=== PATIENT | female | born 1945 | race Caucasian/White ===

== ENCOUNTER 2019-03-27 11:46 | Emergency (ER) | payer MEDICARE, OTHER, SELFPAY ==
--- NOTE | ~2019-03-27 | XR_ITS ---
EXAMINATION: XR chest 2V EXAM DATE: 03/27/2019 12:43 INDICATION: Upper chest pain, jaw pain. TECHNIQUE: Frontal and lateral projections of the chest obtained and reviewed. Comparison is made to prior examination from 07/11/2018. FINDINGS: The lungs are clear. There are no pleural effusions. Mild cardiomegaly. There is no pneu mothorax suspected. The bones and soft tissues are unremarkable. There is no significant interval change. IMPRESSION: Mild cardiomegaly Reviewed, dictated and finalized at location B. PING AND RECEIVING WEIGHER IMPRESSION: Mild cardiomegaly
[2019-03-27 11:45] VITALS: BP 161/79; PULSE 86; RESP 18; TEMP 36.3; O2SAT 96
[2019-03-27 11:49] VITALS: PULSE 82
--- NOTE | 2019-03-27 11:59 | ECG_ITS ---
Measurements Intervals [place] Rate: 81 P: 60 PA: 200 QRS: -44 QRSD: 157 T: 75 QT: 417 QTc: 486 Interpretive Statements SINUS RHYTHM LEFT AXIS DEVIATION BORDERLINE AV CONDUCTION DELAY LEFT BUNDLE BRANCH BLOCK INFERIOR INFARCT OR DUE TO LBBB ABNORMAL ECG Electronically Signed On 03-27-2019 16:14:23 CONTROLLED AREA CHECKER by Tom Hernandez D.O.
--- NOTE | 2019-03-27 12:09 | ED.CHESTPAIN ---
HPI - Chest Pain General Chief Complaint: Chest Pain Stated Complaint: chest pain Time Seen by Provider: 03/27/19 12:06 Source: patient Mode of arrival: EMS Limitations: no limitations History of Present Illness HPI narrative: The pt is a 74 y/o female who presents to the ED, via EMS, c/o midsternal CP onset [id number] today. Pt describes the pain as a pressure that radiates to the jaw. Pt states that the pain was a 10/10, and lasted for 30 minutes. She states when she called EMS, her pain was still presently slightly, but was fully resolved with Aspirin x4 and nitroglycerin. Pt notes that nothing exacerbated her pain. Pt denies SOB, N/V, and diaphoresis. She states that she has a PMHx of HTN and DM, and notes that she had a stress test six months ago at this hospital that was unremarkable. complaint: chest pain Onset (ago): hour(s) (1.25-1.5) Timing of current episode: now resolved Pain location: other (Midsternal) Pain radiation: jaw/teeth Pain scale (0-10): 10 Quality: other (Pressure) Relieving factors: nitroglycerin and other (Aspirin) Exacerbating factors: nothing Associated symptoms: other (None) Treatment prior to arrival: aspirin and nitroglycerin Related Data Home Medications Medication Instructions Recorded Confirmed ketotifen fumarate 0.025 % (0.035 2 drop EACH EYE BID ml 02/06/ %) eye drops cholecalciferol (vitamin D3) 03/27/19 Allergies Allergy/AdvReac Type Severity Reaction Status Date / Time No Known Allergies Allergy Verified 03/27/19 11:58 Review of Systems Review of Systems: Narrative: Review of Systems Constitutional: Negative for diaphoresis. Respiratory: Negative for shortness of breath. Cardiovascular: Positive for resolved midsternal chest pain described as a pressure radiating to the jaw. Gastrointestinal: Negative for nausea and vomiting. All systems reviewed & are unremarkable except as noted in HPI and below PMFSH Past Medical History Medical History (Updated 03/27/19 @ 16:11 by Odalis Jin MD) Anxiety Bilateral hip pain Carpal tunnel syndrome Dyslipidemia Gastroesophageal reflux disease Gout Hammer toe Hepatic steatosis HLD (hyperlipidemia) HTN (hypertension) IFG (impaired fasting glucose) Intraductal papillary mucinous neoplasia Left bundle branch block Metabolic syndrome Pancreatic cyst Primary osteoarthritis of left knee Primary osteoarthritis of right knee Right clavicle fracture RLS (restless legs syndrome) Sleep apnea Uses CPAP Type 2 diabetes mellitus with diabetic neuropathy, without long-term current use of insulin Vitamin D deficiency, unspecified Surgical History Surgical History (Updated 03/27/19 @ 12:20 by Harpal Hurt) H/O: hysterectomy History of orthopedic surgery Right toe surgery Hx of tonsillectomy Presence of right artificial knee joint Family History Family History (Updated 10/22/13 @ 07:13 by DOCTOR UNKNOWN) Mother Cerebrovascular accident Father Family history of coronary artery disease Other Family history of arthritis Hypertension Social History Social History Smoking status: Never smoker Alcohol intake: never Comments PCP: Dr. Mack Exam Narrative: Exam Narrative: Constitutional: Appears well-developed. No distress. HENT: Head: Normocephalic. Nose: Nose normal. Mouth/Throat: Oropharynx is clear and moist. Eyes: Conjunctiva are normal. Neck: Normal range of motion. Neck supple. Cardiovascular: Normal rate and regular rhythm. Pulmonary/Chest: Effort normal and breath sounds normal. Abdominal: Soft. There is no tenderness. Musculoskeletal: Normal range of motion. No edema. Neurological: Alert and oriented to person, place, and time. Skin: Skin is warm. No pallor. Psychiatric: Normal mood and affect. Course Vital Signs Vital signs: Vital Signs Temperature 36.3 C L 03/27/19 11:45 Pulse Rate 86 03/27/19 11:45 Respiratory Rate 18 03/27/19 11:45 Blood Pres
[2019-03-27 12:16] VITALS: BP 128/69; PULSE 88; RESP 18; O2SAT 92
[2019-03-27 12:20] LABS: Basophils Absolute Auto 0.1 K/mm3 (0.0-0.1); Basophils Percent Auto 0.8 % (0.2-1.2); Eosinophils Absolute Auto 0.2 K/mm3 (0-0.3); Hemoglobin 12.5 g/dL (12.0-15.0); Immature Granulocyte Absolute 0.02 K/mm3 (0.00-0.031); Immature Granulocyte Percent A 0.3 % (0-0.5); Lymphocytes Absolute Auto 2.39 K/mm3 (0.9-3.2); Lymphocytes Percent Auto 32.9 % (18.3-44.2); Mean Corpuscular HGB Conc 32.1 g/dl (32-36); Mean Corpuscular Hemoglobin 26.4 pg (26-34); Mean Corpuscular Volume 82.5 fl (80-100); Mean Platelet Volume 10.4 fl (7.4-10.4); Monocytes Absolute Auto 0.6 K/mm3 (0.1-0.6); Platelet Count Result 254 k/mm3 (150-375); Red Blood Count 4.73 M/mm3 (4.2-5.4); Red Cell Distribution Width 14.2 % (11.5-14.5); White Blood Count 7.3 K/mm3 (4.5-10.0)
[2019-03-27 12:31] LABS: Blood Urea Nitrogen 14 mg/dL (7-17); Calcium 9.2 mg/dL (8.4-10.2); Carbon Dioxide 26 mmol/L (22-30); Chloride 96 mmol/L (98-107); Estimated CRCL calculation 68 ml/min; Estimated Glomerular Filt Rate > 60; Glucose 119 mg/dL (65-105); Potassium 3.8 mmol/L (3.4-5.0); Sodium 136 mmol/L (137-145)
[2019-03-27 12:35] LABS: Prothrombin Time 12.5 Seconds (11.1-14.7)
[2019-03-27 12:36] LABS: Partial Thromboplastin Time 28.6 SECONDS (22.3-36.8)
[2019-03-27 12:43] LABS: Troponin I < 0.012 ng/mL (0.000-0.034)
[2019-03-27 13:02] VITALS: BP 118/60; PULSE 71; RESP 18; O2SAT 94
[2019-03-27 15:04] VITALS: BP 124/69; PULSE 68; RESP 18; O2SAT 95
[2019-03-27 15:31] LABS: Troponin I < 0.012 ng/mL (0.000-0.034)
[2019-03-27 16:23] VITALS: BP 130/65; PULSE 65; RESP 15; O2SAT 94
== END 2019-03-27 16:27 | disposition home or self-care (01) ==
PROVIDERS: General Practice; Emergency Provider Emergency Medicine; PCP Family Medicine
DX: R07.2 Precordial pain (principal); I10 Essential (primary) hypertension; E78.5 Hyperlipidemia, unspecified; K21.9 Gastro-esophageal reflux disease without esophagitis; M17.0 Bilateral primary osteoarthritis of knee; G25.81 Restless legs syndrome; E11.40 Type 2 diabetes mellitus with diabetic neuropathy, unspecified; E55.9 Vitamin D deficiency, unspecified; Z96.651 Presence of right artificial knee joint; I44.7 Left bundle-branch block, unspecified; R94.31 Abnormal electrocardiogram [ECG] [EKG]
CPT/HCPCS: 36415; 71046; 80048; 84484; 85025; 85610; 85730; 93005; 99284

== ENCOUNTER 2019-04-09 11:38 | Outpatient (CLI) | payer MEDICARE, OTHER, SELFPAY ==
--- NOTE | ~2019-04-09 | MMUS_ITS ---
EXAMINATION: MM diagnostic mammo unilat LT, US breast LT limited HISTORY: Focal asymmetry in upper left breast on screening MLO view of 03/17/2019 TECHNIQUE: Additional 3-D tomosynthesis images of the left breast were performed and synthetic 2-D im ages were generated. CAD analysis was submitted and interpreted. High resolution upper inner and uppe r outer quadrant left breast ultrasound examination was performed. COMPARISON: 03/17/2019 bilateral digital screening mammogram MAMMOGRAM FINDINGS: No reproducible mass is evident on orthogonal views. There is likely mild asymmet nidhi fibroglandular stroma posteriorly in the upper left breast. Ultrasound correlation was obtained. LEFT BREAST ULTRASOUND FINDINGS:No suspicious mass or shadowing is evident. IMPRESSION: 1. Probable benign mild fibroglandular asymmetry 2. 6 month diagnostic left mammogram follow-up is recommended. BI-RADS category 3, probably benign findings. Reviewed, dictated and finalized at location A. URY PURIFIER IMPRESSION: 1. Probable benign mild fibroglandular asymmetry 2. 6 month diagnostic left mammogram follow-up is recommended. BI-RADS category 3, probably benign findings.
== END 2019-04-09 11:39 | disposition home or self-care (01) ==
LOC: ANHIMG 11:39
PROVIDERS: PCP Family Medicine; Visit Provider Family Medicine
DX: R92.8 Other abnormal and inconclusive findings on diagnostic imaging of breast (principal)
CPT/HCPCS: 76642; 77065

== ENCOUNTER 2019-04-27 15:02 | Outpatient (CLI) | payer MEDICARE, OTHER, SELFPAY ==
--- NOTE | ~2019-04-27 | XR_ITS ---
XR hip RT 2V w AP pelvis 04/27/2019 15:27 Indication: Right hip pain Procedure: AP pelvis and 2 views right hip Comparison: No prior studies for comparison. Findings: There is mild osteoarthritis of the hips. Pelvic rings are intact. Sacral foramen are symme tric. No fracture or traumatic malalignment. Impression: 1: Mild osteoarthritis of the hips. Reviewed, dictated and finalized at location B. NERY OPERATOR [employer]OVERY Impression: 1: Mild osteoarthritis of the hips.
== END 2019-04-27 15:03 | disposition home or self-care (01) ==
PROVIDERS: PCP Family Medicine; Visit Provider Physician Assistant
DX: M25.551 Pain in right hip (principal); M16.0 Bilateral primary osteoarthritis of hip
CPT/HCPCS: 73502; 73521

== ENCOUNTER 2019-04-29 13:37 | Outpatient (CLI) | payer MEDICARE, OTHER, SELFPAY ==
--- NOTE | ~2019-04-29 | US_ITS ---
US soft tissue groin RT 04/29/2019 14:20 Indication: Right hip pain Procedure: High-resolution ultrasound of the right groin Comparison: No prior studies for comparison. Findings: Normal heterogeneous soft tissues without evidence for hernia. There is a 2.3 cm lymph node with normal fatty hilum. Impression: 1: Normal limited ultrasound of the right groin without evidence for hernia. Reviewed, dictated and finalized at location B. ETOLOGY TEACHER Impression: 1: Normal limited ultrasound of the right groin without evidence for hernia.
== END 2019-04-29 13:38 | disposition home or self-care (01) ==
PROVIDERS: PCP Family Medicine; Visit Provider Physician Assistant
DX: M25.551 Pain in right hip (principal)
CPT/HCPCS: 76882

== ENCOUNTER 2019-12-08 12:01 | Outpatient (CLI) | payer MEDICARE, OTHER, SELFPAY ==
--- NOTE | ~2019-12-08 | MMUS_ITS ---
EXAMINATION: MM diagnostic [place] LT w camille, US breast LT limited HISTORY: Follow-up left breast asymmetry TECHNIQUE: Additional 3-D tomosynthesis images of the left breast were performed and synthetic 2-D im ages were generated. CAD analysis was submitted and interpreted. High resolution Limited left breast ultrasound was performed. COMPARISON: 03/17/2019 BREAST PARENCHYMAL COMPOSITION: Breast composed of scattered areas of fibroglandular density. FINDINGS: MAMMOGRAPHIC FINDINGS: There is persistent focal asymmetry central aspect of the left breast posteriorly on MLO view only. N o discrete mass or suspicious calcifications are identified. ULTRASOUND: Limited left breast ultrasound: Normal heterogeneous echotexture without focal solid or cystic mass. IMPRESSION: 1. Stable left breast asymmetry without sonographic correlate, likely benign. 2. Recommend 6 month follow-up bilateral mammogram BI-RADS category 3, probably benign findings. Reviewed, dictated and finalized at location A. IMPRESSION: 1. Stable left breast asymmetry without sonographic correlate, likely benign. 2. Recommend 6 month follow-up bilateral mammogram BI-RADS category 3, probably benign findings.
== END 2019-12-08 12:02 | disposition home or self-care (01) ==
PROVIDERS: PCP Family Medicine; Visit Provider Family Medicine
DX: R92.8 Other abnormal and inconclusive findings on diagnostic imaging of breast (principal)
CPT/HCPCS: 76642; 77061; 77065; G0279

== ENCOUNTER 2020-06-13 14:30 | Outpatient (CLI) | payer MEDICARE, OTHER, SELFPAY ==
--- NOTE | ~2020-06-13 | XR_ITS ---
XR chest 2V DATE: 06/13/2020 14:48 INDICATION: Cough TECHNIQUE: PA and lateral views COMPARISON: 2 view chest FINDINGS: There is mild cardiomegaly. No hilar or mediastinal enlargement. Mild bilateral apical capp ing. There is old pulmonary granulomatous disease. No pulmonary infiltrate or consolidation, pleural effusion or pulmonary vascular congestion or pneumothorax is evident. Diffuse osteopenia. IMPRESSION: Mild cardiomegaly No active pulmonary disease Reviewed, dictated and finalized at location A.
== END 2020-06-13 14:31 | disposition home or self-care (01) ==
PROVIDERS: PCP Family Medicine; Visit Provider Family Medicine
DX: R05 Cough (principal); I51.7 Cardiomegaly
CPT/HCPCS: 71046

== ENCOUNTER 2020-09-06 13:09 | Outpatient (CLI) | payer MEDICARE, OTHER, SELFPAY ==
--- NOTE | ~2020-09-06 | MM_ITS ---
EXAMINATION: MM diagnostic [place] BI w camille HISTORY: Six-month follow-up for probably benign asymmetry of the left breast. TECHNIQUE: Craniocaudal, mediolateral, and mediolateral oblique 3-D tomosynthesis images of the breas ts were performed and synthetic 2-D images were generated. CAD analysis was submitted and interpreted . COMPARISON: Prior mammograms dating back to 12/19/2015 BREAST PARENCHYMAL COMPOSITION: There are scattered areas of fibroglandular density. FINDINGS: There is no evidence of suspicious mass, calcification, or architectural distortion in eit her breast to suggest malignancy. There has been no suspicious interval change. The left breast asym metry has a similar appearance on multiple prior mammograms dating back to 2015. IMPRESSION: 1. No mammographic evidence of malignancy. 2. Recommend routine screening mammography in one year. BI-RADS Category 2: Benign finding(s). Reviewed, dictated and finalized at location A.
== END 2020-09-06 13:10 | disposition home or self-care (01) ==
PROVIDERS: PCP Family Medicine; Visit Provider Family Medicine
DX: R92.8 Other abnormal and inconclusive findings on diagnostic imaging of breast (principal)
CPT/HCPCS: 77062; 77066; G0279

== ENCOUNTER 2020-09-14 11:27 | Emergency (ER) | payer MEDICARE, OTHER, SELFPAY ==
[2020-09-14] VITALS (9 sets, daily range): BP systolic 132–143; BP diastolic 59–80; PULSE 74–82; RESP 13–22; TEMP 36.2; O2SAT 97–98
--- NOTE | ~2020-09-14 | US_ITS ---
US venous doppler [facility] DATE: 09/14/2020 15:32 INDICATION: Pain and swelling of right lower extremity. Abnormal d-dimer. TECHNIQUE: Real-time and color flow imaging and Doppler analysis COMPARISON: None FINDINGS: The greater saphenous veins are patent patent. There is spontaneous and phasic flow and nor mal augmentation and color flow signal and normal compression of the deep veins of the right and left lower extremities IMPRESSION: No evidence of deep venous thrombosis of the lower extremities Reviewed, dictated and finalized at Location A. Reviewed, dictated and finalized at location A.
[2020-09-14 12:51] LABS: Basophils Absolute Auto 0.1 K/mm3 (0.0-0.1); Eosinophils Absolute Auto 0.2 K/mm3 (0-0.3); Eosinophils Percent Auto 3.8 % (0-4.4); Hematocrit 37.3 % (37.0-47.0); Hemoglobin 11.8 g/dL (12.0-15.0); Immature Granulocyte Absolute 0.01 K/mm3 (0.00-0.031); Immature Granulocyte Percent A 0.2 % (0-0.5); Lymphocytes Absolute Auto 2.61 K/mm3 (0.9-3.2); Lymphocytes Percent Auto 41.6 % (18.3-44.2); Mean Corpuscular HGB Conc 31.6 g/dl (32-36); Mean Corpuscular Hemoglobin 26.6 pg (26-34); Mean Corpuscular Volume 84.2 fl (80-100); Mean Platelet Volume 10.7 fl (7.4-10.4); Monocytes Absolute Auto 0.6 K/mm3 (0.1-0.6); Monocytes Percent Auto 10.2 % (2.6-8.5); Neutrophils Absolute Auto 2.7 K/mm3 (1.3-6.7); Neutrophils Percent Auto 43.2 % (45.5-73.1); Platelet Count Result 240 k/mm3 (150-375); Red Blood Count 4.43 M/mm3 (4.2-5.4); Red Cell Distribution Width 14.6 % (11.5-14.5); White Blood Count 6.3 K/mm3 (4.5-10.0)
[2020-09-14 13:01] LABS: Alanine Aminotransferase 38 U/L (4-35); Albumin Level 4.2 g/dL (3.5-5.1); Alkaline Phosphatase 86 U/L (38-126); Anion Gap 10 mmol/L (8-16); Aspartate Amino Transferase 50 U/L (14-36); Bilirubin,Total 0.5 mg/dL (0.2-1.3); Blood Urea Nitrogen 18 mg/dL (7-17); Calcium 9.1 mg/dL (8.4-10.2); Carbon Dioxide 27 mmol/L (22-30); Chloride 101 mmol/L (98-107); Estimated CRCL calculation 82 ml/min; Estimated Glomerular Filt Rate > 60; Glucose 97 mg/dL (65-110); Potassium 3.6 mmol/L (3.4-5.0); Sodium 138 mmol/L (137-145)
[2020-09-14 13:07] LABS: Add Urine Microscopic? YES; Appearance Urine Clear (Clear); Bacteria Urine Trace /hpf; Bilirubin Urine Negative (Negative); Blood Urine Negative (Negative); Color Urine Yellow (Yellow); Glucose Urine UA Negative (Negative); Ketones Urine Negative (Negative); Leukocyte Esterase Ur Negative LEU/UL (Negative); Mucus Urine Rare /lpf; Nitrate Urine Negative (Negative); Protein Urine Negative (Negative); RBC Urine 0-2 /hpf (0-2); Specific Grav Ur 1.016 (1.001-1.035); Squamous Epithelial Cell Urine Occasional /hpf (Few); Urobilinogen Urine Negative mg/dL (<2.0); WBC Urine 0-3 /hpf
[2020-09-14 13:09] LABS: NT Pro B Type Natriuretic Pept 235 pg/mL (5-100)
--- NOTE | 2020-09-14 13:14 | PC.NURSE ---
called hematology added on a D ddimer at 1311 and talked to Margaret
[2020-09-14 13:32] LABS: D Dimer 0.75 ug/mL (<0.48)
--- NOTE | 2020-09-14 14:56 | ED.EXTPRO ---
HPI - Extremity Problem General Chief complaint: Extremity Problem,Nontraumatic Stated complaint: LOWER EXT SWELLING Time Seen by Provider: 09/14/20 12:23 Source: patient Mode of arrival: ambulatory Limitations: no limitations History of Present Illness HPI Narrative: 75-year-old female Patient is here because of lower extremity swelling She went to an urgent care and they were concerned for blood clot and referred her to the ED Patient reports that her left leg is chronically swollen However it is a little more painful since yesterday Her right leg which is usually not swollen is a little bit more swollen but not painful She had a knee replacement on the right Related Data Home Medications Medication Instructions Recorded Confirmed cholecalciferol (vitamin D3) 03/27/19 06/13/20 cyclosporine 0.05 % eye drops in a 1 drp OPHTHALMIC (EYE) Q12H 03/15/20 06/13/20 dropperette Allergies Allergy/AdvReac Type Severity Reaction Status Date / Time No Known Allergies Allergy Verified 09/14/20 11:41 PMF Past Medical History Medical History (Updated 09/14/20 @ 15:49 by Endy Keith MD) Anxiety Bilateral hip pain Carpal tunnel syndrome Dyslipidemia Gastroesophageal reflux disease Gout Hammer toe Hepatic steatosis HLD (hyperlipidemia) HTN (hypertension) IFG (impaired fasting glucose) Intraductal papillary mucinous neoplasia Left bundle branch block Metabolic syndrome Pancreatic cyst Primary osteoarthritis of left knee Primary osteoarthritis of right knee Right clavicle fracture RLS (restless legs syndrome) Sleep apnea Uses CPAP Type 2 diabetes mellitus with diabetic neuropathy, without long-term current use of insulin Vitamin D deficiency, unspecified Surgical History Surgical History (Updated 07/15/20 @ 08:20 by Tania Daniel CMA) H/O cataract extraction Bilateral eyes June 2020 H/O: hysterectomy History of orthopedic surgery Right toe surgery Hx of tonsillectomy Presence of right artificial knee joint Family History Family History Mother Cerebrovascular accident Father Family history of coronary artery disease Other Family history of arthritis Hypertension Social History Social History (Updated 07/15/20 @ 08:15 by Tania Daniel CMA) Smoking status: Never smoker Second hand tobacco smoke exposure: No Alcohol intake: never Substance use: never Substance use type: does not use Gender identity (if verbalized by the patient): Female Course Vital Signs Vital signs: Vital Signs Temperature 36.2 C L 09/14/20 11:38 Pulse Rate 75 09/14/20 11:38 Respiratory Rate 18 09/14/20 11:38 Blood Pressure 143/59 H 09/14/20 11:38 Pulse Oximetry 97 09/14/20 11:38 Temperature 36.2 C L 09/14/20 11:38 Pulse Rate 82 09/14/20 12:49 Respiratory Rate 17 09/14/20 12:49 Blood Pressure 138/62 09/14/20 12:16 Pulse Oximetry 98 09/14/20 12:43 MDM - Extremity (Nontraumatic) Lab Data Result diagrams: 09/14/20 12:42 09/14/20 12:42 Labs: Lab Results 09/14/20 09/14/20 09/14/20 Range/Units 12:42 12:42 12:42 WBC 6.3 (4.5-10.0) K/mm3 RBC 4.43 (4.2-5.4) M/mm3 Hgb 11.8 L (12.0-15.0) g/dL Hct 37.3 (37.0-47.0) % MCV 84.2 (80-100) fl MCH 26.6 (26-34) pg MCHC 31.6 L (32-36) g/dl RDW 14.6 H (11.5-14.5) % Plt Count 240 (150-375) k/mm3 MPV 10.7 H (7.4-10.4) fl Immature Gran % (Auto) 0.2 (0-0.5) % Neut % (Auto) 43.2 L (45.5-73.1) % Lymph % (Auto) 41.6 (18.3-44.2) % Wolfe % (Auto) 10.2 H (2.6-8.5) % Eos % (Auto) 3.8 (0-4.4) % Baso % (Auto) 1.0 (0.2-1.2) % Lymph # (Auto) 2.61 (0.9-3.2) K/mm3 Wolfe # (Auto) 0.6 (0.1-0.6) K/mm3 Eos # (Auto) 0.2 (0-0.3) K/mm3 Baso # (Auto) 0.1 (0.0-0.1) K/mm3 Abs Immat Gran (auto) 0.01 (0.00-0.031) K/mm3 Absolute Neuts (auto)
--- NOTE | 2020-10-13 16:58 | ED.EXTPRO ---
HPI - Extremity Problem General Chief complaint: Extremity Problem,Nontraumatic Stated complaint: LOWER EXT SWELLING Time Seen by Provider: 09/14/20 12:23 Source: patient Mode of arrival: ambulatory Limitations: no limitations Related Data Home Medications Medication Instructions Recorded Confirmed cholecalciferol (vitamin D3) 03/27/19 06/13/20 cyclosporine 0.05 % eye drops in a 1 drp OPHTHALMIC (EYE) Q12H 03/15/20 06/13/20 dropperette Allergies Allergy/AdvReac Type Severity Reaction Status Date / Time No Known Allergies Allergy Verified 09/14/20 11:41 Review of Systems Review of Systems: All systems reviewed & are unremarkable except as noted in HPI and below Constitutional: Constitutional: Reports no additional constitutional complaints, Denies chills, Denies fever(s) and Denies headache(s) Eyes: Eyes: Reports no additional eye complaints and Denies change in vision ENT: Denies headache(s) and Denies sore throat Cardiovascular: Cardiovascular: Denies chest pain and Denies dyspnea Respiratory: Respiratory: Denies cough and Denies dyspnea Gastrointestinal: Gastrointestinal: Denies abdominal pain, Denies diarrhea and Denies vomiting Genitourinary: Genitourinary: Denies urinary frequency and Denies dysuria Musculoskeletal: Musculoskeletal: Denies deformity, Denies arthralgias, Reports joint swelling and Denies numbness Integumentary/Breasts: Skin/Breast: Denies rash and Denies wounds Neurologic: Denies headache(s), Denies focal weakness and Denies numbness Psychiatric: Psychiatric: Reports no additional psychiatric complaints Endocrine: Endocrine: Reports no additional endocrine complaints Hematologic/Lymphatic: Hematologic/Lymphatic: Reports no additional hematologic/lymphatic complaints Allergic/Immunologic: Allergic/Immunologic: Reports no additional allergic/immunologic complaints [facility] Past Medical History Medical History (Updated 09/15/20 @ 00:01 by Background Sierra) Anxiety Bilateral hip pain Carpal tunnel syndrome Dyslipidemia Gastroesophageal reflux disease Gout Hammer toe Hepatic steatosis HLD (hyperlipidemia) HTN (hypertension) IFG (impaired fasting glucose) Intraductal papillary mucinous neoplasia Left bundle branch block Metabolic syndrome Pancreatic cyst Primary osteoarthritis of left knee Primary osteoarthritis of right knee Right clavicle fracture RLS (restless legs syndrome) Sleep apnea Uses CPAP Type 2 diabetes mellitus with diabetic neuropathy, without long-term current use of insulin Vitamin D deficiency, unspecified Surgical History Surgical History (Updated 07/15/20 @ 08:20 by Tania Daniel CMA) H/O cataract extraction Bilateral eyes June 2020 H/O: hysterectomy History of orthopedic surgery Right toe surgery Hx of tonsillectomy Presence of right artificial knee joint Family History Family History Mother Cerebrovascular accident Father Family history of coronary artery disease Other Family history of arthritis Hypertension Social History Social History (Updated 07/15/20 @ 08:15 by Tania Daniel CMA) Smoking status: Never smoker Second hand tobacco smoke exposure: No Alcohol intake: never Substance use: never Substance use type: does not use Gender identity (if verbalized by the patient): Female Exam Const: General: cooperative and no acute distress Orientation/consciousness: patient oriented x3 (alert) HENMT: Head: normal to inspection, normocephalic and atraumatic Ears: external ears normal General nose exam: no epistaxis Eyes: Conjunctivae: conjunctivae normal EOM: EOMs intact bilaterally Neck: Neck: normal visual inspection, supple and no JVD Resp: Effort & Inspection: normal respiratory effort and not labored Auscultation: no rales, no rhonchi, no wheezes and other (BS =) Cardio: Rate: regular rate Rhythm: regular rhythm Heart sounds:
== END 2020-09-14 15:58 | disposition home or self-care (01) ==
PROVIDERS: Emergency Provider Emergency Medicine; PCP Family Medicine
DX: R60.0 Localized edema (principal); F41.9 Anxiety disorder, unspecified; E78.5 Hyperlipidemia, unspecified; K21.9 Gastro-esophageal reflux disease without esophagitis; K76.0 Fatty (change of) liver, not elsewhere classified; I10 Essential (primary) hypertension; E11.40 Type 2 diabetes mellitus with diabetic neuropathy, unspecified; Z79.4 Long term (current) use of insulin; M17.0 Bilateral primary osteoarthritis of knee; G25.81 Restless legs syndrome; G47.30 Sleep apnea, unspecified; E55.9 Vitamin D deficiency, unspecified; Z98.42 Cataract extraction status, left eye; Z98.41 Cataract extraction status, right eye; Z96.651 Presence of right artificial knee joint
CPT/HCPCS: 36415; 80053; 81001; 83880; 85025; 85380; 93970; 99284

== ENCOUNTER → 2020-09-30 01:10 | Outpatient (CLI) | payer MEDICARE, OTHER, SELFPAY ==
[2020-10-01 21:34] LABS: SARS-CoV-2 RNA PCR Negative
== END ==
PROVIDERS: PCP Family Medicine; Visit Provider Physician Assistant
DX: Z20.822 Contact with and (suspected) exposure to COVID-19 (principal); R05 Cough
CPT/HCPCS: C9803; U0003; U0005

== ENCOUNTER → 2021-02-22 02:08 | Outpatient (CLI) | payer MEDICARE, OTHER, SELFPAY ==
[2021-02-23 02:21] LABS: SARS-CoV-2 RNA PCR Negative
== END ==
PROVIDERS: PCP Family Medicine; Visit Provider Physician Assistant
DX: R05.9 Cough, unspecified (principal); R68.89 Other general symptoms and signs; Z20.822 Contact with and (suspected) exposure to COVID-19
CPT/HCPCS: C9803; U0003; U0005

== ENCOUNTER 2021-05-05 09:46 | Outpatient (CLI) | payer MEDICARE, OTHER, SELFPAY ==
--- NOTE | ~2021-05-05 | US_ITS ---
EXAMINATION: US carotid duplex BI EXAM DATE: 05/05/2021 10:19 INDICATION: R42 - Dizziness and giddiness. TECHNIQUE: Grayscale, color and pulsed Doppler images of the cervical carotid arteries were obtained . The degree of vessel stenosis is placed in one of the following categories: normal, <50% stenosis, 50-69% stenosis, >=70% stenosis but less than near-occlusion, near-occlusion, or occlusion. Note that percent stenosis relative to normal distal artery lumen diameter is indirectly measured from velocit y measurements as described by Sean, et al. Radiology 2003; 229:340-346. There is no prior study fo r comparison. FINDINGS: Occasional irregular beat, could be VPC. RIGHT SIDE: Right common carotid artery peak systolic velocity (PSV in cm/s): 90 Right bulb/internal carotid artery peak systolic velocity (PSV in cm/s): 52 Right internal carotid artery end diastolic velocity (EDV in cm/s): 10 Right ICA/CCA peak systolic ratio: 0.6 Right external carotid artery peak systolic velocity (PSV in cm/s): 76 Right vertebral artery antegrade flow: yes There is no focal plaque identified. LEFT SIDE: Left common carotid artery peak systolic velocity (PSV in cm/s): 87 Left bulb/internal carotid artery peak systolic velocity (PSV in cm/s): 158 Left internal carotid artery end diastolic velocity (EDV in cm/s): 35 Left ICA/CCA peak systolic ratio: 1.8 Left external carotid artery peak systolic velocity (PSV in cm/s): 126 Left vertebral artery antegrade flow: yes There is mild carotid bulb plaque with discordant mildly elevated velocity. Visually, less than 50% stenosis category. IMPRESSION: 1. Normal right internal carotid artery. 2. Less than 50 percent stenosis in the left internal carotid artery. 3. Occasional irregular beat, could be VPC. Reviewed, dictated and finalized at location A. AGE DELIVERY ROOM SERVICE RUNNER
--- NOTE | ~2021-05-05 | CT_ITS ---
EXAMINATION: CT brain wo con EXAM DATE: 05/05/2021 10:24 INDICATION: R42 - Dizziness and giddiness TECHNIQUE: Spiral CT of the head was performed without contrast. Axial, coronal and sagittal images were reviewed. The dose-length product (DLP) for this examination was 605.33 mGy-cm. The exposure w as tailored according to patient size, and iterative reconstruction (ASIR) was used as additional dos e reduction technique. There is no prior study for comparison. FINDINGS: There is no acute intraparenchymal hemorrhage. No evidence of intraparenchymal brain mass lesion. No evidence of acute infarction. Please note that initial head CT has limited sensitivity f or small or acute infarctions. There is mild periventricular and subcortical hypodensity, nonspecific but probably related to small vessel ischemic disease. There is mild prominence of the sulci and v entricles related to cerebral atrophy. There is intracranial carotid arteriosclerosis. There are n o extra-axial collections. There is no mass effect or midline shift. Patient has had bilateral ocul ar lens surgery. Soft tissue is unremarkable. The visualized sinuses and mastoid air cells are well aerated. IMPRESSION: 1. No acute intracranial findings. 2. Chronic age related findings. Reviewed, dictated and finalized at location A. E TENDER
== END 2021-05-05 09:47 | disposition home or self-care (01) ==
PROVIDERS: PCP Family Medicine; Visit Provider Physician Assistant
DX: R42 Dizziness and giddiness (principal)
CPT/HCPCS: 70450; 93880

== ENCOUNTER 2021-06-24 14:55 | Emergency (ER) | payer MEDICARE, OTHER, SELFPAY ==
[2021-06-24] VITALS (7 sets, daily range): BP systolic 131–144; BP diastolic 59–67; PULSE 67–85; RESP 16–20; TEMP 36.7; O2SAT 91–97
--- NOTE | ~2021-06-24 | XR_ITS ---
EXAMINATION: XR chest 2V Exam Date/Time: 06/24/2021 15:50 CDT CLINICAL HISTORY: cough, WEAKNESS, HX HTN, DIABETIC, LOW GRADE FEVER Comparison: 06/13/2020. RESULT: Lines, tubes, and devices: None. Lungs and pleura: Clear. Cardiomediastinal silhouette: Stable cardiomediastinal silhouette. Other: No acute osseous or upper abdominal finding. IMPRESSION: No acute cardiopulmonary process Reviewed, dictated and finalized at location K.
--- NOTE | 2021-06-24 17:00 | ED.URI ---
HPI - URI/Sore Throat General Chief Complaint: Upper Respiratory Infection Stated Complaint: short of breath, cough and weakness Time Seen by Provider: 06/24/21 16:50 History of Present Illness HPI Narrative: pt said last week family and pt all had n/v/d flu bug got better then for last 2 days worsenign of her chronic cough no sob and chronic leg swelling isnt' worse and only cp is from soreness from coughing. pt says no f/travel home covid neg. got vaccine and flu shot too. no other sick contacts with cough. no other issues has inhaler at home and using Related Data Home Medications Medication Instructions Recorded Confirmed cyclosporine 0.05 % eye drops in a 1 drp OPHTHALMIC (EYE) Q12H 03/15/20 04/27/21 dropperette Allergies Allergy/AdvReac Type Severity Reaction Status Date / Time No Known Allergies Allergy Verified 06/24/21 16:19 Review of Systems Review of Systems: CONSTITUTIONAL: Denies fever, chills, or sweats. EYES: Denies visual changes, redness, or discharge. ENT: Denies rhinorrhea, congestion, sore throat, or otalgia. CARDIOVASCULAR: Denies chest pain, palpitations, or edema. RESPIRATORY: Denies dyspnea. has cough GASTROINTESTINAL: Denies abdominal pain, nausea, vomiting, or diarrhea. GENITOURINARY: Denies dysuria or hematuria. SKIN: Denies rash or itching. MUSCULOSKELETAL: Denies back pain, joint pain, or myalgia. NEUROLOGIC: Denies headache, numbness but overall weak PSYCHIATRIC: Denies anxiety or depression. [facility] Past Medical History Medical History Anxiety Bilateral hip pain Carpal tunnel syndrome Dyslipidemia Gastroesophageal reflux disease Gout Hammer toe Hepatic steatosis HLD (hyperlipidemia) HTN (hypertension) IFG (impaired fasting glucose) Intraductal papillary mucinous neoplasia Left bundle branch block Metabolic syndrome Pancreatic cyst Primary osteoarthritis of left knee Primary osteoarthritis of right knee Right clavicle fracture RLS (restless legs syndrome) Sleep apnea Uses CPAP Type 2 diabetes mellitus with diabetic neuropathy, without long-term current use of insulin Vitamin D deficiency, unspecified Surgical History Surgical History H/O cataract extraction Bilateral eyes June 2020 H/O: hysterectomy History of orthopedic surgery Right toe surgery Hx of tonsillectomy Presence of right artificial knee joint Family History Family History Mother Cerebrovascular accident Father Family history of coronary artery disease Other Family history of arthritis Hypertension Social History Social History Second hand tobacco smoke exposure: No Alcohol intake: never Substance use: never Substance use type: does not use Gender identity (if verbalized by the patient): Female Sexual Orientation (if Verbalized by the Patient): Straight or Heterosexual Exam Narrative: APPEARANCE: Well appearing, no pain in distress, well-nourished. Head normocephalic atraumtaic. EYES: PERRLA/EOMI, conjunctivae very clear. NOSE: Normal no drainage EARS:TMS clear Peggy Nieves, with good light reflex. THROAT: Pharynx clear, no exudate. NECK: Supple. No adenopathy, no masses. RESPIRATORY: Airway patent, repsirations nonlabored. Clear to auscultation bilaterally, no rales, rhonchi, wheezing. CARDIOVASCULAR: Regular rate and rhythm without murmurs rubs or gallops. ABDOMINAL: Soft, nontender, nondistended, no hepatosplenomegally MUSCULOSKELETAl: Moves all extremities. Strenght/ROM intact, No calf tenderness. has nonpitting chronic edema normal per pt NEURO: Alert. Cranial nerves II through XII intact. Good gait. Good coordination SKIN:: Warm, dry. Normal Color PSYCHIATRIC: Normal affect/mood, normal interaction with parents. Course Reevaluation(s) Reevaluation #1: pt updated o
[2021-06-24] MEDS: ALBUTEROL SULFATE NEB 2.5 MG/0.5 ML INH INHALATION (17:22)
[2021-06-24] MEDS: BENZONATATE 100 MG CAPSULE 200 MG PO (17:25)
[2021-06-24 17:26] LABS: Alveolar/Arterial O2 Gradient 40.5 mmHg; Base Excess ABG 2.6 mEq/l (+/-2.0); Fractional Inspired Oxygen 21 %; HCO3 ABG 27.2 mEq/l (22.0-26.0); Oxygen Saturation ABG 91.5 % (95.0-100.0); PCO2 ABG 41.6 mmHg (35.0-45.0); PO2 ABG 59.4 mmHg (80.0-100.0); PO2 FiO2 Ratio Arterial Blood 2.83 %; pH ABG 7.433 (7.350-7.450)
[2021-06-24 17:33] LABS: Modified Allen's Test Pass; Site Drawn LEFT RADIAL
[2021-06-24 18:19] LABS: Influenza A QL RT-PCR Negative (Negative); Influenza B QL RT-PCR Negative (Negative); SARS-CoV-2 RNA PCR Positive
== END 2021-06-24 19:20 | disposition home or self-care (01) ==
PROVIDERS: Emergency Provider Emergency Medicine; PCP Family Medicine
DX: U07.1 COVID-19 (principal); E78.5 Hyperlipidemia, unspecified; E11.40 Type 2 diabetes mellitus with diabetic neuropathy, unspecified; I10 Essential (primary) hypertension; M10.9 Gout, unspecified; E88.81 Metabolic syndrome and other insulin resistance; K21.9 Gastro-esophageal reflux disease without esophagitis; M17.0 Bilateral primary osteoarthritis of knee; G25.81 Restless legs syndrome; G47.30 Sleep apnea, unspecified; E55.9 Vitamin D deficiency, unspecified; Z98.42 Cataract extraction status, left eye; Z98.41 Cataract extraction status, right eye; Z79.84 Long term (current) use of oral hypoglycemic drugs; Z79.82 Long term (current) use of aspirin
CPT/HCPCS: 36600; 71046; 82805; 87502; 94640; 99284; A9270; C9803; U0003; U0005

== ENCOUNTER 2021-06-26 09:42 | Inpatient (IN) | payer MEDICARE, OTHER, SELFPAY ==
[2021-06-26] VITALS (22 sets, daily range): BP systolic 125–153; BP diastolic 61–94; PULSE 84–126; RESP 10–28; TEMP 36.6–37.2; O2SAT 92–98; BMI 38.9
--- NOTE | ~2021-06-26 | CT_ITS ---
EXAMINATION: CTA chest PE protocol DATE: 06/26/2021 13:30 INDICATION: Cough, shortness of breath, COVID 19 TECHNIQUE: Computed tomography angiography (CTA) of the chest was performed with 100 mL Omnipaque-350 intravenous contrast timed to evaluate the pulmonary arteries. Coronal maximum intensity projection 3D-reconstructions were created by the technologist. The dose-length product (DLP) was 624.40 mGy-cm. Automated exposure control and iterative reconstruction technique were employed. COMPARISON: 07/11/2018 FINDINGS: The pulmonary arteries are well-opacified. No pulmonary embolism is identified. There are a irspace opacities in the right upper lobe and lower lobes. There is interlobular septal thickening. T here are small left and moderate size right pleural effusions. Cardiomegaly is noted. There is no pne umothorax. There is mild right hilar lymphadenopathy. Calcified pulmonary nodules and calcified right hilar lymph nodes are consistent with old granulomatous disease. There is mild thoracic spondylosis. IMPRESSION: 1. No pulmonary embolus. 2. Cardiomegaly with mild pulmonary edema. 3. Airspace opacities in the right upper lobe lung bases could reflect superimposed pneumonia. 4. Small left and moderate size right pleural effusions. Reviewed, dictated and finalized at location A. IMPRESSION: 1. No pulmonary embolus. 2. Cardiomegaly with mild pulmonary edema. 3. Airspace opacities in the right upper lobe lung bases could reflect superimp osed pneumonia. 4. Small left and moderate size right pleural effusions.
--- NOTE | ~2021-06-26 | US_ITS ---
EXAMINATION: US venous doppler [facility] DATE: 06/26/2021 14:23 INDICATION: Lower limb pain. TECHNIQUE: Grayscale ultrasound images without and with compression and Doppler ultrasound images of the bilateral lower extremity veins were obtained. COMPARISON: Ultrasound 09/14/2020 FINDINGS: The visualized portions of right common femoral vein, profunda (deep) femoral vein, femoral vein, pop liteal vein, peroneal veins, posterior tibial veins, and greater saphenous vein outflow are patent. The visualized portions of left common femoral vein, profunda femoral vein, femoral vein, popliteal v ein, peroneal veins, posterior tibial veins, and greater saphenous vein outflow are patent. IMPRESSION: 1. No deep venous thrombosis. Reviewed, dictated and finalized at location B.
--- NOTE | ~2021-06-26 | XR_ITS ---
EXAMINATION: XR chest 1V portable INDICATION: Hypoxia, COVID 19 positive TECHNIQUE: Portable AP chest at 1030 hours COMPARISON: 06/24/2021 FINDINGS: Patchy opacities have developed in all lung zones. There is no pleural effusion or pneumoth orax. The cardiomediastinal silhouette is stable. IMPRESSION: 1. Diffuse lung disease, consistent with pneumonia and/or pulmonary edema. Reviewed, dictated and finalized at location A.
--- NOTE | 2021-06-26 10:51 | ECG_ITS ---
Measurements Intervals [place] Rate: 100 P: 29 AL: 176 QRS: -44 QRSD: 159 T: 68 QT: 388 QTc: 502 Interpretive Statements SINUS TACHYCARDIA LEFT AXIS DEVIATION LEFT BUNDLE BRANCH BLOCK ABNORMAL ECG Electronically Signed On 06-26-2021 17:43:29 CDT by Tom Hernandez D.O.
[2021-06-26 11:20] LABS: Basophils Absolute Auto 0.1 K/mm3 (0.0-0.1); Basophils Percent Auto 0.8 % (0.2-1.2); Eosinophils Absolute Auto 0.2 K/mm3 (0-0.3); Eosinophils Percent Auto 3.2 % (0-4.4); Hematocrit 38.1 % (37.0-47.0); Hemoglobin 12.2 g/dL (12.0-15.0); Immature Granulocyte Absolute 0.03 K/mm3 (0.00-0.031); Immature Granulocyte Percent A 0.4 % (0-0.5); Lymphocytes Absolute Auto 1.84 K/mm3 (0.9-3.2); Lymphocytes Percent Auto 25.4 % (18.3-44.2); Mean Corpuscular Hemoglobin 26.2 pg (26-34); Mean Corpuscular Volume 81.8 fl (80-100); Mean Platelet Volume 10.3 fl (7.4-10.4); Monocytes Absolute Auto 0.7 K/mm3 (0.1-0.6); Monocytes Percent Auto 9.5 % (2.6-8.5); Neutrophils Absolute Auto 4.4 K/mm3 (1.3-6.7); Neutrophils Percent Auto 60.7 % (45.5-73.1); Platelet Count Result 240 k/mm3 (150-375); Red Blood Count 4.66 M/mm3 (4.2-5.4); Red Cell Distribution Width 15.7 % (11.5-14.5); White Blood Count 7.2 K/mm3 (4.5-10.0)
--- NOTE | 2021-06-26 11:32 | ED.SOB ---
HPI - SOB/Dyspnea General Chief Complaint: Shortness of Breath/Dyspnea <Shasha Marlow PA-C - Last Filed: 06/26/21 19:20> Stated Complaint: covid, low sates <BRUNA Robert Last Filed: 06/26/21 19:20> Time Seen by Provider: 06/26/21 10:33 <BRNUA Robert Last Filed: 06/26/21 19:20> Source: patient <BRUNA Robert Last Filed: 06/26/21 19:20> Mode of arrival: wheelchair <BRUNA Robert Last Filed: 06/26/21 19:20> Limitations: no limitations <BRUNA Robert Last Filed: 06/26/21 19:20> History of Present Illness HPI Narrative: This is a 76-year-old female that presents to the emergency department for shortness of breath worsening over the last 2 days. Was recently diagnosed with COVID. She is vaccinated and boosted. Her symptoms started 3 days ago. Reports cough, congestion, sore throat, and fevers. She noted that her oxygen saturations at home were getting down into the 70s which prompted her to be seen today. She does report some chest tightness that is worse with coughing. Denies nausea or vomiting. <Shasha Marlow PA-C - Last Filed: 06/26/21 19:20> Related Data Home Medications: Home Medications Medication Instructions Recorded Confirmed albuterol sulfate [ProAir HFA] 1 puff INHALATION Q4H PRN 06/26/21 06/26/21 aspirin 81 mg PO HS 06/26/21 06/26/21 benzonatate 100 mg PO TID PRN 06/26/21 06/26/21 calcium carbonate [Calcium 600] 600 mg PO DAILY 06/26/21 06/26/21 fluticasone propionate [Flonase 2 spray NASAL DAILY PRN 06/26/21 06/26/21 Allergy Relief] pramipexole [Mirapex] 0.75 mg PO HS 06/26/21 06/26/21 simvastatin 20 mg PO HS 06/26/21 06/26/21 <Shasha Marlow PA-C - Last Filed: 06/26/21 19:20> Allergies/Adverse Reactions: Allergies Allergy/AdvReac Type Severity Reaction Status Date / Time No Known Allergies Allergy Verified 06/24/21 16:19 <Shasha Marlow PA-C - Last Filed: 06/26/21 19:20> Review of Systems Review of Systems: CONSTITUTIONAL: Reports fever ENT: Reports congestion, sore throat CARDIOVASCULAR: Reports chest pain, and edema. RESPIRATORY: Reports cough and dyspnea. GASTROINTESTINAL: Denies abdominal pain, nausea, vomiting <Shasha Marlow PA-C - Last Filed: 06/26/21 19:20> All systems reviewed & are unremarkable except as noted in HPI and below <Shasha Marlow PA-C - Last Filed: 06/26/21 19:20> [facility] Past Medical History Medical History: Medical History Anxiety Bilateral hip pain Carpal tunnel syndrome Dyslipidemia Gastroesophageal reflux disease Gout Hammer toe Hepatic steatosis HLD (hyperlipidemia) HTN (hypertension) IFG (impaired fasting glucose) Intraductal papillary mucinous neoplasia Left bundle branch block Metabolic syndrome Pancreatic cyst Primary osteoarthritis of left knee Primary osteoarthritis of right knee Right clavicle fracture RLS (restless legs syndrome) Sleep apnea Uses CPAP Type 2 diabetes mellitus with diabetic neuropathy, without long-term current use of insulin Vitamin D deficiency, unspecified <Shasha Marlow PA-C - Last Filed: 06/26/21 19:20> Surgical History Surgical History: Surgical History H/O cataract extraction Bilateral eyes June 2020 H/O: hysterectomy History of orthopedic surgery Right toe surgery Hx of tonsillectomy Presence of right artificial knee joint <Shasha Marlow PA-C - Last Filed: 06/26/21 19:20> Family History Family History: Family History Mother Cerebrovascular accident Father Family history of coronary artery disease Other Family history of arthritis Hypertension <BRUNA Robert Last Filed: 06/26/21 19:20> Social History Social History: Social History S
[2021-06-26 11:33] LABS: Lactic Acid Reflex 1.7 mmol/L (0.7-2.0)
[2021-06-26 11:34] LABS: Alanine Aminotransferase 28 U/L (4-35); Albumin Level 3.9 g/dL (3.5-5.1); Alkaline Phosphatase 61 U/L (38-126); Anion Gap 4 mmol/L (8-16); Aspartate Amino Transferase 41 U/L (14-36); Bilirubin,Total 0.7 mg/dL (0.2-1.3); Blood Urea Nitrogen 11 mg/dL (7-17); Calcium 8.6 mg/dL (8.4-10.2); Carbon Dioxide 29 mmol/L (22-30); Chloride 99 mmol/L (98-107); Estimated CRCL calculation 78 ml/min; Estimated Glomerular Filt Rate > 60; Glucose 138 mg/dL (65-110); Lactate Dehydrogenase 595 U/L (313-618); Potassium 3.4 mmol/L (3.4-5.0); Sodium 132 mmol/L (137-145)
[2021-06-26] MEDS: ALBUTEROL SULFATE (*SP) AEROSOL 1 PUFF 2 PUFF INHALATION ×2 (11:42→21:00)
[2021-06-26 11:58] LABS: Atypical Lymphocytes Present; Platelet Estimate Adequate (Adequate)
[2021-06-26 11:59] LABS: INR 1.1; Partial Thromboplastin Time 29.4 SECONDS (22.3-36.8)
[2021-06-26 12:02] LABS: D Dimer 0.85 ug/mL (<0.48)
[2021-06-26 12:03] LABS: CRP 3.9 mg/dL (<1.0)
[2021-06-26 12:11] LABS: NT Pro B Type Natriuretic Pept 3130 pg/mL (5-100); Troponin I 0.408 ng/mL (0.000-0.034)
--- NOTE | 2021-06-26 12:38 | PC.NURSE ---
NO IV PATIENT DIFFICULT IV STICK WILL NEED ULTRASOUND FOR ACCESS.
[2021-06-26] MEDS: REMDESIVIR 200 MG/NS 250 ML 200 MG/250 ML BAG 250 MG IVPB (13:17)
--- NOTE | 2021-06-26 13:30 | PC.NURSE ---
PT TO CT
[2021-06-26 13:36] LABS: Procalcitonin 0.1 ng/mL
[2021-06-26 15:03] LABS: Troponin I 0.498 ng/mL (0.000-0.034)
[2021-06-26] MEDS: FUROSEMIDE INJ 40 MG/4 ML VIAL IV PUSH (15:21)
[2021-06-26 15:32] LABS: Glucose Point of Care 151 mg/dl (65-105)
--- NOTE | 2021-06-26 17:26 | PM.IMHP ---
H&P: HPI History of Present Illness Date/Time: Patient was placed observation status for expected length of stay less than 23 hours for management, will plan to re-evaluate tomorrow for improvement. 06/26/21 17:26 Chief Complaint: Shortness of breath Narrative: Ms. Gómez Is a 76-year-old femaleWho presented to the emergency room with complaints of increasing shortness of breath since Saturday. Patient states she was seen in the emergency room on Saturday and was diagnosed with COVID-19.Patient states she has continued to have increasing shortness of breath and she called her primary care provider who told to come to the emergency room.Patient states that when she was seen in the emergency room over the weekend she was not given any steroids. Patient states that she does have chest discomfort with coughing. Patient states she is also had increasing edema to bilateral lower extremities with her left being greater than right, which is a chronic issue for her.Upon evaluation emergency room patient was noted to be hypoxic and had to have oxygen at 2 L per nasal cannula applied.Patient states she has had COVID-19 vaccination x2 and her first booster.Patient states she also was diagnosed with COVID-19 in January 2021. Patient states she has a known history of asthma, diabetes mellitus, hypertension, dyslipidemia, obstructive sleep apnea,Restless leg syndrome, and GERD.Patient states she recently did have an ultrasound of her heart performed at an outside facility as well as a left heart catheterization and she was told that she did not have any coronary artery disease and received no stents. Patient states that all this testing was done at [facility], [place]. Review of Systems Review of Systems: A 12 point review of systems was completed with patient all pertinent positive negative per HPI the remainder unremarkable [facility] Past Medical History Medical History Anxiety Bilateral hip pain Carpal tunnel syndrome Dyslipidemia Gastroesophageal reflux disease Gout Hammer toe Hepatic steatosis HLD (hyperlipidemia) HTN (hypertension) IFG (impaired fasting glucose) Intraductal papillary mucinous neoplasia Left bundle branch block Metabolic syndrome Pancreatic cyst Primary osteoarthritis of left knee Primary osteoarthritis of right knee Right clavicle fracture RLS (restless legs syndrome) Sleep apnea Uses CPAP Type 2 diabetes mellitus with diabetic neuropathy, without long-term current use of insulin Vitamin D deficiency, unspecified Surgical History Surgical History H/O cataract extraction Bilateral eyes June 2020 H/O: hysterectomy History of orthopedic surgery Right toe surgery Hx of tonsillectomy Presence of right artificial knee joint Family History Family History Mother Cerebrovascular accident Father Family history of coronary artery disease Other Family history of arthritis Hypertension Social History Social History Smoking status: Never smoker Second hand tobacco smoke exposure: No Alcohol intake: never Substance use: never Substance use type: does not use Gender identity (if verbalized by the patient): Female Sexual Orientation (if Verbalized by the Patient): Straight or Heterosexual Spiritual care concerns: No Meds Home Medications and Allergies Home Medications Medication Instructions Recorded Confirmed Type amlodipine 10 mg tablet 10 mg PO DAILY #90 tablet 11/07/20 06/26/21 Rx atenolol 50 mg tablet 50 mg PO DAILY #90 tablet 11/07/20 06/26/21 Rx chlorthalidone 25 mg tablet 25 mg PO DAILY #90 tablet 11/07/20 06/26/21 Rx citalopram 20 mg tablet 30 mg PO DAILY #135 tablet 11/07/20 06/26/21 Rx losartan 100 mg tablet 100 mg PO DAILY #90 tablet 11/07/20 06/26/21 Rx metformin 500 mg tab
[2021-06-26 17:40] LABS: Glucose Point of Care 190 mg/dl (65-105)
[2021-06-26 17:52] LABS: Troponin I 0.491 ng/mL (0.000-0.034)
--- NOTE | 2021-06-26 19:57 | ADMGEN ---
This patient, Scarlett Gómez, was admitted to IMU Room 209-01 @ 1635. Patient oriented to hospital policies and general routines including ID bracelet, bed and alarms, visiting hours, pain management, procedures, bathroom and other care routines, personal items, smoking policy, room service/diet, and visiting hours.Covid isolation initiated. O2 on 2l/nc VSS Information on how to activate the Rapid Response Team has been discussed. Patient encouraged to report perceived risks to care and to ask questions if they do not understand what they are told or what they should do.
[2021-06-26 19:59] LABS: Glucose Point of Care 266 mg/dl (65-105)
--- NOTE | 2021-06-26 21:14 | PCRCNOTE ---
RT had pharmacy send up albuterol inhaler because pt on covid isolation was identified as a new start. Upon entering room, RT discovered that pt already had an albuterol inhaler. The one sent up most recently by pharmacy (RX#[id number]) was sent back to pharmacy and marked as not given (duplicate dose) in APR. Pharmacy was contacted to D/C RX#[id number] in the APR.
[2021-06-26] MEDS: SIMVASTATIN 20 MG TABLET PO (21:24)
[2021-06-26] MEDS: ASPIRIN 81 MG ENTERIC TABLET PO (21:25)
[2021-06-26] MEDS: PRAMIPEXOLE 0.25 MG TABLET 0.75 MG PO (21:25)
--- NOTE | 2021-06-26 22:36 | PCRCNOTE ---
Pt set up on S9 CPAP unit with filtered circuit due to covid positive status.
[2021-06-27] VITALS (22 sets, daily range): BP systolic 118–135; BP diastolic 54–80; PULSE 67–102; RESP 18–22; TEMP 36.1–36.9; O2SAT 90–99
--- NOTE | 2021-06-27 02:04 | PCRCNOTE ---
Pt asked not to be woken up for 02:00 inhaler administration. When doing CPAP check at 02:00, pt was found to be asleep so was not woken for inhaler. Pt was advised earlier to let the nurse know if she woke up and wanted the inhaler.
[2021-06-27 05:00] LABS: INR 1.1; Prothrombin Time 14.1 Seconds (11.1-14.7)
[2021-06-27 05:11] LABS: Alanine Aminotransferase 27 U/L (4-35); Albumin Level 4.4 g/dL (3.5-5.1); Alkaline Phosphatase 58 U/L (38-126); Anion Gap 10 mmol/L (8-16); Aspartate Amino Transferase 41 U/L (14-36); Bilirubin,Total 0.7 mg/dL (0.2-1.3); Blood Urea Nitrogen 19 mg/dL (7-17); Calcium 8.6 mg/dL (8.4-10.2); Carbon Dioxide 27 mmol/L (22-30); Chloride 97 mmol/L (98-107); Estimated CRCL calculation 77 ml/min; Estimated Glomerular Filt Rate > 60; Glucose 158 mg/dL (65-110); Magnesium 2.1 mg/dL (1.6-2.3); Potassium 3.7 mmol/L (3.4-5.0); Sodium 134 mmol/L (137-145)
[2021-06-27] MEDS: FLUTICASONE PROPIONATE 0.05% NA SPR 16 GM BTL (*BKC) 2 SPRAY NASAL (06:10)
[2021-06-27 07:52] LABS: Glucose Point of Care 154 mg/dl (65-105)
[2021-06-27] MEDS: ALBUTEROL SULFATE (*SP) INHALER 2 PUFF INHALATION ×3 (08:09→21:00)
[2021-06-27] MEDS: FUROSEMIDE INJ 40 MG/4 ML VIAL IV PUSH ×2 (09:50→17:05)
[2021-06-27] MEDS: CITALOPRAM HYDROBROMIDE 10 MG TABLET 30 MG PO (09:50)
[2021-06-27] MEDS: CHOLECALCIFEROL 1,000 UNITS TABLET 1000 UNITS PO (09:51)
[2021-06-27] MEDS: atenoloL 50 MG TABLET PO (09:51)
[2021-06-27] MEDS: CALCIUM CARBONATE (OSCAL) 500 MG TABLET PO (09:51)
[2021-06-27] MEDS: amLODIPine BESYLATE 5 MG TABLET 10 MG PO (09:51)
[2021-06-27] MEDS: LOSARTAN POTASSIUM 100 MG TABLET PO (09:51)
[2021-06-27] MEDS: ENOXAPARIN 40 MG/0.4 ML SYRINGE SUB-Q (09:52)
[2021-06-27] MEDS: LORATADINE 5 MG TABLET PO (09:52)
[2021-06-27] MEDS: PANTOPRAZOLE 40 MG TABLET PO ×2 (09:52→20:32)
[2021-06-27] MEDS: MULTIVITAMINS THERAPEUTIC TAB (*BKC) 1 TABLET PO (09:52)
[2021-06-27] MEDS: REMDESIVIR 100 MG/NS 250 ML 100 MG/250 ML BAG 250 MG IVPB (10:41)
--- NOTE | 2021-06-27 10:47 | PM.CNCAR ---
Assessment and Plan Assessment and plan (1) Pneumonia due to 2019 novel coronavirus: Code(s): U07.1 - COVID-19; J12.82 - Pneumonia due to coronavirus disease 2019 Status: Acute Assessment and Plan: 76-year-old female with CHF with mildly reduced ejection fraction, severe mitral regurgitation, mild aortic stenosis, hypertension, varicose veins, type 2 diabetes mellitus, dyslipidemia, obstructive sleep apnea, restless leg syndrome, GERD. Patient admitted to hospital with COVID-19 pneumonia and respiratory failure. She has received steroids, remdesivir and is on supplemental oxygen. Patient had mild troponin elevation which is non ACS related in the setting of infection and CHF. She recently had cardiac catheterization done at [facility] which did not show any significant obstructive CAD. -management of COVID-19 pneumonia as per primary team -supplemental oxygen (2) Acute respiratory failure with hypoxia: Code(s): J96.01 - Acute respiratory failure with hypoxia Status: Acute Assessment and Plan: Management as per primary team (3) Elevated troponin: Code(s): R77.8 - Other specified abnormalities of plasma proteins Status: Acute Assessment and Plan: Non ACS related in the setting of infection. (4) CHF exacerbation: Qualifiers: Heart failure type: unspecified Qualified Code(s): I50.9 - Heart failure, unspecified Code(s): I50.9 - Heart failure, unspecified Status: Acute Assessment and Plan: Continue IV diuresis with furosemide. May switch to p.o. furosemide when volume status improves. Consider switching ARB to ARNI as an outpatient. May also add SGLT2 for patients CHF as an outpatient. (5) Mitral regurgitation: Code(s): I34.0 - Nonrheumatic mitral (valve) insufficiency Status: Acute Assessment and Plan: Patient reportedly has severe MR. Management of valvular heart disease as an outpatient. 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 History of Present Illness History of Present Illness Consult date/time: 06/27/21 10:47 DATE OF CONSULT: 06/27/2021 REASON FOR CONSULT: CHF exacerbation, elevated troponin REQUESTING PHYSICIAN:Shasha Marlow PA-C CHIEF COMPLAINT: Cough, shortness of breath HPI: 76-year-old female with CHF with mildly reduced ejection fraction, severe mitral regurgitation, mild aortic stenosis, hypertension, varicose veins, type 2 diabetes mellitus, dyslipidemia, obstructive sleep apnea, restless leg syndrome, GERD. Patient was admitted to [facility] on 06/24/2021 with complaints of cough and shortness of breath. Patient reported chest pain with cough. She denied palpitations, dizziness or syncope. Patient has chronic bilateral lower extremity swelling, left worse than right. Patient was found to be COVID positive. Patient has received remdesivir and IV steroids. She is currently in isolation and on supplemental oxygen. Cardiology was consulted due to mild troponin elevation. Patient follows up with Dr. Christie for cardiovascular care. She recently had cardiac catheterization done on 06/13/2021 at [facility] in the setting of severe MR and LV dysfunction. Coronary angiogram did not show any significant obstructive CAD. Echocardiogram from 05/29/2021 reportedly showed ejection fraction 40%, severe MR, mild aortic stenosis. EKG on my personal evaluation showed sinus tachycardia, chronic left bundle-branch block. Troponins are minimally elevated and essentially flat. ProBNP elevated at 3130. Chest x-ray at admission was unremarkable. Subsequent CT chest showed No pulmonary embolus; cardiomegaly with mild pulmonary edema, airspace opacities in the right upper lobe lung bases could reflect superimposed pneumonia, small left and moderate size right pleural effusions. Venous Doppler negative for DVT. Reason For Visit: COVID-pneumonia, Acute Respiratory Failure w/hypox Review of Systems
--- NOTE | 2021-06-27 11:31 | PM.IMPN ---
Progress Note: A&P Assessment and Plan (1) COVID-19: Code(s): U07.1 - COVID-19 Status: Acute Assessment and Plan: Associated with acute hypoxemic respiratory failure We will continue with daily dosage of remdesivir and continue to monitor to see if longer than 5 days is needed. Patient also received dexamethasone which we will continue with daily doses.We will attempt to titrate oxygen to keep saturations Between 88 to 92%. (2) Elevated troponin: Code(s): R77.8 - Other specified abnormalities of plasma proteins Status: Acute Assessment and Plan: Patient does have mild elevation of troponin of 0.408 and second troponin 0.498.We will continue to trend troponins. Have consulted cardiology and do appreciate further recommendations. Patient did have an echo Doppler performed as well as a left heart cath performed recently, although we do not have a copy of the left heart cath. Patient's mild elevation of troponin is most likely secondary to hypoxia with possible congestive heart failure.Patient does have effusions noted on CAT scan so we will gently diurese patient. (3) Essential hypertension: Code(s): I10 - Essential (primary) hypertension Status: Acute Assessment and Plan: Resume home medication (4) Pleural effusion: Code(s): J90 - Pleural effusion, not elsewhere classified Status: Acute Assessment and Plan: Patient does have moderate pleural effusion noted to the right lung field and small pleural effusion noted to the left lung field. Will place patient on Lasix Cardiology has been consulted and appreciate further recommendations. Subjective Date/time seen: 06/27/21 11:31 Interval history: 76 years old female with past medical history of COPD hypertension presented to the hospital with shortness of breath associated with hypoxia was found to have COVID-19 pneumonia probably associated with acute and of chronic CHF exacerbation Patient feels weak short of breath Patient denies fever headache chest pain I am seeing the patient for shortness of breath Exam Narrative: Alert Chest bilateral wheezing crackles Abdomen nontender nondistended CVS S1 + S2 Positive Lower extremity edema Objective Data Vital Signs Vital Signs: Vital Signs - 24 hr 06/26/21 11:45 06/26/21 12:00 06/26/21 12:30 Temperature Pulse Rate 126 H 100 103 H Respiratory Rate 22 H 21 H 20 Blood Pressure Pulse Oximetry 06/26/21 12:45 06/26/21 13:00 06/26/21 13:16 Temperature Pulse Rate 105 H 106 H 97 Respiratory Rate 17 18 10 L Blood Pressure 142/65 H Pulse Oximetry 94 06/26/21 14:28 06/26/21 14:30 06/26/21 14:32 Temperature Pulse Rate 93 92 Respiratory Rate 17 14 Blood Pressure 145/71 H 139/74 Pulse Oximetry 95 96 97 06/26/21 14:46 06/26/21 15:01 06/26/21 17:40 Temperature Pulse Rate 101 H 98 88 Respiratory Rate 14 13 Blood Pressure 130/61 125/79 Pulse Oximetry 93 95 06/26/21 17:50 06/26/21 18:00 06/26/21 18:15 Temperature Pulse Rate 89 92 90 Respiratory Rate 20 20 Blood Pressure 138/70 Pulse Oximetry 96 92 06/26/21 19:58 06/26/21 20:00 06/26/21 21:11 Temperature 97.8 F Pulse Rate 84 88 86 Respiratory Rate 20 18 Blood Pressure 140/70 Pulse Oximetry 94 94 96 06/26/21 22:00 06/26/21 22:30 06/27/21 00:00 Temperature 98.4 F Pulse Rate 92 89 82 Respiratory Rate 15 20 Blood Pressure 132/66 Pulse Oximetry 97 92 06/27/21 02:00 06/27/21 02:01 06/27/21 02:28 Temperature Pulse Rate 72 73 71 Respiratory Rate 18 Blood Pressure Pulse Oximetry 90 92 06/27/21 04:00 06/27/21 05:38 06/27/21 06:00 Temperature 98.3 F Pulse Rate 102 H 81 Respiratory Rate 20 Blood Pressure 129/62 Pulse Oximetry 92 95 06/27/21 06:06 06/27/21 08:02 06/27/21 08:10 Temperature 98.1 F Pulse Rate 80 87 Respiratory Rate 20 20 Blood Pressure 122/80 122/80 Pulse Oximetry 98 95 95
[2021-06-27 12:01] LABS: Glucose Point of Care 174 mg/dl (65-105)
[2021-06-27 12:14] LABS: Basophils Percent Auto 0.2 % (0.2-1.2); Hematocrit 39.5 % (37.0-47.0); Hemoglobin 12.5 g/dL (12.0-15.0); Immature Granulocyte Absolute 0.05 K/mm3 (0.00-0.031); Immature Granulocyte Percent A 0.6 % (0-0.5); Lymphocytes Absolute Auto 1.29 K/mm3 (0.9-3.2); Lymphocytes Percent Auto 15.2 % (18.3-44.2); Mean Corpuscular HGB Conc 31.6 g/dl (32-36); Mean Corpuscular Hemoglobin 26.3 pg (26-34); Mean Platelet Volume 10.8 fl (7.4-10.4); Monocytes Absolute Auto 0.5 K/mm3 (0.1-0.6); Neutrophils Absolute Auto 6.6 K/mm3 (1.3-6.7); Platelet Count Result 294 k/mm3 (150-375); Red Blood Count 4.76 M/mm3 (4.2-5.4); Red Cell Distribution Width 15.7 % (11.5-14.5); White Blood Count 8.5 K/mm3 (4.5-10.0)
[2021-06-27 12:35] LABS: CRP 4.6 mg/dL (<1.0)
[2021-06-27] MEDS: UMECLIDINIUM BROMIDE 62.5 MCG ELLIPTA 1 PUFF INHALATION (14:08)
[2021-06-27 16:28] LABS: Glucose Point of Care 180 mg/dl (65-105)
[2021-06-27 20:30] LABS: Glucose Point of Care 166 mg/dl (65-105)
[2021-06-27] MEDS: PRAMIPEXOLE 0.25 MG TABLET 0.75 MG PO (20:32)
[2021-06-27] MEDS: SIMVASTATIN 20 MG TABLET PO (20:32)
[2021-06-27] MEDS: ASPIRIN 81 MG ENTERIC TABLET PO (20:32)
[2021-06-28] VITALS (9 sets, daily range): BP systolic 124–130; BP diastolic 57–77; PULSE 61–89; RESP 12–21; TEMP 35.6–37; O2SAT 95–97
[2021-06-28 05:21] LABS: Basophils Percent Auto 0.1 % (0.2-1.2); Hematocrit 39.5 % (37.0-47.0); Hemoglobin 12.3 g/dL (12.0-15.0); Immature Granulocyte Absolute 0.06 K/mm3 (0.00-0.031); Immature Granulocyte Percent A 0.5 % (0-0.5); Lymphocytes Absolute Auto 2.37 K/mm3 (0.9-3.2); Lymphocytes Percent Auto 19.9 % (18.3-44.2); Mean Corpuscular HGB Conc 31.1 g/dl (32-36); Mean Corpuscular Hemoglobin 26.2 pg (26-34); Mean Corpuscular Volume 84.2 fl (80-100); Mean Platelet Volume 10.8 fl (7.4-10.4); Monocytes Absolute Auto 0.7 K/mm3 (0.1-0.6); Monocytes Percent Auto 6.1 % (2.6-8.5); Neutrophils Absolute Auto 8.7 K/mm3 (1.3-6.7); Neutrophils Percent Auto 73.4 % (45.5-73.1); Platelet Count Result 292 k/mm3 (150-375); Red Blood Count 4.69 M/mm3 (4.2-5.4); Red Cell Distribution Width 15.9 % (11.5-14.5); White Blood Count 11.9 K/mm3 (4.5-10.0)
[2021-06-28 05:29] LABS: INR 1.2; Prothrombin Time 14.2 Seconds (11.1-14.7)
[2021-06-28 05:34] LABS: Alanine Aminotransferase 29 U/L (4-35); Albumin Level 4.4 g/dL (3.5-5.1); Alkaline Phosphatase 58 U/L (38-126); Anion Gap 11 mmol/L (8-16); Aspartate Amino Transferase 41 U/L (14-36); Bilirubin,Total 0.6 mg/dL (0.2-1.3); Blood Urea Nitrogen 24 mg/dL (7-17); CRP 2.6 mg/dL (<1.0); Calcium 8.6 mg/dL (8.4-10.2); Carbon Dioxide 27 mmol/L (22-30); Chloride 97 mmol/L (98-107); Estimated CRCL calculation 60 ml/min; Estimated Glomerular Filt Rate > 60; Glucose 139 mg/dL (65-110); Potassium 3.7 mmol/L (3.4-5.0); Sodium 135 mmol/L (137-145)
[2021-06-28 07:58] LABS: Glucose Point of Care 133 mg/dl (65-105)
[2021-06-28] MEDS: CHOLECALCIFEROL 1,000 UNITS TABLET 1000 UNITS PO (09:15)
[2021-06-28] MEDS: PANTOPRAZOLE 40 MG TABLET PO ×2 (09:15→20:28)
[2021-06-28] MEDS: atenoloL 50 MG TABLET PO (09:15)
[2021-06-28] MEDS: MULTIVITAMINS THERAPEUTIC TAB (*BKC) 1 TABLET PO (09:16)
[2021-06-28] MEDS: amLODIPine BESYLATE 5 MG TABLET 10 MG PO (09:16)
[2021-06-28] MEDS: CALCIUM CARBONATE (OSCAL) 500 MG TABLET PO (09:16)
[2021-06-28] MEDS: CITALOPRAM HYDROBROMIDE 10 MG TABLET 30 MG PO (09:16)
[2021-06-28] MEDS: FUROSEMIDE INJ 40 MG/4 ML VIAL IV PUSH ×2 (09:17→17:14)
[2021-06-28] MEDS: ENOXAPARIN 40 MG/0.4 ML SYRINGE SUB-Q (09:17)
[2021-06-28] MEDS: UMECLIDINIUM BROMIDE 62.5 MCG ELLIPTA 1 PUFF INHALATION (09:41)
[2021-06-28] MEDS: ALBUTEROL SULFATE (*SP) INHALER 2 PUFF INHALATION ×3 (09:41→21:09)
[2021-06-28] MEDS: REMDESIVIR 100 MG/NS 250 ML 100 MG/250 ML BAG 250 MG IVPB (10:35)
--- NOTE | 2021-06-28 11:09 | PM.IMPN ---
Progress Note: A&P Assessment and Plan (1) COVID-19: Code(s): U07.1 - COVID-19 Status: Acute Assessment and Plan: Associated with acute hypoxemic respiratory failure We will continue with daily dosage of remdesivir and continue to monitor to see if longer than 5 days is needed. Patient also received dexamethasone which we will continue with daily doses.We will attempt to titrate oxygen to keep saturations Between 88 to 92%. better (2) Elevated troponin: Code(s): R77.8 - Other specified abnormalities of plasma proteins Status: Acute Assessment and Plan: Patient does have mild elevation of troponin of 0.408 and second troponin 0.498.We will continue to trend troponins. Have consulted cardiology and do appreciate further recommendations. Patient did have an echo Doppler performed as well as a left heart cath performed recently, although we do not have a copy of the left heart cath. Patient's mild elevation of troponin is most likely secondary to hypoxia with possible congestive heart failure.Patient does have effusions noted on CAT scan so we will gently diurese patient. (3) Essential hypertension: Code(s): I10 - Essential (primary) hypertension Status: Acute Assessment and Plan: Resume home medication (4) Pleural effusion: Code(s): J90 - Pleural effusion, not elsewhere classified Status: Acute Assessment and Plan: Patient does have moderate pleural effusion noted to the right lung field and small pleural effusion noted to the left lung field. Will place patient on Lasix Cardiology has been consulted and appreciate further recommendations. Subjective Date/time seen: 06/28/21 11:09 Interval history: 76 years old female with past medical history of COPD hypertension presented to the hospital with shortness of breath associated with hypoxia was found to have COVID-19 pneumonia probably associated with acute and of chronic CHF exacerbation Patient feels weak short of breath better Patient denies fever headache chest pain I am seeing the patient for shortness of breath Exam Narrative: Alert Chest bilateral wheezing crackles Abdomen nontender nondistended CVS S1 + S2 Positive Lower extremity edema Objective Data Vital Signs Vital Signs: Vital Signs - 24 hr 06/27/21 12:00 06/27/21 12:04 06/27/21 14:00 Temperature 96.9 F L Pulse Rate 76 72 93 Respiratory Rate 22 H Blood Pressure 118/54 L Pulse Oximetry 99 06/27/21 16:00 06/27/21 16:40 06/27/21 19:57 Temperature 97.4 F L 97.6 F Pulse Rate 82 84 67 Respiratory Rate 20 20 Blood Pressure 135/56 L 126/66 Pulse Oximetry 99 97 06/27/21 20:00 06/27/21 21:21 06/27/21 23:24 Temperature 97.9 F Pulse Rate 71 Respiratory Rate 20 Blood Pressure 123/63 Pulse Oximetry 98 95 96 06/28/21 08:00 06/28/21 09:42 Temperature 96.9 F L Pulse Rate 71 89 Respiratory Rate 21 H 12 Blood Pressure 124/67 Pulse Oximetry 96 Intake/Output Intake/Output: Intake & Output 06/25/21 06/26/21 06/27/21 06/28/21 23:59 23:59 23:59 23:59 Intake Total 550 1590 940 Output Total 900 2700 1000 Balance -350 -1110 -60 Meds/Results Medications: Active Medications Generic Name Dose Route Start Last Admin Trade Name Freq PRN Reason Stop Dose Admin Albuterol 2 puff 06/26/21 20:00 06/28/21 09:41 Albuterol Sulfate (*Sp) Inhaler INHALATION 2 puff Q6HRT KIMMY Administration Amlodipine Besylate 10 mg 06/27/21 09:00 06/28/21 09:16 Amlodipine Besylate 5 Mg Tablet PO 10 mg DAILY KIMMY Administration Aspirin 81 mg 06/26/21 21:00 06/27/21 20:32 Aspirin 81 Mg Enteric Tablet PO 81 mg HS KIMMY Administration Atenolol 50 mg 06/27/21 09:00 06/28/21 09:15 Atenolol 50 Mg Tablet PO 50 mg DAILY KIMMY Administration Benzonatate 100 mg 06/26/21 19:15 Benzonatate 100 Mg Capsule PO TID PRN Cough Calcium Carbonate 500 mg 06/27/21 09:00 0
[2021-06-28 12:05] LABS: Glucose Point of Care 164 mg/dl (65-105)
[2021-06-28 16:25] LABS: Glucose Point of Care 180 mg/dl (65-105)
--- NOTE | 2021-06-28 17:25 | PC.NURSE ---
This patient, Scarlett Gómez, was received from ICU 209-01 on 06/28/21 at 1725. Patient/family oriented to unit policies and routines
--- NOTE | 2021-06-28 17:47 | PC.NURSE ---
This patient, Scarlett Gómez, was transferred to [facility] on 06/28/21 at 1747. Personal belongings sent with patient. Appropriate documentation sent with patient.
[2021-06-28] MEDS: SIMVASTATIN 20 MG TABLET PO (20:28)
[2021-06-28] MEDS: ASPIRIN 81 MG ENTERIC TABLET PO (20:28)
[2021-06-28] MEDS: PRAMIPEXOLE 0.25 MG TABLET 0.75 MG PO (20:28)
[2021-06-28 22:20] LABS: Glucose Point of Care 179 mg/dl (65-105)
[2021-06-29] VITALS (12 sets, daily range): BP systolic 120–148; BP diastolic 57–68; PULSE 59–89; RESP 12–20; TEMP 36.5–37.4; O2SAT 95–98
[2021-06-29] MEDS: ALBUTEROL SULFATE (*SP) INHALER 2 PUFF INHALATION ×4 (02:03→20:15)
[2021-06-29 06:37] LABS: Basophils Percent Auto 0.1 % (0.2-1.2); Hematocrit 37.2 % (37.0-47.0); Hemoglobin 11.5 g/dL (12.0-15.0); INR 1.1; Immature Granulocyte Absolute 0.05 K/mm3 (0.00-0.031); Immature Granulocyte Percent A 0.5 % (0-0.5); Lymphocytes Percent Auto 23.4 % (18.3-44.2); Mean Corpuscular HGB Conc 30.9 g/dl (32-36); Mean Platelet Volume 10.7 fl (7.4-10.4); Monocytes Absolute Auto 0.8 K/mm3 (0.1-0.6); Neutrophils Absolute Auto 7.4 K/mm3 (1.3-6.7); Platelet Count Result 260 k/mm3 (150-375); Prothrombin Time 14.1 Seconds (11.1-14.7); Red Blood Count 4.43 M/mm3 (4.2-5.4); Red Cell Distribution Width 15.6 % (11.5-14.5); White Blood Count 10.7 K/mm3 (4.5-10.0)
[2021-06-29 06:55] LABS: Alanine Aminotransferase 25 U/L (4-35); Alkaline Phosphatase 56 U/L (38-126); Anion Gap 9 mmol/L (8-16); Aspartate Amino Transferase 39 U/L (14-36); Bilirubin,Total 0.5 mg/dL (0.2-1.3); Blood Urea Nitrogen 30 mg/dL (7-17); CRP 1.4 mg/dL (<1.0); Calcium 8.1 mg/dL (8.4-10.2); Carbon Dioxide 30 mmol/L (22-30); Chloride 96 mmol/L (98-107); Estimated CRCL calculation 60 ml/min; Estimated Glomerular Filt Rate > 60; Glucose 128 mg/dL (65-110); Potassium 3.5 mmol/L (3.4-5.0); Sodium 135 mmol/L (137-145)
[2021-06-29 07:44] LABS: Glucose Point of Care 130 mg/dl (65-105)
[2021-06-29] MEDS: CITALOPRAM HYDROBROMIDE 10 MG TABLET 30 MG PO (08:26)
[2021-06-29] MEDS: PANTOPRAZOLE 40 MG TABLET PO ×2 (08:26→20:15)
[2021-06-29] MEDS: ENOXAPARIN 40 MG/0.4 ML SYRINGE SUB-Q (08:26)
[2021-06-29] MEDS: MULTIVITAMINS THERAPEUTIC TAB (*BKC) 1 TABLET PO (08:26)
[2021-06-29] MEDS: CALCIUM CARBONATE (OSCAL) 500 MG TABLET PO (08:27)
[2021-06-29] MEDS: CHOLECALCIFEROL 1,000 UNITS TABLET 1000 UNITS PO (08:27)
[2021-06-29] MEDS: FUROSEMIDE INJ 40 MG/4 ML VIAL IV PUSH ×2 (08:27→16:42)
[2021-06-29] MEDS: atenoloL 50 MG TABLET PO (08:27)
[2021-06-29] MEDS: amLODIPine BESYLATE 5 MG TABLET 10 MG PO (08:28)
[2021-06-29] MEDS: FLUTICASONE PROPIONATE 0.05% NA SPR 16 GM BTL (*BKC) 2 SPRAY NASAL (08:29)
[2021-06-29] MEDS: UMECLIDINIUM BROMIDE 62.5 MCG ELLIPTA 1 PUFF INHALATION (09:35)
--- NOTE | 2021-06-29 10:31 | PM.IMPN ---
Progress Note: A&P Assessment and Plan (1) COVID-19: Code(s): U07.1 - COVID-19 Status: Acute Assessment and Plan: Associated with acute hypoxemic respiratory failure We will continue with daily remdesivir for total of 5 days. Patient also received dexamethasone which we will continue with daily doses.We will attempt to titrate oxygen to keep saturations Between 88 to 92%. better (2) Elevated troponin: Code(s): R77.8 - Other specified abnormalities of plasma proteins Status: Acute Assessment and Plan: Patient does have mild elevation of troponin of 0.408 and second troponin 0.498.We will continue to trend troponins. Have consulted cardiology and do appreciate further recommendations. Patient did have an echo Doppler performed as well as a left heart cath performed recently, although we do not have a copy of the left heart cath. Patient's mild elevation of troponin is most likely secondary to hypoxia with possible congestive heart failure.Patient does have effusions noted on CAT scan so we will gently diurese patient. (3) Essential hypertension: Code(s): I10 - Essential (primary) hypertension Status: Acute Assessment and Plan: Resume home medication (4) Pleural effusion: Code(s): J90 - Pleural effusion, not elsewhere classified Status: Acute Assessment and Plan: Patient does have moderate pleural effusion noted to the right lung field and small pleural effusion noted to the left lung field. Will place patient on Lasix Cardiology has been consulted and appreciate further recommendations. (5) CHF exacerbation: Qualifiers: Heart failure type: unspecified Qualified Code(s): I50.9 - Heart failure, unspecified Code(s): I50.9 - Heart failure, unspecified Status: Acute Assessment and Plan: Acute on top of chronic systolic CHF exacerbation treated with IV diuresis Anticipate discharge home in a.m. with home O2 eval Subjective Date/time seen: 06/29/21 10:31 Interval history: 76 years old female with past medical history of COPD hypertension presented to the hospital with shortness of breath associated with hypoxia was found to have COVID-19 pneumonia probably associated with acute and of chronic CHF exacerbation shortness of breath has improved last dose of remdesivir on 06/30/2021 Patient feels weak short of breath better Patient denies fever headache chest pain I am seeing the patient for shortness of breath Exam Narrative: Alert Chest bilateral wheezing crackles Abdomen nontender nondistended CVS S1 + S2 Positive Lower extremity edema Objective Data Vital Signs Vital Signs: Vital Signs - 24 hr 06/28/21 15:03 06/28/21 16:27 06/28/21 17:30 Temperature 96.1 F L 97.8 F Pulse Rate 68 61 69 Respiratory Rate 12 20 16 Blood Pressure 128/61 127/77 Pulse Oximetry 96 96 06/28/21 20:00 06/28/21 21:09 06/28/21 23:25 Temperature 97.8 F Pulse Rate 68 Respiratory Rate 18 Blood Pressure 129/71 Pulse Oximetry 95 96 97 06/28/21 23:32 06/29/21 02:01 06/29/21 04:00 Temperature 98.6 F 99.4 F Pulse Rate 62 67 Respiratory Rate 20 18 Blood Pressure 130/57 L 125/66 Pulse Oximetry 96 97 95 06/29/21 08:00 06/29/21 08:27 06/29/21 09:35 Temperature 97.7 F Pulse Rate 64 64 89 Respiratory Rate 18 12 Blood Pressure 126/64 Pulse Oximetry 98 Intake/Output Intake/Output: Intake & Output 06/26/21 06/27/21 06/28/21 06/29/21 23:59 23:59 23:59 23:59 Intake Total 550 1590 1860 250 Output Total 900 2700 1600 Balance -350 -1110 260 250 Meds/Results Medications: Active Medications Generic Name Dose Route Start Last Admin Trade Name Freq PRN Reason Stop Dose Admin Albuterol 2 puff 06/26/21 20:00 06/29/21 09:34 Albuterol Sulfate (*Sp) Inhaler INHALATION 2 puff Q6HRT KIMMY Administration Amlodipine Besylate 10 mg 06/27/21 09:00 06/29/21 08:28 Amlodipine Besylate
[2021-06-29] MEDS: POTASSIUM CHLORIDE 20 MEQ TABLET 40 MEQ PO (10:50)
[2021-06-29] MEDS: REMDESIVIR 100 MG/NS 250 ML 100 MG/250 ML BAG 250 MG IVPB (10:50)
[2021-06-29 11:41] LABS: Glucose Point of Care 187 mg/dl (65-105)
--- NOTE | 2021-06-29 15:42 | PCCCNOTE ---
On 06/29/21, the student, [Adriana Boyer], provided care and completed [facility] documentation on this patient. I have reviewed the student's documentation and agree with the findings.
[2021-06-29 16:44] LABS: Glucose Point of Care 144 mg/dl (65-105)
[2021-06-29] MEDS: SIMVASTATIN 20 MG TABLET PO (20:15)
[2021-06-29] MEDS: ASPIRIN 81 MG ENTERIC TABLET PO (20:15)
[2021-06-29] MEDS: PRAMIPEXOLE 0.25 MG TABLET 0.75 MG PO (20:15)
[2021-06-29 21:01] LABS: Glucose Point of Care 176 mg/dl (65-105)
[2021-06-30] MEDS: ALBUTEROL SULFATE (*SP) INHALER 2 PUFF INHALATION ×2 (01:50→08:18)
[2021-06-30 01:56] VITALS: PULSE 88; RESP 18; O2SAT 97
[2021-06-30 03:54] VITALS: BP 139/59; PULSE 60; RESP 18; TEMP 36.6; O2SAT 99
[2021-06-30 06:39] LABS: Basophils Percent Auto 0.1 % (0.2-1.2); Eosinophils Percent Auto 0.1 % (0-4.4); Hematocrit 37.6 % (37.0-47.0); Hemoglobin 11.9 g/dL (12.0-15.0); Immature Granulocyte Absolute 0.05 K/mm3 (0.00-0.031); Immature Granulocyte Percent A 0.5 % (0-0.5); Lymphocytes Percent Auto 25.3 % (18.3-44.2); Mean Corpuscular HGB Conc 31.6 g/dl (32-36); Mean Corpuscular Hemoglobin 26.3 pg (26-34); Mean Corpuscular Volume 83.2 fl (80-100); Mean Platelet Volume 10.8 fl (7.4-10.4); Monocytes Absolute Auto 0.8 K/mm3 (0.1-0.6); Neutrophils Absolute Auto 6.3 K/mm3 (1.3-6.7); Platelet Count Result 261 k/mm3 (150-375); Red Blood Count 4.52 M/mm3 (4.2-5.4); Red Cell Distribution Width 15.3 % (11.5-14.5); White Blood Count 9.5 K/mm3 (4.5-10.0)
[2021-06-30 06:57] LABS: Alanine Aminotransferase 26 U/L (4-35); Albumin Level 4.1 g/dL (3.5-5.1); Alkaline Phosphatase 54 U/L (38-126); Anion Gap 8 mmol/L (8-16); Aspartate Amino Transferase 44 U/L (14-36); Bilirubin,Total 0.6 mg/dL (0.2-1.3); Blood Urea Nitrogen 30 mg/dL (7-17); CRP 0.8 mg/dL (<1.0); Calcium 8.2 mg/dL (8.4-10.2); Carbon Dioxide 30 mmol/L (22-30); Chloride 95 mmol/L (98-107); Estimated CRCL calculation 59 ml/min; Estimated Glomerular Filt Rate > 60; Glucose 119 mg/dL (65-110); Potassium 3.6 mmol/L (3.4-5.0); Sodium 133 mmol/L (137-145)
[2021-06-30 07:00] LABS: INR 1.2; Prothrombin Time 14.5 Seconds (11.1-14.7)
[2021-06-30 08:00] VITALS: BP 134/69; PULSE 7; RESP 22; TEMP 37; O2SAT 98
[2021-06-30] MEDS: REMDESIVIR 100 MG/NS 250 ML 100 MG/250 ML BAG 250 MG IVPB (08:01)
[2021-06-30] MEDS: CITALOPRAM HYDROBROMIDE 10 MG TABLET 30 MG PO (08:03)
[2021-06-30] MEDS: PANTOPRAZOLE 40 MG TABLET PO (08:03)
[2021-06-30] MEDS: ENOXAPARIN 40 MG/0.4 ML SYRINGE SUB-Q (08:03)
[2021-06-30] MEDS: CHOLECALCIFEROL 1,000 UNITS TABLET 1000 UNITS PO (08:03)
[2021-06-30 08:04] VITALS: PULSE 60
[2021-06-30] MEDS: amLODIPine BESYLATE 5 MG TABLET 10 MG PO (08:04)
[2021-06-30] MEDS: atenoloL 50 MG TABLET PO (08:04)
[2021-06-30] MEDS: MULTIVITAMINS THERAPEUTIC TAB (*BKC) 1 TABLET PO (08:04)
[2021-06-30] MEDS: CALCIUM CARBONATE (OSCAL) 500 MG TABLET PO (08:04)
[2021-06-30] MEDS: FUROSEMIDE 40 MG TABLET PO (08:15)
[2021-06-30] MEDS: UMECLIDINIUM BROMIDE 62.5 MCG ELLIPTA 1 PUFF INHALATION (08:18)
[2021-06-30 08:25] LABS: Glucose Point of Care 105 mg/dl (65-105)
--- NOTE | 2021-06-30 09:32 | PM.DS ---
DS: Admitting Diagnosis Discharge Date 06/30/2021 Admitting Diagnosis COVID-19 pneumonia DS: Discharge Diagnosis Discharge Diagnosis (1) COVID-19: Code(s): U07.1 - COVID-19 Status: Acute Assessment and Plan: Associated with acute hypoxemic respiratory failure We will continue with daily remdesivir for total of 5 days. Dexamethasone for 5 days respiratory failure has resolved. better (2) Elevated troponin: Code(s): R77.8 - Other specified abnormalities of plasma proteins Status: Acute Assessment and Plan: Cardiology recommendation appreciated most likely NSTEMI type 2 secondary to demand ischemia secondary to respiratory failure secondary to COVID-19 follow-up with cardiology as outpatient (3) Essential hypertension: Code(s): I10 - Essential (primary) hypertension Status: Acute Assessment and Plan: Resume home medication (4) Pleural effusion: Code(s): J90 - Pleural effusion, not elsewhere classified Status: Acute Assessment and Plan: Patient does have moderate pleural effusion noted to the right lung field and small pleural effusion noted to the left lung field. Will place patient on Lasix Cardiology has been consulted repeat chest x-ray in 4 weeks. (5) CHF exacerbation: Qualifiers: Heart failure type: unspecified Qualified Code(s): I50.9 - Heart failure, unspecified Code(s): I50.9 - Heart failure, unspecified Status: Acute Assessment and Plan: Acute on top of chronic systolic CHF exacerbation treated with IV diuresis patient will be discharged on oral diuretics DS: Summary Hospital Course Hospital Course: 76 years old female with past medical history of CHF severe mitral valve regurgitation hypertension diabetes mellitus presented to the hospital with shortness of breath associated with hypoxia was found to have COVID-19 pneumonia pulmonary edema acute on top of chronic systolic CHF exacerbation associated with acute hypoxemic respiratory failure patient received 5 days course of remdesivir and the dexamethasone also was given IV diuresis her condition improved patient to follow-up with cardiology and PCP as outpatient. Time Spent with Patient Time attestation: Total time spent providing and/or coordinating discharge services: 35 Exam Narrative: Alert Chest no wheeze crackles Abdomen nontender nondistended CVS S1 + S2 Lower extremity edema DS: Data Data Completed and Pending Labs on day of discharge: Labs from last 24 hours 06/30/21 06/30/21 06/30/21 08:09 06:33 06:33 WBC 9.5 RBC 4.52 Hgb 11.9 L Hct 37.6 MCV 83.2 MCH 26.3 MCHC 31.6 L RDW 15.3 H Plt Count 261 MPV 10.8 H Immature Gran % (Auto) 0.5 Neut % (Auto) 66.0 Lymph % (Auto) 25.3 [place] % (Auto) 8.0 Eos % (Auto) 0.1 Baso % (Auto) 0.1 L Lymph # (Auto) 2.40 [place] # (Auto) 0.8 H Eos # (Auto) 0.0 Baso # (Auto) 0.0 Abs Immat Gran (auto) 0.05 H Absolute Neuts (auto) 6.3 Absolute Nucleated RBC 0.0 Nucleated RBC % 0.0 PT INR Sodium 133 L Potassium 3.6 Chloride 95 L Carbon Dioxide 30 Anion Gap 8 BUN 30 H Creatinine 0.80 Estim Creat Clear Calc 59 Estimated GFR > 60 Glucose 119 H POC Capillary Glucose 105 Calcium 8.2 L Ferritin Total Bilirubin 0.6 AST 44 H ALT 26 Alkaline Phosphatase 54 C-Reactive Protein 0.8 Total Protein 7.0 Albumin 4.1 06/30/21 06/30/21 06/29/21 06:33 06:33 20:14 WBC RBC Hgb Hct MCV MCH MCHC RDW Plt Count MPV Immature Gran % (Auto) Neut % (Auto) Lymph % (Auto) [place] % (Auto) Eos % (Auto) Baso % (Auto) Lymph # (Auto) [place] # (Auto) Eos # (Auto) Baso # (Auto) Abs Immat Gran (auto) Absolute Neuts (auto) Absolute Nucleated RBC Nucleated RBC % PT 14.5 INR 1.2 Sodium Pot
--- NOTE | 2021-06-30 14:55 | PCCCNOTE ---
On 06/30/21, the student, [Shahnaz Boyer], provided care and completed [facility] documentation on this patient. I have reviewed the student's documentation and agree with the findings.
== END 2021-06-30 11:31 | disposition home or self-care (01) | DRG 177 ==
LOC: ANHED 12:05 → ANHIMU 15:54 → ANH3MEDSUR 06-29 10:34 → ANHIMU 07-03 15:01
PROVIDERS: Nurse Practitioner Adult Health; Physician Assistant; Admitting Provider Family Medicine; Emergency Provider Emergency Medicine; PCP Family Medicine; Visit Provider Internal Medicine
DX: U07.1 COVID-19 (principal); J96.01 Acute respiratory failure with hypoxia; J12.82 Pneumonia due to coronavirus disease 2019; I21.A1 Myocardial infarction type 2; I50.23 Acute on chronic systolic (congestive) heart failure; J90 Pleural effusion, not elsewhere classified; R77.8 Other specified abnormalities of plasma proteins; F41.9 Anxiety disorder, unspecified; E78.5 Hyperlipidemia, unspecified; E55.9 Vitamin D deficiency, unspecified; K21.9 Gastro-esophageal reflux disease without esophagitis; E11.42 Type 2 diabetes mellitus with diabetic polyneuropathy; I11.0 Hypertensive heart disease with heart failure; I34.0 Nonrheumatic mitral (valve) insufficiency; G47.33 Obstructive sleep apnea (adult) (pediatric); Z82.3 Family history of stroke; Z82.49 Family history of ischemic heart disease and other diseases of the circulatory system; Z79.899 Other long term (current) drug therapy; Z79.82 Long term (current) use of aspirin
CPT/HCPCS: 36415; 36600; 71045; 71046; 71275; 80053; 82728; 82805; 82948; 83605; 83615; 83735; 83880; 84145; 84484; 85025; 85380; 85610; 85730; 86140; 87040; 87502; 93005; 93970; 94640; 96365; 96366; 96372; 96375; 96376; 99284; 99291; A9270; C9803; G0378; J0248; J1100; J1650; J1940; Q9967; U0003; U0005

== ENCOUNTER 2021-09-09 20:03 | Emergency (ER) | payer MEDICARE, OTHER, SELFPAY ==
--- NOTE | ~2021-09-09 | XR_ITS ---
EXAM: XR tibia fibula LT 2V DATE: 09/09/2021 20:45 HISTORY: tenderness, fall, pain from knee and distal . COMPARISON: None available. FINDINGS: Normal mineralization. No fracture or dislocation. No lytic or blastic lesion. Joint degen erative changes in the knee. Plantar enthesopathy. Vascular calcifications. No erosion or periosteal change. Subcutaneous edema. IMPRESSION: No acute osseous finding in the left tibia or fibula. Reviewed, dictated and finalized at location [facility].
[2021-09-09 20:05] VITALS: BP 137/63; PULSE 102; RESP 18; TEMP 36.3; O2SAT 97
--- NOTE | 2021-09-09 20:28 | ED.LOWEXIN ---
HPI - Extremity Injury (Lower) General Chief Complaint: Extremity Injury, Lower Stated Complaint: LEFT LEG PAIN Time Seen by Provider: 09/09/21 20:16 History of Present Illness HPI Narrative: 76-year-old female with history of CHF here for evaluation of left lower extremity swelling and pain x 2 days. Patient states her left hip has been aching for the past several days without known trauma, states that she was walking outside earlier today when she accidentally stepped in a hole, and ever since then she has had pain in her entire left leg. States the pain in her hip is crampy and achy in nature, but the pain in her left lower leg is sharp and shooting. Denies numbness or tingling or paresthesias, denies back pain, saddle anesthesia, loss of bowel or bladder. Also notes that her left leg appears to be more swollen than usual, she does have a history of CHF but denies any shortness of breath, chest pain. Takes lasix, has had chronic leg swelling x 2 months. Related Data Home Medications Medication Instructions Recorded Confirmed albuterol sulfate 90 mcg/actuation 1 puff inhalation Q4H PRN Wheezing 06/26/21 06/26/21 aerosol inhaler (ProAir HFA) aspirin 81 mg tablet,delayed 81 mg PO HS 06/26/21 06/26/21 release benzonatate 100 mg capsule 100 mg PO TID PRN Cough 06/26/21 06/26/21 calcium carbonate 600 mg calcium 600 mg PO DAILY 06/26/21 06/26/21 (1,500 mg) tablet (Calcium) fluticasone propionate 50 2 spray intranasal DAILY PRN 06/26/21 06/26/21 mcg/actuation nasal congestion spray,suspension (Flonase Allergy Relief) pramipexole 0.75 mg tablet 0.75 mg PO HS 06/26/21 06/26/21 (Mirapex) simvastatin 20 mg tablet 20 mg PO HS 06/26/21 06/26/21 Allergies Allergy/AdvReac Type Severity Reaction Status Date / Time No Known Allergies Allergy Verified 09/09/21 20:26 Review of Systems Review of Systems: Gen: Denies fevers or chills Eyes: Denies eye pain or visual change ENT: Denies congestion Respiratory: Denies shortness of breath or cough CV: Denies chest pain or palpitations GI: Denies abdominal pain nausea, emesis or diarrhea denies burning, urgency, frequency or hematuria Musculoskeletal: Reports left leg pain and swelling Neuro: Denies numbness, tingling, weakness or focal weakness Skin: Denies rash Except as documented, all other systems reviewed and negative [facility] Past Medical History Medical History Anxiety Bilateral hip pain Carpal tunnel syndrome Dyslipidemia Gastroesophageal reflux disease Gout Hammer toe Hepatic steatosis HLD (hyperlipidemia) HTN (hypertension) IFG (impaired fasting glucose) Intraductal papillary mucinous neoplasia Left bundle branch block Metabolic syndrome Pancreatic cyst Primary osteoarthritis of left knee Primary osteoarthritis of right knee Right clavicle fracture RLS (restless legs syndrome) Sleep apnea Uses CPAP Type 2 diabetes mellitus with diabetic neuropathy, without long-term current use of insulin Vitamin D deficiency, unspecified Surgical History Surgical History H/O cataract extraction Bilateral eyes June 2020 H/O: hysterectomy History of orthopedic surgery Right toe surgery Hx of tonsillectomy Presence of right artificial knee joint Family History Family History Mother Cerebrovascular accident Father Family history of coronary artery disease Other Family history of arthritis Hypertension Social History Social History Smoking status: Never smoker Second hand tobacco smoke exposure: No Alcohol intake: never Substance use: never Substance use type: does not use Gender identity (if verbalized by the patient): Female Sexual Orientation (if Verbalized by the Patient): Straight or Heterosexual
[2021-09-09 20:57] LABS: Basophils Absolute Auto 0.1 K/mm3 (0.0-0.1); Basophils Percent Auto 0.7 % (0.2-1.2); Eosinophils Absolute Auto 0.2 K/mm3 (0-0.3); Eosinophils Percent Auto 2.3 % (0-4.4); Hematocrit 37.9 % (37.0-47.0); Hemoglobin 12.1 g/dL (12.0-15.0); Immature Granulocyte Absolute 0.02 K/mm3 (0.00-0.031); Immature Granulocyte Percent A 0.2 % (0-0.5); Lymphocytes Absolute Auto 2.26 K/mm3 (0.9-3.2); Lymphocytes Percent Auto 26.3 % (18.3-44.2); Mean Corpuscular HGB Conc 31.9 g/dl (32-36); Mean Corpuscular Hemoglobin 26.3 pg (26-34); Mean Corpuscular Volume 82.4 fl (80-100); Mean Platelet Volume 11.1 fl (7.4-10.4); Monocytes Absolute Auto 0.7 K/mm3 (0.1-0.6); Monocytes Percent Auto 8.6 % (2.6-8.5); Neutrophils Absolute Auto 5.3 K/mm3 (1.3-6.7); Neutrophils Percent Auto 61.9 % (45.5-73.1); Platelet Count Result 243 k/mm3 (150-375); Red Cell Distribution Width 15.5 % (11.5-14.5); White Blood Count 8.6 K/mm3 (4.5-10.0)
[2021-09-09 21:08] VITALS: PULSE 96; RESP 18; O2SAT 95
[2021-09-09 21:09] LABS: INR 1.1; Partial Thromboplastin Time 30.9 SECONDS (22.3-36.8); Prothrombin Time 13.6 Seconds (11.1-14.7)
[2021-09-09 21:16] LABS: D Dimer 0.65 ug/mL (<0.48)
[2021-09-09] MEDS: ACETAMINOPHEN 325 MG TABLET 650 MG PO (21:58)
[2021-09-09 22:20] VITALS: BP 112/52; PULSE 89; RESP 16; O2SAT 96
[2021-09-09] MEDS: ENOXAPARIN 40 MG/0.4 ML SYRINGE SUB-Q (22:41)
[2021-09-09] MEDS: ENOXAPARIN 100 MG/ML SYRINGE SUB-Q (22:41)
[2021-09-09 23:22] VITALS: PULSE 97; RESP 16; O2SAT 95
== END 2021-09-09 23:22 | disposition home or self-care (01) ==
PROVIDERS: Physician Assistant; Emergency Provider Emergency Medicine; PCP Family Medicine
DX: M79.605 Pain in left leg (principal); E78.5 Hyperlipidemia, unspecified; E11.40 Type 2 diabetes mellitus with diabetic neuropathy, unspecified; I11.0 Hypertensive heart disease with heart failure; I50.9 Heart failure, unspecified; K21.9 Gastro-esophageal reflux disease without esophagitis; M10.9 Gout, unspecified; M17.0 Bilateral primary osteoarthritis of knee; G25.81 Restless legs syndrome; G47.30 Sleep apnea, unspecified; E55.9 Vitamin D deficiency, unspecified; Z98.42 Cataract extraction status, left eye; Z98.41 Cataract extraction status, right eye; Z79.82 Long term (current) use of aspirin; Z79.84 Long term (current) use of oral hypoglycemic drugs
CPT/HCPCS: 36415; 73590; 85025; 85380; 85610; 85730; 96372; 99284; A9270; J1650

== ENCOUNTER 2021-09-10 07:32 | Outpatient (CLI) | payer MEDICARE, OTHER, SELFPAY ==
--- NOTE | ~2021-09-10 | US_ITS ---
US venous doppler [facility] DATE: 09/10/2021 08:59 INDICATION: Left lower extremity pain and swelling TECHNIQUE: Real-time and color flow imaging and Doppler analysis of the veins of the left lower extre mity COMPARISON: 06/26/2021 venous duplex examination of both lower extremities FINDINGS: The left greater saphenous vein is patent. There is spontaneous and phasic flow and normal augmentation and color flow signal and normal manpreet chelly of the deep veins of the left lower extremity. IMPRESSION: No evidence of deep venous thrombosis of left leg Reviewed, dictated and finalized at Location [facility]. Reviewed, dictated and finalized at location [facility].
== END 2021-09-10 07:33 | disposition home or self-care (01) ==
PROVIDERS: PCP Family Medicine; Visit Provider Emergency Medicine
DX: M79.605 Pain in left leg (principal)
CPT/HCPCS: 93971

== ENCOUNTER 2021-09-23 18:17 | Observation (INO) | payer MEDICARE, OTHER, SELFPAY ==
[2021-09-23] VITALS (22 sets, daily range): BP systolic 125–150; BP diastolic 68–105; PULSE 72–83; RESP 10–17; TEMP 36.1–36.4; O2SAT 93–99; BMI 34.2
--- NOTE | ~2021-09-23 | XR_ITS ---
EXAMINATION: XR chest 2V Exam Date/Time: 09/23/2021 18:50 CDT HISTORY: cp,htn Comparison: 06/26/2021. RESULT: Lines, tubes, and devices: None. Lungs and pleura: Clear. Cardiomediastinal silhouette: Stable. Other: No acute osseous or upper abdominal finding. IMPRESSION: No acute cardiopulmonary process. Reviewed, dictated and finalized at location K.
--- NOTE | ~2021-09-23 | CT_ITS ---
EXAMINATION: CTA chest PE protocol DATE: 09/25/2021 10:18 INDICATION: Chest pain. TECHNIQUE: Computed tomography angiography (CTA) of the chest was performed with 100 mL Omnipaque-350 intravenous contrast timed to evaluate the pulmonary arteries. Coronal maximum intensity projection 3D-reconstructions were created by the technologist. Automated exposure control and iterative reconst ruction technique were employed. The dose-length product was 448.48 mGy-cm. COMPARISON: Chest CT 06/26/2021 FINDINGS: The lungs demonstrate groundglass opacities and smooth septal thickening, consistent with m ild pulmonary edema and mild atelectasis. Calcified right lung nodules and calcified right hilar lymp h nodes are consistent with old granulomatous disease. No pleural effusion. Cardiomegaly is noted. Th ere is a small pericardial effusion. There are coronary artery calcifications. There is no pulmonary embolus. There is a small sliding hiatal hernia. Calcifications in the liver and spleen are consisten t with old granulomatous disease. There is mild thoracic spondylosis. IMPRESSION: 1. No pulmonary embolus. Sensitivity is mildly decreased by motion artifact. 2. Mild pulmonary edema. 3. Cardiomegaly. 4. Small pericardial effusion. 5. Small sliding hiatal hernia. Reviewed, dictated and finalized at location A.
--- NOTE | ~2021-09-23 | US_ITS ---
EXAMINATION: US venous doppler [facility] DATE: 09/25/2021 10:53 INDICATION: Chest pain. Positive d-dimer TECHNIQUE: Grayscale ultrasound images without and with compression and Doppler ultrasound images of the bilateral lower extremity veins were obtained. COMPARISON: None. FINDINGS: The visualized portions of right common femoral vein, profunda (deep) femoral vein, femoral vein, pop liteal vein, posterior tibial veins, peroneal veins, gastrocnemius vein and greater saphenous vein ou tflow are patent. The visualized portions of left common femoral vein, profunda femoral vein, femoral vein, popliteal v ein, posterior tibial veins, peroneal veins, gastrocnemius vein and greater saphenous vein outflow ar e patent. IMPRESSION: 1. No deep venous thrombosis in either lower limb. Reviewed, dictated and finalized at location A.
--- NOTE | 2021-09-23 18:25 | ECG_ITS ---
Measurements Intervals [place] Rate: 77 P: 38 AL: 188 QRS: -49 QRSD: 153 T: 55 QT: 437 QTc: 498 Interpretive Statements SINUS RHYTHM VENTRICULAR PREMATURE COMPLEX LEFT AXIS DEVIATION LEFT BUNDLE BRANCH BLOCK ABNORMAL ECG Electronically Signed On 09-24-2021 8:04:08 CDT by Tom Hernandez D.O.
[2021-09-23 18:54] LABS: Basophils Absolute Auto 0.1 K/mm3 (0.0-0.1); Basophils Percent Auto 0.5 % (0.2-1.2); Eosinophils Absolute Auto 0.2 K/mm3 (0-0.3); Eosinophils Percent Auto 1.7 % (0-4.4); Hematocrit 40.6 % (37.0-47.0); Hemoglobin 12.6 g/dL (12.0-15.0); Immature Granulocyte Absolute 0.02 K/mm3 (0.00-0.031); Immature Granulocyte Percent A 0.2 % (0-0.5); Lymphocytes Absolute Auto 2.91 K/mm3 (0.9-3.2); Lymphocytes Percent Auto 31.4 % (18.3-44.2); Mean Corpuscular Hemoglobin 26.1 pg (26-34); Mean Corpuscular Volume 84.2 fl (80-100); Mean Platelet Volume 11.1 fl (7.4-10.4); Monocytes Absolute Auto 0.7 K/mm3 (0.1-0.6); Neutrophils Absolute Auto 5.5 K/mm3 (1.3-6.7); Neutrophils Percent Auto 59.2 % (45.5-73.1); Platelet Count Result 226 k/mm3 (150-375); Red Blood Count 4.82 M/mm3 (4.2-5.4); Red Cell Distribution Width 15.6 % (11.5-14.5); White Blood Count 9.3 K/mm3 (4.5-10.0)
[2021-09-23 19:06] LABS: Alanine Aminotransferase 20 U/L (6-35); Albumin Level 4.4 g/dL (3.5-5.1); Alkaline Phosphatase 90 U/L (38-126); Anion Gap 13 mmol/L (8-16); Aspartate Amino Transferase 24 U/L (14-36); Bilirubin,Total 0.5 mg/dL (0.2-1.3); Blood Urea Nitrogen 30 mg/dL (7-17); Calcium 9.2 mg/dL (8.4-10.2); Carbon Dioxide 28 mmol/L (22-30); Chloride 100 mmol/L (98-107); Estimated CRCL calculation 52 ml/min; Estimated Glomerular Filt Rate > 60; Glucose 108 mg/dL (65-110); Lipase 423 U/L (23-300); Sodium 141 mmol/L (137-145)
[2021-09-23 19:07] LABS: Prothrombin Time 12.7 Seconds (11.1-14.7)
[2021-09-23 19:08] LABS: Partial Thromboplastin Time 25.2 SECONDS (22.3-36.8)
--- NOTE | 2021-09-23 19:17 | ED.CHESTPAIN ---
HPI - Chest Pain General Chief Complaint: Chest Pain Stated Complaint: cp Time Seen by Provider: 09/23/21 19:09 History of Present Illness HPI narrative: Patient is a 76-year-old female complaining of chest pain, midsternal, tightness, 7 out of 10, lasted for approximately 45 minutes, currently denies any pain, radiated to her jaw that started prior to arrival. Patient denies any shortness of breath, abdominal pain, nausea, vomiting, diaphoresis, fever or chills. Related Data Allergies Allergy/AdvReac Type Severity Reaction Status Date / Time No Known Allergies Allergy Verified 09/23/21 18:36 Review of Systems Review of Systems: All systems reviewed & are unremarkable except as noted in HPI and below Constitutional: Constitutional: Denies body ache(s), Denies chills, Denies excessive sweating, Denies fatigue, Denies fever(s), Denies headache(s), Denies lethargy, Denies malaise, Denies weakness and Denies weight loss Eyes: Eyes: Denies blurry vision, Denies change in vision and Denies loss of vision ENT: Denies dizziness, Denies ear discharge, Denies headache(s), Denies lip swelling, Denies epistaxis, Denies nasal congestion, Denies neck pain, Denies throat swelling and Denies tongue swelling Cardiovascular: Cardiovascular: Denies diaphoresis, Denies rapid heart rate, Denies edema, Denies irregular heart rhythm, Denies lightheadedness, Denies palpitations, Denies dyspnea and Denies dyspnea on exertion Respiratory: Respiratory: Denies chest congestion, Denies cough, Denies hemoptysis, Denies dyspnea and Denies dyspnea on exertion Gastrointestinal: Gastrointestinal: Denies abdominal pain, Denies melena, Denies hematochezia, Denies diarrhea, Denies nausea, Denies vomiting and Denies hematemesis Musculoskeletal: Musculoskeletal: Denies abnormal gait, Denies deformity, Denies joint swelling, Denies limited range of motion, Denies neck pain and Denies numbness Neurologic: Denies Abnormal speech present, Denies abnormal gait, Denies confusion, Denies dizziness, Denies headache(s), Denies focal weakness, Denies loss of vision, Denies numbness, Denies Other visual disturbances, Denies Sensory deficit (Neuro) and Denies weakness Psychiatric: Psychiatric: Denies confusion, Denies depression, Denies auditory hallucinations, Denies homicidal ideation and Denies suicidal ideation Endocrine: Endocrine: Denies cold intolerance, Denies excessive sweating, Denies fatigue, Denies heat intolerance and Denies palpitations Hematologic/Lymphatic: Hematologic/Lymphatic: Denies easy bleeding and Denies easy bruising Allergic/Immunologic: Allergic/Immunologic: Denies lip swelling, Denies throat swelling and Denies tongue swelling Exam Const: General: cooperative, healthy appearing, comfortable, no acute distress, well developed, alert and awake; No confusion Orientation/consciousness: oriented to person, oriented to place, oriented to time, patient oriented x3 and No confusion Limitations: no limitations HENMT: Head: normal to inspection, normocephalic and atraumatic Ears: hearing grossly normal bilaterally, TM normal on the right and TM normal on the left General nose exam: Normal external nose present, Normal nares present and No nasal discharge present Face and sinus: normal facial exam Mouth: Yes Normal oral and palatal mucosa present, Yes lip normal, Yes tongue normal and Yes oropharynx normal Throat: posterior oropharynx normal, tonsils normal and uvula midline Eyes: General: appearance normal, both eyes and all related structures Pupils: Equal, round and reactive pupils present EOM: EOMs intact bilaterally Neck: Neck: normal visual inspection, full ROM, no lymphadenopathy and no meningeal signs Chest: Chest palpation & inspection: normal inspection of the chest Resp: Effort & Inspection: normal respiratory effort, able to speak in complete sentences, no respiratory distress and not tachypneic Auscultation: clear to auscultation bilaterally, no c
[2021-09-23 19:18] LABS: Troponin I < 0.012 ng/mL (0.000-0.034)
--- NOTE | 2021-09-23 19:59 | PM.IMHP ---
H&P: HPI History of Present Illness Date/Time: 09/23/21 19:59 Chief Complaint: Chest pain Narrative: This is a 76-year-old female with past medical history significant for type 2 diabetes mellitus, congestive heart failure, dyslipidemia. patient presents to the emergency room after sudden onset of chest pain which was localized to the epigastric area radiating to the neck angio accompanied by diaphoresis, clamminess, coolness, shortness of breath, lasted 45 minutes called 911 and patient was brought to the emergency room and through to receive four baby aspirins at the time of my visit patient rated the pain 0/10 according to patient she has been in her usual state of health denies any chest pain with activity or at rest no leg swelling, no palpitations, she had some dizziness with did but no syncope or near syncope, denies PND, no orthopnea, has some leg swelling, which states that is her usual. Preliminary workup was essentially nonrevealing. Patient is been placed in observation for further evaluation, management and treatment. Review of Systems Review of Systems: Chest pain. Constitutional: Constitutional: Denies chills, Denies fatigue, Denies fever(s), Denies lethargy, Denies malaise and Denies night sweats Eyes: Eyes: Denies change in vision ENT: Denies dysphagia, Denies vertigo, Denies dizziness and Denies odynophagia Cardiovascular: Cardiovascular: Reports chest pain, Denies syncope, Denies irregular heart rhythm, Reports leg edema, Reports lightheadedness, Denies palpitations, Denies dyspnea on exertion and Denies paroxysmal nocturnal dyspnea Respiratory: Respiratory: Denies chest congestion, Denies cough, Denies excessive phlegm production and Denies dyspnea Gastrointestinal: Gastrointestinal: Denies abdominal pain, Denies dyspepsia, Denies heartburn, Denies nausea and Denies vomiting Genitourinary: Genitourinary: Denies dysuria Musculoskeletal: Musculoskeletal: Denies back pain, Denies myalgias and Denies muscle weakness Integumentary/Breasts: Skin/Breast: Denies rash Neurologic: Denies syncope, Denies focal weakness and Denies Sensory deficit (Neuro) Psychiatric: Psychiatric: Reports no additional psychiatric complaints and Reports as per HPI Endocrine: Endocrine: Denies cold intolerance, Denies fatigue, Denies flushing, Denies heat intolerance, Denies polyphagia, Denies polydipsia and Denies palpitations Hematologic/Lymphatic: Hematologic/Lymphatic: Reports no additional hematologic/lymphatic complaints and Reports as per HPI Allergic/Immunologic: Allergic/Immunologic: Reports no additional allergic/immunologic complaints and Reports as per HPI [facility] Family History Family History Mother Cerebrovascular accident Father Myocardial infarct Coronary artery disease Congestive heart failure Hypertension Son Kidney stones Rectal cancer Throat cancer Son Kidney stones Myocardial infarct Chronic kidney disease Social History Social History (Updated 09/23/21 @ 23:47 by Arsh Reilly MD) Social History: lives at home with Smoking status: Never smoker Second hand tobacco smoke exposure: No Alcohol intake: never Substance use: never Substance use type: does not use Spiritual care concerns: No Meds Home Medications and Allergies Home Medications Medication Instructions Recorded Confirmed Type albuterol sulfate 90 mcg/actuation 2 puff inhalation QID PRN 09/23/21 09/23/21 History aerosol inhaler (ProAir HFA) Shortness Of Breath Or Wheezing amlodipine 5 mg tablet 5 mg PO DAILY 09/23/21 09/23/21 History aspirin 81 mg tablet,delayed 81 mg PO HS 09/23/21 09/23/21 History release blood sugar diagnostic (FreeStyle 09/23/21 09/23/21 History Lite Strips) calcium carbonate 600 mg calcium 600 mg PO DAILY 09/23/21 09/23/21 History (1,500 mg) tablet carvedilol 6.25 mg tablet 6.25 mg PO BID 09/23/21
--- NOTE | 2021-09-23 20:16 | PC.NURSE ---
Pt had covid 06/24 and was admitted here for 5 days. Per HS, no swab needed d/t pt testing POSITIVE within the last 3 months. Registration notified that pt's ED record needs to be merged with pt's chart, which is why no pmh evident during this visit.
--- NOTE | 2021-09-23 22:12 | ADMGEN ---
This patient, Scarlett Gómez, was admitted to IMU Room 202-01 on 09/23/21 at 2152. Patient/family oriented to hospital policies and general routines including ID bracelet, bed and alarms, visiting hours, pain management, procedures, bathroom and other care routines, personal items, smoking policy, room service/diet, and visiting hours. Information on how to activate the Rapid Response Team has been discussed. Patient/Family are encouraged to report perceived risks to care and to ask questions if they do not understand what they are told or what they should do.
[2021-09-23 22:29] LABS: Troponin I 0.013 ng/mL (0.000-0.034)
[2021-09-24] VITALS (17 sets, daily range): BP systolic 108–139; BP diastolic 55–82; PULSE 65–86; RESP 14–20; TEMP 36.1–36.6; O2SAT 92–98
[2021-09-24 01:28] LABS: NT Pro B Type Natriuretic Pept 703 pg/mL (5-100)
[2021-09-24 01:29] LABS: Troponin I < 0.012 ng/mL (0.000-0.034)
[2021-09-24] MEDS: SACUBITRIL/VALSARTAN 49-51 MG TABLET 1 TABLET PO ×3 (01:57→20:45)
[2021-09-24] MEDS: SIMVASTATIN 20 MG TABLET PO ×2 (01:57→20:46)
[2021-09-24] MEDS: PRAMIPEXOLE 0.25 MG TABLET 0.75 MG PO ×2 (01:58→20:45)
[2021-09-24] MEDS: carvediloL 6.25 MG TABLET PO ×3 (01:58→20:44)
[2021-09-24 08:26] LABS: Glucose Point of Care 130 mg/dl (65-105)
[2021-09-24] MEDS: PANTOPRAZOLE 40 MG TABLET PO ×2 (09:25→20:45)
[2021-09-24] MEDS: CALCIUM CARBONATE (OSCAL) 500 MG TABLET PO (09:25)
[2021-09-24] MEDS: MULTIVITAMINS /C LUTEIN (CENTRUM SILVER) TABLET *BKC 1 TAB PO (09:25)
[2021-09-24] MEDS: CHOLECALCIFEROL 1,000 UNITS TABLET 1000 UNITS PO (09:25)
[2021-09-24] MEDS: amLODIPine BESYLATE 5 MG TABLET PO (09:25)
[2021-09-24] MEDS: LORATADINE 10 MG TABLET PO (09:26)
[2021-09-24] MEDS: TORSEMIDE 20 MG TABLET PO (09:26)
[2021-09-24] MEDS: CITALOPRAM HYDROBROMIDE 20 MG TABLET PO (09:26)
[2021-09-24] MEDS: ENOXAPARIN 40 MG/0.4 ML SYRINGE SUB-Q (09:26)
--- NOTE | 2021-09-24 10:03 | PM.IMPN ---
Progress Note: A&P Assessment and Plan (1) Chest pain: Code(s): R07.9 - Chest pain, unspecified Status: Acute Assessment and Plan: Patient presents with acute onset of chest pain. Troponins are negative x3. EKG shows left bundle branch block which appears to be chronic. Chest x-ray is clear. Will need to verify her history but it appears the patient had a heart catheterization 3 months ago that was clean making coronary disease as etiology of her chest pain less likely. She was not tachycardic or hypoxic on admission making PE less likely. Lipase is mildly elevated. She may have passed the small gallstone. Consider also esophageal reflux with spasm. She was clammy and dizzy during the events so consider also cardiac dysrhythmia. Cardiology has been consulted. Echocardiogram has been ordered although probably not needed given that she is followed closely by Cardiology. Will repeat lipase. Will check D-dimer. Continue telemetry. (2) Congestive heart failure: Code(s): I50.9 - Heart failure, unspecified Status: Acute Assessment and Plan: Chest x-ray is clear. BNP 700 but patient clinically appears euvolemic. Continue fluid restriction. Continue Coreg and Entresto. (3) Type 2 diabetes mellitus: Code(s): E11.9 - Type 2 diabetes mellitus without complications Status: Acute Assessment and Plan: The patient's blood glucose was reviewed on 09/24 Glucose remains well controlled. Continue AccuCheks covering with sliding scale. Hypoglycemia protocol available as needed. Continue to monitor (4) Hypertension: Code(s): I10 - Essential (primary) hypertension Status: Acute Assessment and Plan: Patient's blood pressure was reviewed on Blood pressure remains well controlled. Will continue current medications. Plan Code status: Full DVT prophylaxis: Lovenox Diet: Diabetic with fluid restriction Subjective Date/time seen: 09/24/21 10:03 Interval history: 76yo female with CHF and valvular disease here for chest pain. Assuming care. Chart reviewed. Patient had sudden onset chest pain that lasted 45 minutes. It appeared to be easing off prior to receiving the 4 baby aspirin. She had last eaten a few hours prior to onset of symptoms. She is followed by Cardiology with echocardiogram every 6 months for her valvular disease. She also underwent left heart catheterization in May which showed clean coronaries. No further chest pain. She states the Left BBB is chronic. Exam Narrative: AF 97.2 132/82 85 16 92% ra Gen - NARD Chest - CTA bilaterally, nml RR CV - RRR S1/S2. Tele showing PVCs with trigeminy Abd - Soft, NT/ND, Positive BS Ext - nonpitting pedal edema Psych - Nml mood and affect Skin - Warm and dry Objective Data Vital Signs Vital Signs: Vital Signs - 24 hr 09/23/21 18:19 09/23/21 18:34 09/23/21 18:35 Temperature 97.6 F 97.0 F L Pulse Rate 78 Respiratory Rate Blood Pressure Pulse Oximetry Oxygen Delivery 09/23/21 18:35 09/23/21 18:34 09/23/21 18:45 Temperature Pulse Rate 81 78 Respiratory Rate 14 17 Blood Pressure 142/92 H Pulse Oximetry 96 94 Oxygen Delivery Room Air 09/23/21 19:00 09/23/21 19:15 09/23/21 19:30 Temperature Pulse Rate 78 78 80 Respiratory Rate 15 13 14 Blood Pressure Pulse Oximetry 94 97 Oxygen Delivery 09/23/21 19:45 09/23/21 20:00 09/23/21 20:15 Temperature Pulse Rate 76 73 72 Respiratory Rate 12 13 10 L Blood Pressure Pulse Oximetry 99 96 97 Oxygen Delivery 09/23/21 20:21 09/23/21 20:30 09/23/21 20:31 Temperature Pulse Rate 83 78 78 Respiratory Rate 15 17 15 Blood Pressure 132/75 128/105 H Pulse Oximetry 97 96 94 Oxygen Delivery 09/23/21 20:45 09/23/21 20:46 09/23/21 21:00 Temperature Pulse Rate 81 77 75 Respiratory Rate 15 14 12 Blood Pressure 150/83 H Pulse Oximetry 96 94 97 O
--- NOTE | 2021-09-24 10:33 | PM.CNCAR ---
Assessment and Plan Assessment and plan (1) Chest pain: Code(s): R07.9 - Chest pain, unspecified Status: Acute Assessment and Plan: Acute chest pain, fairly intense and of concern Troponins are all normal and no significant coronary disease by cardiac catheterization in May 2021 suggests this is noncardiac pain. D-dimer is pending to evaluate for possible PE Had elevated lipase; may have had a gallstone Doubt cardiac etiology; no further cardiac evaluation need. (2) Cardiomyopathy: Code(s): I42.9 - Cardiomyopathy, unspecified Status: Acute Assessment and Plan: History of mild cardiomyopathy and CHF which appears stable. (3) Coronary artery calcification: Code(s): I25.10 - Atherosclerotic heart disease of [place] coronary artery without angina pectoris; I25.84 - Coronary atherosclerosis due to calcified coronary lesion Status: Acute Assessment and Plan: Coronary artery calcification with no significant obstructive lesions. Continue primary prevention (4) Mitral regurgitation: Code(s): I34.0 - Nonrheumatic mitral (valve) insufficiency Status: Acute Assessment and Plan: Severe mitral regurgitation Followed by Dr. Christie, echo and office visit scheduled in October Unimpressive murmurs (5) Tricuspid regurgitation: Qualifiers: Cardiac valve disease etiology: nonrheumatic Qualified Code(s): I36.1 - Nonrheumatic tricuspid (valve) insufficiency Code(s): I07.1 - Rheumatic tricuspid insufficiency Status: Acute Assessment and Plan: Severe tricuspid regurgitation followed by Dr. Christie (6) Hyperlipidemia: Code(s): E78.5 - Hyperlipidemia, unspecified Status: Acute Assessment and Plan: Takes simvastatin (7) Hypertension: Code(s): I10 - Essential (primary) hypertension Status: Acute Assessment and Plan: Blood pressure at goal (8) Diet-controlled diabetes mellitus: Code(s): E11.9 - Type 2 diabetes mellitus without complications Status: Acute Assessment and Plan: Diet controlled, A1c pending (9) Left bundle branch block: Code(s): I44.7 - Left bundle-branch block, unspecified Status: Acute Assessment and Plan: Chronic left bundle branch block. History of Present Illness History of Present Illness Consult date/time: 09/24/21 10:33 Reason For Visit: Chest Pain Narrative: Scarlett Gómez this 76-year-old white female whom I was asked to see at the request of Dr. Amaya for my advice and opinion regarding her chest pain in consultation. The patient is followed by Dr. Christie, last seen 07/2021 doing well. She has a history of severe mitral regurgitation,moderate to severe tricuspid regurgitation, a cardiomyopathy and CHF with an ejection fraction dropping to 40-45% in May 2021. She underwent cardiac catheterization at that time for further evaluation which revealed no CAD, EF 45%, and moderate mitral regurgitation. She seemed to be improving but still had edema so her furosemide was changed to torsemide. Dr. Christie was going to re-evaluate her mitral and tricuspid regurgitation in a few months and consider repair the mitral and tricuspid valve if no improvement. She has history of PVCs, hyperlipidemia and coronary artery calcification, hypertension, left bundle-branch block, diet-controlled diabetes and asthma. The patient was in normal state of health yesterday, able to clean 2 bathrooms. Later while doing the dishes she had intense discomfort around the epigastric area which radiated up through to the chest to the jaws. She felt a little bit lightheaded, a little short of breath but there was no nausea. It was nonpleuritic and nonpositional but she just could not get comfortable. An ambulance was called, gave her aspirin and by the time she
[2021-09-24 11:49] LABS: Alanine Aminotransferase 20 U/L (6-35); Albumin Level 4.3 g/dL (3.5-5.1); Alkaline Phosphatase 75 U/L (38-126); Anion Gap 7 mmol/L (8-16); Aspartate Amino Transferase 25 U/L (14-36); Bilirubin,Total 0.6 mg/dL (0.2-1.3); Blood Urea Nitrogen 25 mg/dL (7-17); Calcium 8.7 mg/dL (8.4-10.2); Carbon Dioxide 30 mmol/L (22-30); Chloride 102 mmol/L (98-107); Estimated CRCL calculation 50 ml/min; Estimated Glomerular Filt Rate > 60; Glucose 123 mg/dL (65-110); Lipase 126 U/L (23-300); Potassium 3.7 mmol/L (3.4-5.0); Sodium 139 mmol/L (137-145)
[2021-09-24 12:39] LABS: D Dimer 0.73 ug/mL (<0.48)
[2021-09-24 13:03] LABS: Glucose Point of Care 122 mg/dl (65-105)
[2021-09-24 16:39] LABS: Glucose Point of Care 140 mg/dl (65-105)
[2021-09-24] MEDS: ASPIRIN 81 MG ENTERIC TABLET PO (20:45)
[2021-09-24 20:56] LABS: Glucose Point of Care 171 mg/dl (65-105)
--- NOTE | 2021-09-24 21:01 | PCRCNOTE ---
RT spoke with pt, pt stated she doesn't know home CPAP setting.
[2021-09-25] VITALS (12 sets, daily range): BP systolic 139–144; BP diastolic 58–71; PULSE 64–89; RESP 16–20; TEMP 36.4–36.5; O2SAT 94–98
[2021-09-25] MEDS: WATER FOR IRRIGATION, STERILE 1,000 ML BOTTLE 1000 ML (00:50)
[2021-09-25 04:59] LABS: Hemoglobin A1C 6.7 % (<5.7)
[2021-09-25 05:26] LABS: Anion Gap 9 mmol/L (8-16); Blood Urea Nitrogen 23 mg/dL (7-17); Calcium 8.8 mg/dL (8.4-10.2); Carbon Dioxide 27 mmol/L (22-30); Chloride 101 mmol/L (98-107); Estimated CRCL calculation 55 ml/min; Estimated Glomerular Filt Rate > 60; Glucose 106 mg/dL (65-110); Magnesium 2.3 mg/dL (1.6-2.3); Potassium 3.7 mmol/L (3.4-5.0); Sodium 137 mmol/L (137-145)
[2021-09-25 07:42] LABS: Glucose Point of Care 107 mg/dl (65-105)
[2021-09-25] MEDS: amLODIPine BESYLATE 5 MG TABLET PO (09:43)
[2021-09-25] MEDS: CHOLECALCIFEROL 1,000 UNITS TABLET 1000 UNITS PO (09:43)
[2021-09-25] MEDS: MULTIVITAMINS /C LUTEIN (CENTRUM SILVER) TABLET *BKC 1 TAB PO (09:44)
[2021-09-25] MEDS: PANTOPRAZOLE 40 MG TABLET PO (09:44)
[2021-09-25] MEDS: SACUBITRIL/VALSARTAN 49-51 MG TABLET 1 TABLET PO (09:44)
[2021-09-25] MEDS: CALCIUM CARBONATE (OSCAL) 500 MG TABLET PO (09:44)
[2021-09-25] MEDS: LORATADINE 10 MG TABLET PO (09:44)
[2021-09-25] MEDS: TORSEMIDE 20 MG TABLET PO (09:44)
[2021-09-25] MEDS: CITALOPRAM HYDROBROMIDE 20 MG TABLET PO (09:44)
[2021-09-25] MEDS: carvediloL 6.25 MG TABLET PO (09:44)
[2021-09-25] MEDS: ENOXAPARIN 40 MG/0.4 ML SYRINGE SUB-Q (09:45)
--- NOTE | 2021-09-25 12:52 | PM.DS ---
DS: Admitting Diagnosis Discharge Date 09/25/21 Admitting Diagnosis Chest pain DS: Discharge Diagnosis Discharge Diagnosis (1) Chest pain: Code(s): R07.9 - Chest pain, unspecified Status: Acute (2) Congestive heart failure: Code(s): I50.9 - Heart failure, unspecified Status: Acute (3) Type 2 diabetes mellitus: Code(s): E11.9 - Type 2 diabetes mellitus without complications Status: Acute (4) Hypertension: Code(s): I10 - Essential (primary) hypertension Status: Acute DS: Summary Hospital Course Reason for hospitalization: 76yo female with CHF and valvular disease here for chest pain. Please see H&P for detials Hospital Course: Patient presents with acute onset of chest pain.? Troponins were negative x3.? EKG shows left bundle branch block which appears to be chronic.? Chest x-ray was clear.? The patient had a heart catheterization 3 months ago that was clean. DDimer was mildly positive. CTA negative for PE.? Lipase was mildly elevated but normal on repeat.? She may have passed the small gallstone.? Consider also esophageal reflux with spasm.? She was clammy and dizzy during the events so consider also cardiac dysrhythmia but felt less likely; no significant dysrhythmias and Trop were negative.? Cardiology was consulted. BNP 700 but patient clinically appeared euvolemic.? We continued Coreg and Entresto. No further recommendations per Cardiology. She denies any further symptoms. Patient overall did well was able to discharge home on 09/25/2021. Status at Discharge Cognitive/behavioral status at discharge: Stable Time Spent with Patient Time attestation: Total time spent providing and/or coordinating discharge services:35 minutes Exam Narrative: AF 97.7 144/71 75 16 96% ra Gen - NARD Chest - CTA bilaterally, nml RR CV - RRR S1/S2. Tele showing no significant dysrhythmias Abd - Soft, NT/ND, Positive BS Ext - no pedal edema Psych - Nml mood and affect Skin - Warm and dry DS: Data Data Completed and Pending Labs on day of discharge: Labs from last 24 hours 09/25/21 09/25/21 09/25/21 07:28 04:04 04:04 Sodium 137 Potassium 3.7 Chloride 101 Carbon Dioxide 27 Anion Gap 9 BUN 23 H Creatinine 0.80 Estim Creat Clear Calc 55 Estimated GFR > 60 Glucose 106 POC Capillary Glucose 107 H Hemoglobin A1c 6.7 H Calcium 8.8 Magnesium 2.3 09/24/21 09/24/21 09/24/21 20:53 16:28 12:03 Sodium Potassium Chloride Carbon Dioxide Anion Gap BUN Creatinine Estim Creat Clear Calc Estimated GFR Glucose POC Capillary Glucose 171 H 140 H 122 H Hemoglobin A1c Calcium Magnesium Discharge Plan Discharge Attending physician on discharge: Omkar Wharton Consulting providers: Ana Young Discharging Clinician: Omkar Wharton Anticipated Discharge Date/Time: 09/25/21 12:59 Patient Disposition: Home, Self-Care Activity: as tolerated Diet: diabetic Discharge Instructions: Take precautions to avoid falls. Rise slowly from a lying or sitting position. Pause before standing or walking. Contact your doctor or call 911 and come to the Emergency Room if you have recurrent chest pain or other worrisome symptoms. Follow-up with your doctor in 1-2 weeks. Please call for appointment. Follow-up with cardiology at next scheduled appointment. Thank you for using [facility] for your pietro care needs. Patient Instructions: Antibiotic Form, Angina (DC), Heart Failure (DC) Stand Alone Forms: General Discharge Information Follow-up/Referrals: Celso Mack MD [Primary Care Provider] - Call for Appointment Discharge Medications: Continued carvedilol 6.25 mg tablet 6.25 mg PO BID torsemide 20 mg tablet 20 mg PO DAILY (DME) FreeStyle Lite Strips Strip MISCELLANEOUS Rx Instructions: Check blood s
[2021-09-25 13:08] LABS: Glucose Point of Care 126 mg/dl (65-105)
== END 2021-09-25 15:00 | disposition home or self-care (01) ==
LOC: ANHED 19:44 → ANHIMU 20:19
PROVIDERS: Emergency Medicine; Admitting Provider Internal Medicine; Emergency Provider Emergency Medicine; PCP Family Medicine; Visit Provider Internal Medicine
DX: R07.9 Chest pain, unspecified (principal); I42.9 Cardiomyopathy, unspecified; I25.10 Atherosclerotic heart disease of native coronary artery without angina pectoris; I34.0 Nonrheumatic mitral (valve) insufficiency; I36.1 Nonrheumatic tricuspid (valve) insufficiency; I44.7 Left bundle-branch block, unspecified; E11.9 Type 2 diabetes mellitus without complications; I11.0 Hypertensive heart disease with heart failure; I50.9 Heart failure, unspecified; E78.5 Hyperlipidemia, unspecified; Z79.51 Long term (current) use of inhaled steroids; Z79.82 Long term (current) use of aspirin; Z79.84 Long term (current) use of oral hypoglycemic drugs
CPT/HCPCS: 36415; 71046; 71275; 80048; 80053; 82948; 83036; 83690; 83735; 83880; 84484; 85025; 85380; 85610; 85730; 93005; 93970; 94002; 96372; 99285; A9270; G0378; J1650; Q9967

== ENCOUNTER → 2021-10-10 09:57 | Outpatient (CLI) | payer MEDICARE, OTHER, SELFPAY ==
--- NOTE | ~2021-10-10 | MR_ITS ---
EXAMINATION: MR knee LT wo con DATE: 10/10/2021 10:52 INDICATION: Left knee pain TECHNIQUE: Magnetic resonance imaging (MRI) of the left knee was performed without intravenous contra st. Sequences included coronal PD-weighted FSE, coronal PD-weighted FS FSE, sagittal T2-weighted FSE , sagittal PD-weighted FS FSE and axial PD weighted fat saturated FSE. COMPARISON: Left knee radiographs dated 09/14/2021 FINDINGS: Medial compartment: Complex tear at the posterior horn of the medial meniscus with full-thickness radial component near t he posterior root and with small longitudinal vertical component which contacts the inferior articula r surface in the peripheral third and which extends approximately 1 cm medially from the radial tear. There is medial extrusion of the meniscal body with thickening of the intervening meniscus at the ju nction of the body and posterior horn. There is extensive full/near full-thickness chondral ulceratio n along the anterior, central and portions of the posterior weightbearing medial femoral condyle. Add itional deep chondral ulceration at the medial to central aspect of the medial tibial plateau. Lateral compartment: Lateral meniscus is normal. Mild partial-thickness cartilage loss with smooth chondral surface along the weightbearing lateral femoral condyle. Cartilage at the lateral tibial plateau is normal. Patellofemoral compartment: Deep chondral ulceration without degenerative subchondral changes at the apical ridge and immediately adjacent medial patellar facet. Small region of deep chondral fissuring at the inferior aspect of th e medial trochlea. Ligaments and tendons: Anterior and posterior cruciate ligaments are normal. The medial collateral ligament and fibular [place] ateral ligament complex are normal. Minimal distal quadriceps tendinopathy with small enthesophytes a t its patellar insertion. Patellar tendon is normal. The visualized medial and lateral hamstring tend ons as well as the iliotibial band are normal. Fluid: Small left knee joint effusion with synovitis at the margins of the suprapatellar pouch. No loose ost eochondral bodies identified. Small amount of soft tissue edema along the margins of a large multilob ulated Cobb's cyst which extends approximately 9.8 cm craniocaudal length and up to 4.1 x 2.0 cm in maximal transaxial dimensions. Prepatellar edema without discrete bursal fluid collection. Osseous/other: There is prominent marrow edema at the medial tibial plateau surrounding a small curvilinear low sign al intensity subarticular nondisplaced fracture line which could be related to a direct impaction inj ury or more likely stress fracture resulting from altered weight distribution resulting from the meni scal tear. There is prominent likely reactive soft tissue edema along the peripheral margins of the m edial tibial plateau. Bone marrow signal is otherwise unremarkable with no pathologic marrow replacin g process. IMPRESSION: 1. Complex tear of the posterior horn of the medial meniscus. 2. Nondisplaced subarticular fracture line at the medial tibial plateau likely stress fracture relate d to altered weight distribution resulting from the meniscal tear. 3. Tricompartmental osteoarthritis, severe with extensive high-grade chondromalacia in the medial com partment, mild to moderate severity with additional small regions of moderate to high-grade chondral malacia in the patellofemoral compartment and minimal in the lateral compartment. 4. Large multilobulated Cobb's cyst. Reviewed, dictated and finalized at location A. IMPRESSION: 1. Complex tear of the posterior horn of the medial meniscus. 2. Nondisplaced subarticular fracture line at the medial tibial plateau likely stress fracture related
== END ==
PROVIDERS: PCP Family Medicine; Visit Provider Orthopaedic Surgery
DX: S83.232D Complex tear of medial meniscus, current injury, left knee, subsequent encounter (principal); X58.XXXD Exposure to other specified factors, subsequent encounter; M17.12 Unilateral primary osteoarthritis, left knee; M71.22 Synovial cyst of popliteal space [Baker], left knee
CPT/HCPCS: 73721

== ENCOUNTER 2022-02-13 09:04 | Outpatient (CLI) | payer MEDICARE, OTHER, SELFPAY ==
--- NOTE | ~2022-02-13 | DEXA_ITS ---
Bone Density Report Name: JOVANY RAMSAY Age: 77 Sex: Female Ethnicity: White Date of : 1945 Indication: postmenopausal; screening for osteoporosis; parental hip fracture; height loss; hysterectomy; Referring Provider: SHAAN HANKS Study: Bone densitometry was performed. Exam Date: February 13, 2022 Accession number: [id number] Bone Density: Region BMD T-score Z-score Classification AP Spine(L1-L4) 1.148 0.9 3.4 Normal Femoral Neck (Left) 0.938 0.8 2.9 Normal Total Hip (Left) 1.266 2.7 4.5 Normal Femoral Neck (Right) 1.025 1.6 3.7 Normal Total Hip (Right) 1.248 2.5 4.3 Normal Total Hip Mean 1.257 2.6 4.4 Normal World Health Organization criteria for BMD impression classify patients as: Normal (T-score at or above -1.0), Osteopenia (T-score between -1.0 and -2.5), or Osteoporosis (T-score at or below -2.5). 10-year Fracture Risk: FRAX not reported because: All T-scores for Spine Total, Hip Total, Femoral Neck at or above -1.0 Previous Exams: Region Exam Age BMD T-score BMD Change BMD Change Date g/cm2 vs Baseline vs Previous AP Spine (L1-L4) 02/13/2022 77 1.148 0.9 0.002 (0.2%) 0.002 (0.2%) 01/10/2017 71 1.146 0.9 Total Hip(Left) 02/13/2022 77 1.266 2.7 0.006 (0.5%) 0.006 (0.5%) 01/10/2017 71 1.260 2.6 Total Hip(Right) 02/13/2022 77 1.248 2.5 0.030 (2.4%)* 0.030 (2.4%)* 01/10/2017 71 1.219 2.3 *Denotes significance at 95% confidence level, LSC for AP Spine = 0.022 g/cm2, LSC for Total Hip = 0.027 g/cm2 Clinical Information Provided by Patient: Parent has had a hip fracture Has used the following medications: Vitamin D, Calcium Has the following medical conditions: Hysterectomy Patient maximum height was 63.5 Menopause Age: 33 No regular weight bearing exercise Drinks caffeinated beverages Onset of menses at age 13 Number of children 3 Impression: The patient has normal bone mass. The patient has risk factors, including: parental hip fracture. No significant bone loss was observed. Discussion: LOW RISK OF FRACTURE; BONE DENSITY IS WELL ABOVE THE MINIMUM DESIRABLE LEVEL AND ABOVE AVERAGE FOR AGE AND SEX AT ALL SKELETAL SITES TESTED. This person's bone density is above expected limits for age and sex. This is rarely clinically significant, but should be pursued if there are significant musculoskeletal complaints. The patient should follow a healthful lifestyle (good nutrition
== END 2022-02-13 09:05 | disposition home or self-care (01) ==
LOC: ANHIMG 09:05
PROVIDERS: PCP Family Medicine; Visit Provider Family Medicine
DX: Z78.0 Asymptomatic menopausal state (principal)
CPT/HCPCS: 77080

== ENCOUNTER 2022-02-24 08:07 | Emergency (ER) | payer MEDICARE, OTHER, SELFPAY ==
--- NOTE | 2022-02-24 08:29 | ED.URI ---
HPI - URI/Sore Throat General Chief Complaint: Upper Respiratory Infection Stated Complaint: cough,feels awful Source: patient and RN notes reviewed Mode of arrival: ambulatory Limitations: no limitations History of Present Illness HPI Narrative: 77-year-old female with hx HTN, CHF, DM presented for complaint of headache, body aches, sinus pressure/congestion, cough, fever/chills. Onset last evening. He endorses like it is settling in her chest and she feels fatigued. She is taking DayQuil and NyQuil for symptoms. She denies sick contacts. She endorses COVID boosters. She currently denies shortness of breath, wheezing, nausea, vomiting, diarrhea. She has a history of congestive heart failure, stating her edema is at her baseline she denies chest pain or palpitations. MD elicited complaint: cough Related Data Home Medications Medication Instructions Recorded Confirmed amlodipine 5 mg tablet 5 mg PO DAILY 09/23/21 01/24/22 calcium carbonate 600 mg calcium 600 mg PO DAILY 09/23/21 01/24/22 (1,500 mg) tablet carvedilol 6.25 mg tablet 6.25 mg PO BID 09/23/21 01/24/22 citalopram 20 mg tablet 20 mg PO DAILY 09/23/21 01/24/22 sacubitril 49 mg-valsartan 51 mg 1 tablet PO BID 09/23/21 01/24/22 tablet (Entresto) torsemide 20 mg tablet 20 mg PO DAILY 09/23/21 01/24/22 Allergies Allergy/AdvReac Type Severity Reaction Status Date / Time No Known Allergies Allergy Verified 02/24/22 08:27 Review of Systems Review of Systems: per [facility] Past Medical History Medical History Anxiety Bilateral hip pain Cardiomyopathy 05/2021 EF 40-45% Carpal tunnel syndrome Coronary artery calcification 05/2021 cardiac catheterization showed no significant coronary disease. Diet-controlled diabetes mellitus Dyslipidemia Gastroesophageal reflux disease Gout Hammer toe Hepatic steatosis HLD (hyperlipidemia) HTN (hypertension) Hyperlipidemia IFG (impaired fasting glucose) Intraductal papillary mucinous neoplasia Left bundle branch block Left bundle branch block Metabolic syndrome Mitral regurgitation Pancreatic cyst Primary osteoarthritis of left knee Primary osteoarthritis of right knee Right clavicle fracture RLS (restless legs syndrome) Sleep apnea Uses CPAP Tricuspid regurgitation Type 2 diabetes mellitus with diabetic neuropathy, without long-term current use of insulin Vitamin D deficiency, unspecified Surgical History Surgical History H/O cataract extraction Bilateral eyes June 2020 H/O: hysterectomy History of orthopedic surgery Right toe surgery Hx of tonsillectomy Presence of right artificial knee joint Family History Family History Mother Cerebrovascular accident Father Myocardial infarct Coronary artery disease Congestive heart failure Hypertension Son Kidney stones Rectal cancer Throat cancer Son Kidney stones Myocardial infarct Chronic kidney disease Mother Cerebrovascular accident Father Family history of coronary artery disease Other Family history of arthritis Social History Social History Social History: lives at home with Smoking status: Never smoker Second hand tobacco smoke exposure: No Alcohol intake: never Substance use: never Substance use type: does not use Gender identity (if verbalized by the patient): Female Sexual Orientation (if Verbalized by the Patient): Straight or Heterosexual Spiritual care concerns: No Exam Narrative: GENERAL: Ill-appearing, nontoxic no acute distress. HEAD: Normocephalic EYES: PERRLA, conjunctivae clear ENT: Mucous membranes moist. TMs pearly neely with dull light reflex bilaterally; no tragal tenderness. CHEST: Clear to auscultation, breath sounds equal. No wheezing, rhonchi,
[2022-02-24 08:31] VITALS: BP 135/66; PULSE 93; RESP 16; TEMP 36.6; O2SAT 98
== END 2022-02-24 09:48 | disposition home or self-care (01) ==
PROVIDERS: Emergency Provider Nurse Practitioner Family; PCP Family Medicine
DX: B34.9 Viral infection, unspecified (principal); Z20.822 Contact with and (suspected) exposure to COVID-19; E78.5 Hyperlipidemia, unspecified; K21.9 Gastro-esophageal reflux disease without esophagitis; M10.9 Gout, unspecified; I10 Essential (primary) hypertension; I34.0 Nonrheumatic mitral (valve) insufficiency; M17.0 Bilateral primary osteoarthritis of knee; G25.81 Restless legs syndrome; G47.30 Sleep apnea, unspecified; I07.1 Rheumatic tricuspid insufficiency; E11.40 Type 2 diabetes mellitus with diabetic neuropathy, unspecified; Z79.4 Long term (current) use of insulin; Z98.42 Cataract extraction status, left eye; Z98.41 Cataract extraction status, right eye; I25.10 Atherosclerotic heart disease of native coronary artery without angina pectoris; F41.9 Anxiety disorder, unspecified
CPT/HCPCS: 87426; 87804; 99213; C9803; G0463

== ENCOUNTER 2022-02-27 09:08 | Outpatient (CLI) | payer MEDICARE, OTHER, SELFPAY ==
--- NOTE | ~2022-02-27 | MM_ITS ---
EXAMINATION: MM screening [facility] BI [facility] [place] HISTORY: Screening mammogram TECHNIQUE: Craniocaudal and mediolateral oblique 3-D tomosynthesis images were obtained and synthetic 2-D images were generated. CAD analysis was submitted and interpreted. COMPARISON: 09/06/2020, 12/08/2019, 04/09/2019, 03/17/2019 BREAST PARENCHYMAL COMPOSITION: There are scattered areas of fibroglandular density. FINDINGS: A stable asymmetry is noted in the posterior third of the left breast on the mediolateral o blique view. No suspicious mass, calcification, or architectural distortion are identified in either breast to suggest malignancy. There has been no suspicious interval change. IMPRESSION: 1. No mammographic evidence of malignancy. 2. Recommend routine screening mammography in one year. BI-RADS Category 2: Benign finding(s). Reviewed, dictated and finalized at location A. F TECHNICIAN X RAY
== END 2022-02-27 09:09 | disposition home or self-care (01) ==
LOC: ANHIMG 09:08
PROVIDERS: PCP Family Medicine; Visit Provider Family Medicine
DX: Z12.31 Encounter for screening mammogram for malignant neoplasm of breast (principal)
CPT/HCPCS: 77063; 77067

== ENCOUNTER 2022-03-13 09:50 | Outpatient (CLI) | payer MEDICARE, OTHER, SELFPAY ==
[2022-03-13 11:06] LABS: Basophils Absolute Auto 0.1 K/mm3 (0.0-0.1); Eosinophils Absolute Auto 0.2 K/mm3 (0-0.3); Eosinophils Percent Auto 2.3 % (0-4.4); Hematocrit 40.8 % (37.0-47.0); Hemoglobin 12.9 g/dL (12.0-15.0); Immature Granulocyte Absolute 0.02 K/mm3 (0.00-0.031); Immature Granulocyte Percent A 0.3 % (0-0.5); Lymphocytes Absolute Auto 2.64 K/mm3 (0.9-3.2); Mean Corpuscular HGB Conc 31.6 g/dl (32-36); Mean Corpuscular Hemoglobin 27.2 pg (26-34); Mean Corpuscular Volume 85.9 fl (80-100); Mean Platelet Volume 11.2 fl (7.4-10.4); Monocytes Absolute Auto 0.6 K/mm3 (0.1-0.6); Monocytes Percent Auto 7.2 % (2.6-8.5); Neutrophils Absolute Auto 4.3 K/mm3 (1.3-6.7); Neutrophils Percent Auto 55.2 % (45.5-73.1); Platelet Count Result 284 k/mm3 (150-375); Red Blood Count 4.75 M/mm3 (4.2-5.4); Red Cell Distribution Width 14.4 % (11.5-14.5); White Blood Count 7.8 K/mm3 (4.5-10.0)
[2022-03-13 11:10] LABS: Urine Cotinine NEGATIVE
[2022-03-13 11:14] LABS: Prothrombin Time 12.9 Seconds (11.1-14.7)
[2022-03-13 11:15] LABS: Albumin Level 4.7 g/dL (3.5-5.1); Anion Gap 7 mmol/L (8-16); Blood Urea Nitrogen 17 mg/dL (7-17); Carbon Dioxide 30 mmol/L (22-30); Chloride 102 mmol/L (98-107); Estimated Glomerular Filt Rate > 60; Glucose 117 mg/dL (65-110); Partial Thromboplastin Time 29.5 SECONDS (22.3-36.8); Potassium 4.2 mmol/L (3.4-5.0); Sodium 139 mmol/L (137-145)
[2022-03-13 11:22] LABS: Appearance Urine Clear (Clear); Bilirubin Urine Negative (Negative); Blood Urine Negative (Negative); Color Urine Light Yellow (Yellow); Glucose Urine UA Negative (Negative); Ketones Urine Negative (Negative); Leukocyte Esterase Ur Negative LEU/UL (Negative); Nitrate Urine Negative (Negative); Protein Urine Negative (Negative); Specific Grav Ur 1.015 (1.001-1.035); Urobilinogen Urine 0.2 mg/dL (<2.0)
[2022-03-13 12:15] LABS: Add Urine Microscopic? NO
== END 2022-03-13 09:51 | disposition home or self-care (01) ==
LOC: ANHSURGERY 09:55
PROVIDERS: PCP Family Medicine; Visit Provider Orthopaedic Surgery
DX: Z01.812 Encounter for preprocedural laboratory examination (principal); M17.12 Unilateral primary osteoarthritis, left knee
CPT/HCPCS: 80048; 80307; 81003; 82040; 85025; 85610; 85730; 87081

== ENCOUNTER 2022-03-27 00:59 | Day surgery (SDC) | payer MEDICARE, OTHER, SELFPAY ==
--- NOTE | 2022-03-13 09:54 | PC.NURSE ---
PRE-OP INSTRUCTIONS, PLEASE READ CAREFULLY Report to the Outpatient Waiting Room, entrance under the green pavilion located off [facility], at time _1000_ on date _03/27/22_. Planned Procedure Time: _1200_. PACK A SMALL OVERNIGHT BAG AND LEAVE IN THE CAR ALONG WITH YOUR WALKER Time changes happen often and if your time is changed the preop area will call you the afternoon before. - You and your visitor will be asked to self-screen and do not enter if you have any COVID symptoms. - Only one visitor is requested with a max of two and NO children visitors are allowed at this time. - The patient visitor may be requested to leave or wait in car when not with patient due to distancing restrictions. - A mask is optional within the hospital. -VISITING HOURS 8AM-8PM Patients may have clear liquids (water, carbonated beverages, clear teas, apple juice) until 3 hours prior to surgery (0900 AM) with a maximum of 20 ounces. - No food from midnight until time of surgery Take the following medications with a SIP of water the morning of surgery: _ CARVEDILOL, CITALOPRAM, ENTRESTO, & INHALER, FLONASE IF NEED_ Medications to discontinue - _ASPIRIN PER DR. ASHBY'S INSTRUCTIONS_ Medications to discontinue per ANESTHESIA -_MULTIVITAMIN 3 DAYS PRIOR TO SURGERY, Date to take last dose 03/23/22_ Please no make-up, nail tanzanian, hairspray, perfume, deodorant, or body powder the day of surgery. No jewelry (including any body piercings) or valuables the day of surgery, leave them at home. Please take a shower or bath the night before, or the morning of, surgery with an antibacterial soap. Wear comfortable, loose fitting clothing. - Jewelry must be removed prior to entering the operating room. Rings and piercings that are not removed may be cut off. - The hospital will not accept responsibility for valuables. - Please leave all valuables, including medications, at home the day of surgery. If you are going home after surgery, a licensed trackless trolley driver must drive you home. - NO public transportation without another adult if you receive anesthesia. - We recommend that an adult stay with you for 24 hours following discharge. - We also recommend that you do not drive, make important decision, drink alcoholic beverages, or take any drugs that were not prescribed by your health care provider for at least 24 hours after your discharge time. Follow any additional instructions given to you from your surgeon. If you or anyone in your household have experienced Covid symptoms in the past week, please notify your surgeon or the nurse liaison at the phone number below for possible testing. Instructions given to _PATIENT_and asked if any additional questions and then verbalized understanding. Patient advised to call surgeon office or pre surgery nurse liaison [phone] if any additional questions.
[2022-03-13 10:16] VITALS: BP 144/60; PULSE 88; RESP 20; TEMP 36.6; O2SAT 97; BMI 37.3
[2022-03-27] VITALS (18 sets, daily range): BP systolic 123–143; BP diastolic 50–74; PULSE 72–101; RESP 10–18; TEMP 36.4–36.6; O2SAT 91–98
--- NOTE | ~2022-03-27 | XR_ITS ---
EXAMINATION: XR knee LT 2V DATE: 03/27/2022 14:47 INDICATION: Total left knee arthroplasty. Postop. TECHNIQUE: 2 views of left knee were obtained. COMPARISON: Left knee radiographs 09/14/2021 FINDINGS: There is a total left knee arthroplasty in near-anatomic alignment without patellar resurfa cing. No fracture. There is gas in the soft tissues, consistent with recent surgery. Anterior skin st aples are noted. IMPRESSION: 1. Total left knee arthroplasty in near-anatomic alignment. Reviewed, dictated and finalized at location A. CONTROL CONSULTANT
--- NOTE | 2022-03-27 09:34 | WPDANESEPPF ---
Anes - Initial Pre Proc Eval Procedure: Operation Date: 03/27/22 12:00 Proposed Procedures p Left Total Knee Arthroplasty - Declan Del Rio MD Date/Time: 03/27/22 09:34 Surgeon: Declan Del Rio MD Pre Op Diagnosis: left knee OA Patient Data Age: 77 Gender: F Height: 1.6 m Weight: 95.5 kg Last Vital Signs Temp 36.6 C 03/13/22 10:16 Pulse 88 03/13/22 10:16 Resp 20 03/13/22 10:16 BP 144/60 H 03/13/22 10:16 Pulse Ox 97 03/13/22 10:16 O2 Del Method Room Air 03/13/22 10:16 Allergies Allergy/AdvReac Type Severity Reaction Status Date / Time No Known Allergies Allergy Verified 03/27/22 11:24 Home Medications Medication Instructions Recorded Confirmed Type calcium carbonate 600 mg calcium 600 mg PO DAILY 09/23/21 03/27/22 History (1,500 mg) tablet carvedilol 6.25 mg tablet 6.25 mg PO BID 09/23/21 03/27/22 History citalopram 20 mg tablet 20 mg PO DAILY 09/23/21 03/27/22 History torsemide 20 mg tablet 20 mg PO DAILY 09/23/21 03/27/22 History metformin 500 mg tablet,extended 500 mg PO BID #180 tabs 11/17/21 03/27/22 Rx release 24 hr omeprazole 40 mg capsule,delayed 40 mg PO DAILY #90 caps 11/17/21 03/27/22 Rx release simvastatin 20 mg tablet 20 mg PO DAILY #90 tabs 11/17/21 03/27/22 Rx aspirin 81 mg tablet,delayed 81 mg PO DAILY #90 tabs 02/22/22 03/27/22 Rx release blood sugar diagnostic (FreeStyle #100 ea 02/22/22 03/27/22 Rx Test strips) cetirizine 10 mg tablet (Zyrtec) 5 mg PO DAILY PRN allergy symptoms 02/22/22 03/27/22 Rx #90 tabs cholecalciferol (vitamin D3) 25 25 mcg PO DAILY #90 caps 02/22/22 03/27/22 Rx mcg (1,000 unit) capsule fluticasone propionate 50 2 spray intranasal DAILY PRN 02/22/22 03/27/22 Rx mcg/actuation nasal congestion #16 grams spray,suspension (Flonase Allergy Relief) lancets 28 gauge (FreeStyle #100 ea 02/22/22 03/27/22 Rx Lancets) multivitamin (Multiple Vitamins 1 tablet PO DAILY #90 tabs 02/22/22 03/27/22 Rx tablet) pramipexole 1.5 mg tablet 0.75 mg PO HS #90 tabs 02/22/22 03/27/22 Rx albuterol sulfate 90 mcg/actuation 2 puff inhalation QID PRN Wheezing 03/13/22 03/27/22 History aerosol inhaler (ProAir HFA) sacubitril 97 mg-valsartan 103 mg 1 tablet BID 03/13/22 03/27/22 History tablet (Entresto) chlorhexidine gluconate 4 % 1 applic topical ONCE #237 mL 03/16/22 03/27/22 Rx topical liquid (Hibiclens) Patient hx anesthesia problems: none Family hx anesthesia problems: none Results Review: All pre-operative results and documents have been reviewed as part of the pre-operative evaluation. [facility] Past Medical History Medical History Anxiety Bilateral hip pain Cardiomyopathy 05/2021 EF 40-45% Carpal tunnel syndrome Coronary artery calcification 05/2021 cardiac catheterization showed no significant coronary disease. Diet-controlled diabetes mellitus Dyslipidemia Gastroesophageal reflux disease Gout Hammer toe Hepatic steatosis HLD (hyperlipidemia) HTN (hypertension) Hyperlipidemia IFG (impaired fasting glucose) Intraductal papillary mucinous neoplasia Left bundle branch block Left bundle branch block Metabolic syndrome Mitral regurgitation Pancreatic cyst Primary osteoarthritis of left knee Primary osteoarthritis of right knee Right clavicle fracture RLS (restless legs syndrome) Sleep apnea Uses CPAP Tricuspid regurgitation Type 2 diabetes mellitus with diabetic neuropathy, without long-term current use of insulin Vitamin D deficiency, unspecified Surgical History Surgical History H/O cataract extraction Bilateral eyes June 2020 H/O: hysterectomy History of orthopedic surgery Right toe surgery Hx of tonsillectomy Presence of right artificial knee joint Family History Family History Mother Cerebrovascular a
[2022-03-27] MEDS: LACTATED RINGERS 1,000 ML 30 ML IV CONT ×2 (10:30→14:38)
[2022-03-27 10:53] LABS: Glucose Point of Care 110 mg/dl (65-105)
[2022-03-27] MEDS: TRANEXAMIC ACID 1,000MG/ISO100 1,000 MG/100 ML BAG 200 MG IVPB (11:00)
[2022-03-27] MEDS: ACETAMINOPHEN 500 MG TABLET 1000 MG PO (11:00)
--- NOTE | 2022-03-27 11:58 | WPDANESPNB ---
Anes - Peripheral Nerve Block Date/Time: 03/27/22 11:58 I have discussed with the patient/family/POA the placement of a peripheral nerve block for post-operative pain management, including associated risks, benefits, complications, and side effects. Alternative methods of post-operative analgesia were detailed. Questions were solicited and answers provided to the satisfaction of the patient/family/POA. Time-Out: A pre-procedural Time-Out was completed immediately before starting the procedure and confirmed: Patient Identification, Site, Procedure, Patient Position and the Availability of Requisite Equipment. Clinical Indications: Acute post-operative pain management requested by the operative surgeon. Nerve Block Insertion Note Anes-nerve block: adductor canal left Patient position: supine Skin prep: chlorhexidine Needle: 22 gauge, stimulating, insulated echogenic needle. Needle length: 80 mm Technique: ultrasound Injectate: bupivacaine 0.5% with epi 5 mcg/ml (30cc - no epi) Observations: tolerated well Complications: none Procedure start time:: 1148 Procedure end time:: 1151
--- NOTE | 2022-03-27 12:06 | WPDHPUPDATE1 ---
History and Physical Update Update Date/Time: 03/27/22 12:06 History and Physical has been reviewed, including an updated exam of the patient. There are NO changes in the patient's condition. Risks, benefits, and alternatives have been discussed and questions answered. Patient agrees to proceed with procedure.
[2022-03-27] MEDS: ceFAZolin 2 GM/D5W 50 ML 2 GM/50 ML BAG IVPB ×2 (12:24→20:12)
[2022-03-27] MEDS: GENTAMICIN BONE CEMENT REFOBACIN 1 EACH TOPICAL (13:31)
[2022-03-27] MEDS: TRANEXAMIC ACID 1,000 MG/10 ML AMPUL 1000 MG IV PUSH (13:50)
--- NOTE | 2022-03-27 14:46 | W.PM.PROC2 ---
Procedure Note - Detailed Date of Procedure 03/27/22 Pre-op Diagnosis left knee OA Post-op Diagnosis Same Procedure Performed L TKA Surgeon Declan Del Rio MD Anesthesia General Description of Procedure THE LEFT KNEE WAS PREPPED AND DRAPED IN THE STERILE FASHION. THERE WAS A 10 DEGREE FLEXION CONTRACTURE. A MIDLINE SKIN INCISION WAS MADE. A MEDIAL PARAPATELLAR ARTHROTOMY WAS MADE. THE PATELLA WAS EVERTED. THERE WAS TRICOMPARTMENT DJD. THERE WAS MINIMAL PATELLA DJD. AN INTRAMEDULLARY VAUGHN WAS PLACED IN THE FEMUR. A DISTAL FEMORAL CUT WAS MADE IN 5 DEGREES OF VALGUS REMOVING APPROXIMATELY 10 MM OF BONE FROM THE DISTAL FEMUR. THE FEMUR WAS SIZED TO 62.5. A 62.5 FEMORAL CUTTING BLOCK WAS PLACED IN 3 DEGREES OF EXTERNAL ROTATION AND IN ALIGNMENT WITH KHOI'S LINE AND THE TRANSEPICONDYLAR AXIS. ANTERIOR POSTERIOR AND CHAMFER CUTS WERE MADE. THE CUTS WERE EXCELLENT. NEXT AN INTRAMEDULLARY CUTTING GUIDE WAS PLACED IN THE TIBIA. A TRANS TIBIAL CUT WAS MADE ALONG THE LONG AXIS OF THE TIBIA. APPROXIMATELY 10 MM OF BONE WAS REMOVED FROM THE HIGH SIDE OF THE TIBIA. THE TIBIA WAS THEN PLANED TO A SMOOTH SURFACE. POSTERIOR FEMORAL OSTEOPHYTES WERE REMOVED FROM THE FEMORAL CONDYLES. A 71 TIBIAL TRIAL WAS PLACED IN ALIGNMENT WITH THE 1/3 MEDIAL ASPECT OF THE TIBIAL TUBERCLE. THEN A 62.5 FEMORAL TRIAL COMPONENT WAS PLACED. BOTH HAD EXCELLENT FITS. EVENTUALLY A 10 MM POLYETHYLENE TRIAL COMPONENT WAS PLACED. THE KNEE WAS TAKEN THROUGH A RANGE OF MOTION. THE KNEE CAME OUT TO FULL EXTENSION. THERE WAS NO ABNORMAL TILT TO THE PATELLA. THERE WAS GOOD A/P AND VARUS/VALGUS STABILITY. THERE WAS NO EXCESSIVE ROLL BACK WITH FLEXION. THE TRIAL COMPONENTS WERE REMOVED. THEN A 62.5 FEMORAL COMPONENT AND 71 TIBIAL COMPONENT WITH A 10 POLYETHYLENE COMPONENT WERE CEMENTED INTO PLACE. ONCE THE CEMENT WAS HARD THE KNEE WAS TAKEN THROUGH A ROM AGAIN AND FOUND TO BE STABLE WITH NO PATELLA TILT NO EXCESSIVE ROLL BACK WITH FLEXION AND GOOD STABILITY WITH COMPLETE AND FULL EXTENSION. THE KNEE WAS IRRIGATED WITH STERILE BETADINE AND WATER FOR ABOUT 3 MINUTES. THE BLEEDERS WERE CAUTERIZED. THE ARTHROTOMY WAS REPAIRED WITH NUMBER 1 VICRYL. THE SUB CUTANEOUS LAYER WITH 2-0 VICRYL AND THE SKIN WITH CASSANDRA. THE WOUND WAS WASHED AND A STERILE DRESSING WAS APPLIED. PATIENT WAS EXTUBATED. Estimated Blood Loss -150.0 Pathology None sent Complications No immediate complications Condition Stable Disposition PACU
[2022-03-27 14:52] LABS: Glucose Point of Care 135 mg/dl (65-105)
[2022-03-27] MEDS: fentaNYL CITRATE INJ (*CRX) 100 MCG/2 ML VIAL 25 MCG IV PUSH ×3 (15:00→15:18)
--- NOTE | 2022-03-27 15:55 | SUR.PHASEI ---
Patient meets PACU discharge criteria, unit bed unavailable at this time. Patient placed in extended recovery status.
--- NOTE | 2022-03-27 18:13 | ADMGEN ---
This patient, Scarlett Gómez, was admitted to Medical Room 252-01. Patient/family oriented to hospital policies and general routines including ID bracelet, bed and alarms, visiting hours, pain management, procedures, bathroom and other care routines, personal items, smoking policy, room service/diet, and visiting hours. Information on how to activate the Rapid Response Team has been discussed. Patient/Family are encouraged to report perceived risks to care and to ask questions if they do not understand what they are told or what they should do.
[2022-03-27 18:27] LABS: Glucose Point of Care 159 mg/dl (65-105)
[2022-03-27] MEDS: SACUBITRIL/VALSARTAN 97-103 MG TABLET 1 TAB BY MOUTH (20:12)
[2022-03-27] MEDS: PRAMIPEXOLE 0.25 MG TABLET PO (20:12)
[2022-03-27] MEDS: ASPIRIN 325 MG ENTERIC TABLET PO (20:12)
[2022-03-27] MEDS: PRAMIPEXOLE 0.5 MG TABLET PO (20:12)
[2022-03-27] MEDS: SENNA/DOCUSATE SODIUM TABLET 2 TAB PO (20:13)
[2022-03-27] MEDS: metFORMIN HCL XR 500 MG TAB.SR.24H PO (20:13)
[2022-03-27] MEDS: carvediloL 6.25 MG TABLET PO (20:13)
[2022-03-27] MEDS: FAMOTIDINE 20 MG TABLET PO (20:13)
[2022-03-27] MEDS: CELECOXIB 200 MG CAPSULE PO (20:13)
[2022-03-27] MEDS: oxyCODONE/ACETAMINOPHEN (*CRX) 5-325 MG TABLET 1 TABLET PO (22:45)
[2022-03-28] VITALS (7 sets, daily range): BP systolic 107–129; BP diastolic 47–53; PULSE 73–92; RESP 16–18; TEMP 36.3–36.7; O2SAT 92–95
[2022-03-28] MEDS: ceFAZolin 2 GM/D5W 50 ML 2 GM/50 ML BAG IVPB ×2 (04:00→12:23)
[2022-03-28 05:20] LABS: Basophils Percent Auto 0.1 % (0.2-1.2); Hematocrit 33.1 % (37.0-47.0); Hemoglobin 10.3 g/dL (12.0-15.0); Immature Granulocyte Absolute 0.13 K/mm3 (0.00-0.031); Immature Granulocyte Percent A 0.8 % (0-0.5); Lymphocytes Absolute Auto 1.45 K/mm3 (0.9-3.2); Lymphocytes Percent Auto 9.3 % (18.3-44.2); Mean Corpuscular HGB Conc 31.1 g/dl (32-36); Mean Corpuscular Hemoglobin 26.7 pg (26-34); Mean Corpuscular Volume 85.8 fl (80-100); Mean Platelet Volume 11.3 fl (7.4-10.4); Monocytes Absolute Auto 0.8 K/mm3 (0.1-0.6); Monocytes Percent Auto 5.3 % (2.6-8.5); Neutrophils Absolute Auto 13.2 K/mm3 (1.3-6.7); Neutrophils Percent Auto 84.5 % (45.5-73.1); Platelet Count Result 201 k/mm3 (150-375); Red Blood Count 3.86 M/mm3 (4.2-5.4); Red Cell Distribution Width 14.5 % (11.5-14.5); White Blood Count 15.6 K/mm3 (4.5-10.0)
[2022-03-28 05:34] LABS: Anion Gap 7 mmol/L (8-16); Blood Urea Nitrogen 24 mg/dL (7-17); Calcium 8.2 mg/dL (8.4-10.2); Carbon Dioxide 25 mmol/L (22-30); Chloride 103 mmol/L (98-107); Estimated CRCL calculation 65 ml/min; Estimated Glomerular Filt Rate > 60; Glucose 131 mg/dL (65-110); Sodium 135 mmol/L (137-145)
[2022-03-28 08:51] LABS: Glucose Point of Care 125 mg/dl (65-105)
[2022-03-28] MEDS: TORSEMIDE 20 MG TABLET PO (11:59)
[2022-03-28] MEDS: CITALOPRAM HYDROBROMIDE 20 MG TABLET PO (11:59)
[2022-03-28] MEDS: FAMOTIDINE 20 MG TABLET PO (11:59)
[2022-03-28] MEDS: SENNA/DOCUSATE SODIUM TABLET 2 TAB PO (11:59)
[2022-03-28] MEDS: SIMVASTATIN 20 MG TABLET PO (12:00)
[2022-03-28] MEDS: PANTOPRAZOLE 40 MG TABLET PO (12:00)
[2022-03-28] MEDS: carvediloL 6.25 MG TABLET PO (12:00)
[2022-03-28] MEDS: metFORMIN HCL XR 500 MG TAB.SR.24H PO (12:02)
[2022-03-28] MEDS: CELECOXIB 200 MG CAPSULE PO (12:02)
[2022-03-28] MEDS: CALCIUM CARBONATE (OSCAL) 500 MG TABLET PO (12:02)
[2022-03-28] MEDS: MULTIVITAMINS THERAPEUTIC TAB (*BKC) 1 TABLET PO (12:02)
[2022-03-28] MEDS: SACUBITRIL/VALSARTAN 97-103 MG TABLET 1 TAB BY MOUTH (12:03)
[2022-03-28] MEDS: polyethylene glycoL 3350 17 GM POWD.PACK PO (12:04)
[2022-03-28] MEDS: CHOLECALCIFEROL 1,000 UNITS TABLET 1000 UNITS PO (12:04)
[2022-03-28 12:08] LABS: Glucose Point of Care 157 mg/dl (65-105)
[2022-03-28] MEDS: ASPIRIN 325 MG ENTERIC TABLET PO (12:33)
[2022-03-28] MEDS: oxyCODONE/ACETAMINOPHEN (*CRX) 5-325 MG TABLET 2 TABLET PO (13:04)
--- NOTE | 2022-03-28 14:44 | WPDANESPN ---
Anes - Prog Note Post-Op Date/Time: 03/28/22 14:44 Cardiovascular status: normal Respiratory status: normal Airway patency: baseline Mental status: baseline Post-Op hydration status: normal Vital Signs: Last Vital Signs Temp 36.3 C L 03/28/22 10:46 Pulse 91 03/28/22 12:00 Resp 16 03/28/22 10:46 BP 129/47 L 03/28/22 11:50 Pulse Ox 94 03/28/22 11:50 O2 Del Method Room Air 03/28/22 08:59 O2 Flow Rate 2 03/27/22 20:00 Pain Score (VAS): 04/06 I/O: Intake & Output 03/27/22 03/28/22 03/28/22 23:59 07:59 15:59 Intake Total 400 350 480 Output Total 500 Balance 400 -150 480 Laboratory Tests 03/28/22 04:56 03/28/22 04:56 03/27/22 03/27/22 03/28/22 14:49 18:24 04:56 WBC 15.6 H RBC 3.86 L Hgb 10.3 L Hct 33.1 L MCV 85.8 MCH 26.7 MCHC 31.1 L RDW 14.5 Plt Count 201 MPV 11.3 H Immature Gran % (Auto) 0.8 H Neut % (Auto) 84.5 H Lymph % (Auto) 9.3 L Carbon % (Auto) 5.3 Eos % (Auto) 0.0 Baso % (Auto) 0.1 L Lymph # (Auto) 1.45 Carbon # (Auto) 0.8 H Eos # (Auto) 0.0 Baso # (Auto) 0.0 Abs Immat Gran (auto) 0.13 H Absolute Neuts (auto) 13.2 H Absolute Nucleated RBC 0.0 Nucleated RBC % 0.0 Sodium Potassium Chloride Carbon Dioxide Anion Gap BUN Creatinine Estim Creat Clear Calc Estimated GFR Glucose POC Capillary Glucose 135 H 159 H Calcium 03/28/22 03/28/22 03/28/22 04:56 08:37 11:59 WBC RBC Hgb Hct MCV MCH MCHC RDW Plt Count MPV Immature Gran % (Auto) Neut % (Auto) Lymph % (Auto) Carbon % (Auto) Eos % (Auto) Baso % (Auto) Lymph # (Auto) Carbon # (Auto) Eos # (Auto) Baso # (Auto) Abs Immat Gran (auto) Absolute Neuts (auto) Absolute Nucleated RBC Nucleated RBC % Sodium 135 L Potassium 4.0 Chloride 103 Carbon Dioxide 25 Anion Gap 7 L BUN 24 H Creatinine 0.70 Estim Creat Clear Calc 65 Estimated GFR > 60 Glucose 131 H POC Capillary Glucose 125 H 157 H Calcium 8.2 L Post-procedural complaints: none Patient Feedback: Patient satisfied with anesthetic care.
--- NOTE | 2022-03-28 15:26 | PC.NURSE ---
On 03/28/22, the student, [Marion Reis], provided care and completed [facility] documentation on this patient. I have reviewed the student's documentation and agree with the findings.
--- NOTE | 2022-03-28 15:55 | PM.PNORT ---
Progress Note: A&P Assessment and Plan (1) Left knee DJD: Code(s): M17.12 - Unilateral primary osteoarthritis, left knee Status: Acute Assessment and Plan: POD 1 DOING WELL. OK TO DC HOME F/U IN 3 WEEKS Subjective Subjective Date/Time Seen: 03/28/22 15:55 POD 1 DOING WELL, NO CALF PAIN. 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 HOMANS SIGN CALF SOFT NON TENDER Objective Data Vital Signs Vital Signs: Vital Signs - 24 hr 03/27/22 16:25 03/27/22 16:55 03/27/22 17:25 Temperature Pulse Rate 94 91 89 Respiratory Rate 16 12 16 Blood Pressure 139/69 139/73 134/74 Pulse Oximetry 96 96 94 Oxygen Delivery Nasal Cannula Nasal Cannula Nasal Cannula Oxygen Flow Rate 2 2 2 03/27/22 17:55 03/27/22 18:55 03/27/22 18:15 Temperature 36.5 C Pulse Rate 92 95 Respiratory Rate 12 16 Blood Pressure 142/71 H 135/60 Pulse Oximetry 95 94 91 Oxygen Delivery Nasal Cannula Nasal Cannula Oxygen Flow Rate 2 2 03/27/22 18:30 03/27/22 19:00 03/27/22 20:13 Temperature 36.5 C 36.4 C L Pulse Rate 92 88 72 Respiratory Rate 16 16 Blood Pressure 123/56 L 127/50 L Pulse Oximetry 98 95 Oxygen Delivery Oxygen Flow Rate 03/27/22 20:00 03/27/22 20:00 03/28/22 00:38 Temperature 36.6 C 36.4 C Pulse Rate 89 80 Respiratory Rate 18 18 Blood Pressure 125/57 L 107/48 L Pulse Oximetry 95 97 95 Oxygen Delivery Nasal Cannula Oxygen Flow Rate 2 03/27/22 23:20 03/28/22 05:08 03/28/22 07:31 Temperature 36.5 C Pulse Rate 79 73 Respiratory Rate 16 16 Blood Pressure 110/51 L Pulse Oximetry 94 94 Oxygen Delivery CPAP Room Air Oxygen Flow Rate 03/28/22 08:12 03/28/22 08:59 03/28/22 10:46 Temperature 36.3 C L Pulse Rate 92 Respiratory Rate 16 Blood Pressure 122/53 L Pulse Oximetry 95 95 Oxygen Delivery Room Air Room Air Oxygen Flow Rate 03/28/22 12:00 03/28/22 11:50 03/28/22 14:57 Temperature 36.7 C Pulse Rate 91 91 88 Respiratory Rate 16 Blood Pressure 129/47 L 129/52 L Pulse Oximetry 94 92 Oxygen Delivery Oxygen Flow Rate Intake/Output Intake/Output: Intake & Output 03/25/22 03/26/22 03/27/22 03/28/22 23:59 23:59 23:59 23:59 Intake Total 550 830 Output Total 500 Balance 550 330 Meds/Results Medications: Active Medications Generic Name Dose Route Start Last Admin Trade Name Freq PRN Reason Stop Dose Admin Acetaminophen 1,000 mg 03/27/22 18:00 Acetaminophen 500 Mg Tablet PO Q6H PRN Pain Rated 1-3 Albuterol 2 puff 03/27/22 18:00 Albuterol Sulfate (*Sp) Aerosol 1 Puff INHALATION QID PRN Wheezing Aspirin 325 mg 03/27/22 21:00 03/28/22 12:33 Aspirin 325 Mg Enteric Tablet PO 325 mg Q12HR KIMMY Administration Calcium Carbonate 500 mg 03/28/22 09:00 03/28/22 12:02 Calcium Carbonate (Oscal) 500 Mg Tablet PO 500 mg QAM KIMMY Administration Carvedilol 6.25 mg 03/27/22 18:00 03/28/22 12:00 Carvedilol 6.25 Mg Tablet PO 6.25 mg BID KIMMY Administration Celecoxib 200 mg 03/27/22 18:00 03/28/22 12:02 Celecoxib 200 Mg Capsule PO 200 mg BIDWM KIMMY Administration Citalopram Hydrobromide 20 mg 03/28/22 09:00 03/28/22 11:59 Citalopram Hydrobromide 20 Mg Tablet PO 20 mg DAILY KIMMY Administration Diazepam 5 mg 03/27/22 18:00 Diazepam (*Crx) 5 Mg Tablet PO Q8H PRN Spasms Diphenhydramine HCl 25 mg 03/27/22 18:00 Diphenhydramine Hcl Inj 50 Mg/Ml Vial IV PUSH Q6H PRN Itching Famotidine 20 mg 03/27/22 21:00 03/28/22 11:59 Famotidine 20 Mg Tablet PO 20 mg Q12HR KIMMY Administration Metformin HCl 500 mg 03/27/22 18:00 03/28/22 12:02 Metformin Hcl Xr 500 Mg Tab.Sr.24h PO 500 mg BID KIMMY Administration Multivitamins Therapeutic 1 tablet 02/01/23 09:00 03/28/22 12:02 Multivitamins Therapeutic Tab (*Bkc) PO 1 tablet DAILY KIMMY Administr
--- NOTE | 2022-03-28 15:59 | PM.DS ---
DS: Admitting Diagnosis Discharge Date 03/28/22 Admitting Diagnosis LEFT KNEE DJD DS: Discharge Diagnosis Discharge Diagnosis (1) Left knee DJD: Code(s): M17.12 - Unilateral primary osteoarthritis, left knee Status: Acute DS: Summary Hospital Course Reason for hospitalization: LEFT TKA Hospital Course: PATIENT WAS ADMITTED S/P TOTAL KNEE ARTHROPLASTY FOR POSTOPERATIVE MEDICAL MANAGEMENT, PAIN CONTROL AND MOBILIZATION WITH PHYSICAL AND OCCUPATIONAL THERAPY. THE PATIENT PROGRESSED WELL WITH PT/OT. LABS AND VITALS REMAINED STABLE AND PAIN WELL CONTROLLED. THE PATIENT HAS BEEN CLEARED TO BE DISCHARGED HOME. FOLLOW UP APPOINTMENT SCHEDULED. DISCHARGE INSTRUCTIONS DISCUSSED AT LENGTH WITH THE PATIENT. MEDICATIONS REVIEWED. Status at Discharge Cognitive/behavioral status at discharge: STABLE Functional status at discharge: uses cane/walker Time Spent with Patient Time attestation: Total time spent providing and/or coordinating discharge services: DS: Data Data Completed and Pending Labs on day of discharge: Labs from last 24 hours 03/28/22 03/28/22 03/28/22 11:59 08:37 04:56 WBC RBC Hgb Hct MCV MCH MCHC RDW Plt Count MPV Immature Gran % (Auto) Neut % (Auto) Lymph % (Auto) Becker % (Auto) Eos % (Auto) Baso % (Auto) Lymph # (Auto) Becker # (Auto) Eos # (Auto) Baso # (Auto) Abs Immat Gran (auto) Absolute Neuts (auto) Absolute Nucleated RBC Nucleated RBC % Sodium 135 L Potassium 4.0 Chloride 103 Carbon Dioxide 25 Anion Gap 7 L BUN 24 H Creatinine 0.70 Estim Creat Clear Calc 65 Estimated GFR > 60 Glucose 131 H POC Capillary Glucose 157 H 125 H Calcium 8.2 L 03/28/22 03/27/22 04:56 18:24 WBC 15.6 H RBC 3.86 L Hgb 10.3 L Hct 33.1 L MCV 85.8 MCH 26.7 MCHC 31.1 L RDW 14.5 Plt Count 201 MPV 11.3 H Immature Gran % (Auto) 0.8 H Neut % (Auto) 84.5 H Lymph % (Auto) 9.3 L Becker % (Auto) 5.3 Eos % (Auto) 0.0 Baso % (Auto) 0.1 L Lymph # (Auto) 1.45 Becker # (Auto) 0.8 H Eos # (Auto) 0.0 Baso # (Auto) 0.0 Abs Immat Gran (auto) 0.13 H Absolute Neuts (auto) 13.2 H Absolute Nucleated RBC 0.0 Nucleated RBC % 0.0 Sodium Potassium Chloride Carbon Dioxide Anion Gap BUN Creatinine Estim Creat Clear Calc Estimated GFR Glucose POC Capillary Glucose 159 H Calcium Procedures/Treatments: L TKA Discharge Plan Discharge Patient Disposition: Home Health Service Discharge Instructions: per care coordination, [facility] has been arranged for RN, PT/OT evaluations and treatment. [facility] can be reached at [phone]. [facility] will contact you for fist visit arrangements. Patient Instructions: Antibiotic Form, Pain Management (ED), Knee Replacement (DC) Stand Alone Forms: General Discharge Information Follow-up/Referrals: Declan Del Rio MD [Physician] - 3 Weeks Discharge Medications: New aspirin 325 mg Tablet,Delayed Release (Dr/Ec) 325 mg PO DAILY 21 Days Qty: 21 0RF hydrocodone-acetaminophen 5-325 mg tablet 1 tablet PO Q12H PRN (Reason: pain) Qty: 30 0RF Continued carvedilol 6.25 mg tablet 6.25 mg PO BID torsemide 20 mg tablet 20 mg PO DAILY calcium carbonate 600 mg calcium (1,500 mg) Tablet 600 mg PO DAILY citalopram 20 mg tablet 20 mg PO DAILY Label Comments: QAM albuterol sulfate [ProAir HFA] 90 mcg/actuation Hfa Aerosol Inhaler 2 puff INHALATION QID PRN (Reason: Wheezing) Entresto 97-103 mg tablet 1 tablet BID metformin 500 mg tablet extended release 24 hr 500 mg PO BID Qty: 180 3RF omeprazole 40 mg capsule,delayed release(DR/EC) 40 mg PO DAILY Qty: 90 3RF simvastatin 20 mg tablet 20 mg PO DAILY Qty: 90 3RF pramipexole 1.5 mg tablet 0.75 mg PO HS Qty: 90 3RF (DME) Fr
== END 2022-03-28 16:55 | disposition home health service (06) ==
LOC: ANHSURGERY 09:53 → ANH2MED 18:01
PROVIDERS: PCP Family Medicine; Visit Provider Orthopaedic Surgery
PROC: (CPT 27447; principal; 2022-03-27 12:00)
DX: M17.12 Unilateral primary osteoarthritis, left knee (principal); G89.18 Other acute postprocedural pain; I42.9 Cardiomyopathy, unspecified; I10 Essential (primary) hypertension; E78.5 Hyperlipidemia, unspecified; K76.0 Fatty (change of) liver, not elsewhere classified; M10.9 Gout, unspecified; G47.30 Sleep apnea, unspecified; E11.40 Type 2 diabetes mellitus with diabetic neuropathy, unspecified; E55.9 Vitamin D deficiency, unspecified; G25.81 Restless legs syndrome; F41.9 Anxiety disorder, unspecified; Z79.84 Long term (current) use of oral hypoglycemic drugs; Z79.82 Long term (current) use of aspirin; Z79.51 Long term (current) use of inhaled steroids; E66.9 Obesity, unspecified; Z68.37 Body mass index [BMI] 37.0-37.9, adult
CPT/HCPCS: 27447; 64447; 36415; 73560; 80048; 82948; 85025; 86850; 86900; 86901; 97110; 97116; 97161; 97165; 97535; A9270; C1713; C1776; J0171; J0690; J1100; J1170; J1885; J2270; J2405; J2704; J2795; J3010; J7120

== ENCOUNTER 2022-05-24 08:48 | Outpatient (CLI) | payer MEDICARE, OTHER, SELFPAY ==
[2022-05-24 18:42] LABS: Alanine Aminotransferase 17 U/L (6-35); Albumin Level 4.1 g/dL (3.5-5.1); Alkaline Phosphatase 80 U/L (38-126); Anion Gap 7 mmol/L (8-16); Aspartate Amino Transferase 31 U/L (14-36); Bilirubin,Total 0.9 mg/dL (0.2-1.3); Blood Urea Nitrogen 29 mg/dL (7-17); Carbon Dioxide 26 mmol/L (22-30); Chloride 105 mmol/L (98-107); Estimated Glomerular Filt Rate > 60; Glucose 96 mg/dL (65-110); Potassium 4.3 mmol/L (3.4-5.0); Sodium 138 mmol/L (137-145)
[2022-05-24 19:21] LABS: Hemoglobin A1C 5.7 % (<5.7)
== END 2022-05-24 08:49 | disposition home or self-care (01) ==
LOC: ANHGOSHLAB 08:50
PROVIDERS: PCP Family Medicine; Visit Provider Family Medicine
DX: E11.40 Type 2 diabetes mellitus with diabetic neuropathy, unspecified (principal)
CPT/HCPCS: 36415; 80053; 83036

== ENCOUNTER 2022-05-28 09:00 | Outpatient (RCR) | payer MEDICARE, OTHER, SELFPAY ==
--- NOTE | 2022-05-01 09:22 | PTOPEVAL1 ---
Assessment and note entered by Kailyn Vera DPT Evaluation Information Assessment Status Evaluation Subjective Information Pt had TKA on 03/27/22. Had home health PT for about 3 weeks. Highest pain in last week 210, lowest 0/10. Still having difficulty navigating stairs (has a basement). Has not yet vacuumed or done much heavy activity like yard work. RTMD is not until August. Previously was able to navigate to basement and do other activities without limitation. Reported Pain Level Pain Score 0: Self Report Assessment PT Clinical Summary The patient is presenting to skilled therapy s/p L TKA on 03/27/22. She presents with mild range of motion impairments, decreased strength, and impaired balance, gait, and stair navigation. These impairments are contributing to her pain and difficulty with typical activities including doing the stairs to her basement. She will benefit from therapy to address these impairments and safely return to prior level of function. Plan of Care Interventions Electrical Stimulation,Gait Training,Hot Pack/Cold Pack,Manual Therapy,Neuro Re-education,Patient/ Caregiver Education,Therapeutic Activities, Therapeutic Exercise,Self-Care/Home Management PT Services Indicated Yes Treatment Frequency and 2 times a week for 4 weeks Duration These treatments will address the objective and functional deficits as defined above. The patient will be advanced safely and appropriately in order for the patient to progress towards his/her prior level of function. Additional exercises will be introduced and as well as a comprehensive home exercise program upon discharge, if needed, ?to ensure carryover of functional gains achieved in the clinic. This treatment plan has been reviewed and agreement upon by the patient.
--- NOTE | 2022-05-28 09:27 | PTOPDC ---
Assessment and note entered by Daysi Sevilla, PT, DPT Evaluation Information Assessment Status Discharge Diagnosis L TKA Onset 03/27/22 Subjective Information Pt states overall she is doing great. She reports no pain and states she she can do whatever she wants to or needs to. Pt reports 99% improvement in her overall symptoms . Reported Pain Level Pain Score 0: Self Report Assessment PT Clinical Summary Scarlett presents to therapy today for her progress report following 7 visits of skilled therapy to treat her L TKA. Today she demonstrates ROM, strength, and stability that is equal to her uninvolved side. She can ambulation and navigate stairs without major deviations. She has met nearly all of her therapy goals and reports no functional limitations at this time. She will be discharged with instructions to continue her HEP upon discharge. Plan of Care PT Services Indicated No
== END 2022-05-28 11:07 | disposition home or self-care (01) ==
LOC: ANHGOSHPT 09:00
PROVIDERS: PCP Family Medicine; Visit Provider Orthopaedic Surgery
DX: Z47.1 Aftercare following joint replacement surgery (principal); Z96.652 Presence of left artificial knee joint
CPT/HCPCS: 97110; 97112; 97116; 97140; 97161; 97530

== ENCOUNTER 2022-09-27 08:02 | Outpatient (CLI) | payer MEDICARE, OTHER, SELFPAY ==
[2022-09-27 13:13] LABS: Alanine Aminotransferase 18 U/L (6-35); Albumin Level 4.1 g/dL (3.5-5.1); Alkaline Phosphatase 77 U/L (38-126); Anion Gap 5 mmol/L (8-16); Aspartate Amino Transferase 34 U/L (14-36); Bilirubin,Total 0.5 mg/dL (0.2-1.3); Blood Urea Nitrogen 30 mg/dL (7-17); Calcium 9.1 mg/dL (8.4-10.2); Carbon Dioxide 30 mmol/L (22-30); Chloride 101 mmol/L (98-107); Estimated Glomerular Filt Rate > 60; Glucose 120 mg/dL (65-110); Potassium 4.3 mmol/L (3.4-5.0); Sodium 136 mmol/L (137-145)
[2022-09-27 14:03] LABS: Hemoglobin A1C 6.5 % (<5.7)
== END 2022-09-27 08:03 | disposition home or self-care (01) ==
LOC: ANHGOSHLAB 08:06
PROVIDERS: PCP Family Medicine; Visit Provider Family Medicine
DX: E11.40 Type 2 diabetes mellitus with diabetic neuropathy, unspecified (principal)
CPT/HCPCS: 36415; 80053; 83036

== ENCOUNTER 2022-09-28 13:30 | Outpatient (RCR) | payer MEDICARE, OTHER, SELFPAY ==
--- NOTE | 2022-09-11 14:56 | OPREHPOC ---
Outpatient Therapy Plan of Care This is a Multidisciplinary Plan of Care that may contain components documented by all disciplines (PT, OT, and ST.) PT Problem 1 PT Problem #1 Knowledge Deficit PT Goal 1 Goal 1* pt demonstrate correct manual lymph drainage for LE's 2* pt indep with donning/doffing compression garments for legs 3* pt voice understanding of wearing schedule for garments and skin care PT Problem 2 PT Problem #2 Impaired Lymphatic System PT Goal 1 Goal 1* circumferential measurement of L LE, up to 64 cm from bottom of foot: 650 cm no fibrotic tissue over lower leg 2* R 3* L 4* no edema over dorsum of L foot 5* visible L medial and lateral malleoli no redness over lower leg 6* R 7* L
--- NOTE | 2022-09-11 14:56 | PTOPEVAL1 ---
Assessment and note entered by Yue Da Silva, PT Evaluation Information Assessment Status Evaluation Diagnosis edema Leg Onset past year Subjective Information chronic issues with swelling in legs L > R, gradual increase and now hurting in L leg, previously did not have pain in leg; ACTIVITY: indep with all home and self care tasks cares for 22 yr old grandson-blind, developmentally delayed and lives with her- he is ambulatory; active and gardens; Wear compression knee high garments both legs: 20- 30 mmHg; reports they are comfortable but swelling does not change with them; sometimes tight around ankle and have to take off; Reported Pain Level Pain Score Self Report Additional Pain Score Comments sharp pain over top of ankle, burning in anterior marin pain range in the past week 2-8/10; increase pain end of day after being active; sensative to touch of clothing over leg decrease pain with elevation Assessment PT Clinical Summary Scarlett has the diagnosis of edema. Both legs have edema, L is more than the R. L leg causes her pain,with recent TKR 6 months ago and cellulitis about 1 month ago. Her medical history includes: R and L TKR, diabetes, cardiomyopathy, HTN, neuropathy of legs, PVD and a spot on her pancreas that is monitored. She is active and wears compression knee high socks 20-30 mmHg, that she bought over the counter without being measured for them. States they help some, but sometimes hurt her legs and ankles and have to take off, and there is a tight ring indentation on her leg. With the evaluation: both legs have tissue changes, L < R; the L leg has a tender, red area over medial lower leg and more varicose veins than her R leg; L medial and lateral malleoli are edematous and dorsum of foot is edematous.; with the circumferential measurements of her legs, L is 25.8 cm larger than her R leg. Skilled PT services are indicated for complete decongestive therapy: [facility]
--- NOTE | 2022-09-28 14:14 | PTOPDC ---
Assessment and note entered by Yue Da Silva, PT Evaluation Information Assessment Status Discharge Diagnosis edema Leg Onset past year Subjective Information Scarlett reports: compression sock are comfortable; is using the velcro ankle and foot piece at night ; have been doing self massage; elevating leg in the afternoon, but today-- have been up all day and not propped it up; in the AM ankle is down and same size as the other ankle; understands everything and is ready to be finished with therapy. Reported Pain Level Pain Score Self Report Additional Pain Score Comments sore over front of lower leg and top of ankle Assessment PT Clinical Summary Scarlett has received 7 PT sessions. Compared to the initial evaluation: circumferential measurement of her L leg has decreased by 7.4 cm today--she has been up and on her feet all day, with more edema over ankle, but with the best measurement decreased by 16.5 cm; when she wakes up in the AM, states her ankle is decreased and when she is up, it swells more; the compression calf high garment is comfortable and fits her well; Education completed for self care and management of lymphedema-- skin care, garments, self massage, exercises. The goals were achieved, except the circumferential measurement of her leg. Discharge PT services. Plan of Care PT Services Indicated No
== END 2022-10-01 15:01 | disposition home or self-care (01) ==
LOC: ANHPT 13:30
PROVIDERS: PCP Family Medicine; Visit Provider Family Medicine
DX: R60.0 Localized edema (principal)
CPT/HCPCS: 97140; 97161; 97530

== ENCOUNTER 2022-10-31 14:37 | Outpatient (CLI) | payer MEDICARE, OTHER, SELFPAY ==
--- NOTE | ~2022-10-31 | US_ITS ---
EXAMINATION: US soft tissue LE LT DATE: 10/31/2022 15:30 INDICATION: Left thigh pain. TECHNIQUE: Multiple grayscale and Doppler ultrasound images of the left lower limb were obtained. COMPARISON: None FINDINGS: There is no abnormality in the patient's area of concern in left thigh. No mass. IMPRESSION: 1. No abnormality in the patient's area of concern in left thigh. Reviewed, dictated and finalized at location E.
== END 2022-10-31 14:38 | disposition home or self-care (01) ==
LOC: ANHIMG 14:45
PROVIDERS: PCP Family Medicine; Visit Provider Family Medicine
DX: M79.652 Pain in left thigh (principal)
CPT/HCPCS: 76882

== ENCOUNTER 2023-01-23 08:19 | Outpatient (CLI) | payer MEDICARE, OTHER, SELFPAY ==
[2023-01-23 14:14] LABS: Appearance Urine Turbid (Clear); Bacteria Urine 2+ /hpf; Bilirubin Urine 1+ (Negative); Blood Urine Negative (Negative); Color Urine Dark Yellow (Yellow); Glucose Urine UA Negative (Negative); Ketones Urine Trace mg/dL (Negative); Leukocyte Esterase Ur Negative LEU/UL (NEGATIVE); Nitrate Urine Negative (Negative); Non Pathogenic Casts 0-2; Protein Urine 1+ mg/dL (Negative); RBC Urine 0-2 /hpf (0-2); Specific Grav Ur 1.027 (1.001-1.035); Squamous Epithelial Cell Urine Many /hpf (Few); WBC Urine 0-5 /hpf (0-3)
[2023-01-23 14:20] LABS: Hematocrit 41.8 % (37.0-47.0); Hemoglobin 12.9 g/dL (12.0-15.0); Mean Corpuscular HGB Conc 30.9 g/dl (32-36); Mean Corpuscular Hemoglobin 26.9 pg (26-34); Mean Corpuscular Volume 87.3 fl (80-100); Mean Platelet Volume 11.8 fl (7.4-10.4); Platelet Count Result 205 k/mm3 (150-375); Red Blood Count 4.79 M/mm3 (4.2-5.4); Red Cell Distribution Width 14.6 % (11.5-14.5); White Blood Count 7.2 K/mm3 (4.5-10.0)
[2023-01-23 14:28] LABS: Creatinine Urine 202.5 mg/dL
[2023-01-23 14:32] LABS: Alanine Aminotransferase 21 U/L (6-35); Albumin Level 4.2 g/dL (3.5-5.1); Alkaline Phosphatase 81 U/L (38-126); Anion Gap 10 mmol/L (8-16); Aspartate Amino Transferase 34 U/L (14-36); Bilirubin,Total 0.9 mg/dL (0.2-1.3); Blood Urea Nitrogen 27 mg/dL (7-17); Carbon Dioxide 27 mmol/L (22-30); Chloride 103 mmol/L (98-107); Cholesterol 167 mg/dL (0-200); Estimated Glomerular Filt Rate > 60; Glucose 127 mg/dL (65-110); HDL Direct 39 mg/dL; Potassium 3.9 mmol/L (3.4-5.0); Sodium 140 mmol/L (137-145); Triglycerides 204 mg/dL (<150)
[2023-01-23 14:33] LABS: MALB Creatinine Ratio 38.2 mg/g (0-30); Microalbumin Urine Random 77.3 mg/L (0-16.7)
[2023-01-23 14:43] LABS: LDL Cholesterol Direct 78 mg/dL
[2023-01-23 14:44] LABS: Add Urine Microscopic? YES
[2023-01-23 20:35] LABS: Hemoglobin A1C 5.9 % (<5.7)
== END 2023-01-23 08:20 | disposition home or self-care (01) ==
PROVIDERS: PCP Family Medicine; Visit Provider Family Medicine
DX: R07.9 Chest pain, unspecified (principal); E11.9 Type 2 diabetes mellitus without complications; I10 Essential (primary) hypertension; E78.5 Hyperlipidemia, unspecified
CPT/HCPCS: 36415; 80053; 80061; 81001; 82043; 83036; 84443; 85027

== ENCOUNTER 2023-01-26 07:39 | Outpatient (CLI) | payer MEDICARE, OTHER, SELFPAY ==
--- NOTE | 2023-01-26 08:05 | ECHO_ITS ---
Patient Info Name: Scarlett Gómez Age: 78 years : 1945 Gender: Female Ht: 63 in Wt: 205 lbs BSA: 2.08 m2 HR: 88 bpm BP: 146 / 80 mmHg Heart Rhythm: Indeterminant Technical Quality: Good Exam Date: 01/26/2023 8:18 AM Exam Location: Echo Lab Patient Status: Outpatient Admit Date: 01/26/2023 Staff Ordering Physician: Tom Hernandez DO Leaf Stripper: Jesus Alberto Crow RDCS Attending Provider: Tom Hernandez DO Referring Physician: David ABRAHAM; Exam Type: CA echo doppler color flow Study Info Indications - cardiomyopathy unsp Complete two-dimensional, color flow and Doppler transthoracic echocardiogram is performed. Summary 1. Complete two-dimensional, color flow and Doppler transthoracic echocardiogram is performed. 2. Left ventricular chamber dimension is severely enlarged. 3. Left ventricular systolic function is severely globally reduced, estimated at 25-30%. 4. There is mild concentric increased left ventricular wall thickness. 5. The left ventricular diastolic function is grade I diastolic dysfunction. 6. E/e' 25 is significantly elevated. 7. Left atrial chamber dimension is moderately enlarged. 8. Right atrial chamber dimension is moderately enlarged. 9. There is mild aortic valve sclerosis. 10. There is moderate aortic valve regurgitation. 11. The mitral valve has mildly calcified annulus. 12. There is moderate to severe mitral valve regurgitation. 13. There is mild tricuspid valve regurgitation. 14. Severe pulmonary hypertension, estimated pulmonary arterial systolic pressure is 61 mmHg. 15. There is trivial pericardial effusion. Left Ventricle E/e' 25 is significantly elevated. Left ventricular systolic function is severely globally reduced, estimated at 25-30%. Left ventricular chamber dimension is severely enlarged. There is mild concentric increased left ventricular wall thickness. The left ventricular diastolic function is grade I diastolic dysfunction. Right Ventricle Right ventricular systolic function is normal and with normal TAPSE 2.1 cm. Right ventricular chamber dimension is normal. Left Atria Left atrial chamber dimension is moderately enlarged. Right Atria Right atrial chamber dimension is moderately enlarged. Aortic Valve The aortic valve is trileaflet. There is mild aortic valve sclerosis. There is no aortic valve stenosis. There is moderate aortic valve regurgitation. Pulmonic Valve There is no pulmonic regurgitation. Mitral Valve The mitral valve has mildly calcified annulus. There is no mitral valve stenosis. There is moderate to severe mitral valve regurgitation. Tricuspid Valve There is mild tricuspid valve regurgitation. Severe pulmonary hypertension, estimated pulmonary arterial systolic pressure is 61 mmHg. Pericardium/Pleural There is trivial pericardial effusion. Inferior Vena Cava Normal inferior vena cava with >50% collapse upon inspiration consistent with normal right atrial pressure, 5 mmHg. Aorta The aortic root size at the sinus of Valsalva is normal. Left Ventricular Outflow Tract Name Value Normal LVOT 2D LVOT Diameter 2.1 cm LVOT Doppler LVOT Peak Gradient 3 mmHg LVOT Mean Gradient
== END 2023-01-26 07:40 | disposition home or self-care (01) ==
LOC: ANHCARD 07:40
PROVIDERS: PCP Family Medicine; Visit Provider Internal Medicine Cardiovascular Disease
DX: I42.9 Cardiomyopathy, unspecified (principal); I08.3 Combined rheumatic disorders of mitral, aortic and tricuspid valves
CPT/HCPCS: 93306

== ENCOUNTER 2023-04-09 12:35 | Outpatient (CLI) | payer MEDICARE, OTHER, SELFPAY ==
--- NOTE | 2023-04-09 12:46 | ECHO_ITS ---
Patient Info Name: Scarlett Gómez Age: 78 years : 1945 Gender: Female Ht: 63 in Wt: 205 lbs BSA: 2.08 m2 HR: 84 bpm BP: 151 / 78 mmHg Heart Rhythm: Sinus Rhythm Technical Quality: Good Exam Date: 04/09/2023 12:51 PM Exam Location: Echo Lab Patient Status: Outpatient Admit Date: 04/09/2023 Staff Ordering Physician: Tom Hernandez DO Director Quality Systems: Jesus Alberto Crow RDCS Attending Provider: Tom Hernandez DO Referring Physician: David ABRAHAM; Exam Type: CA echo doppler color flow Study Info Indications - cardiomyopathy, unspecified Complete two-dimensional, color flow and Doppler transthoracic echocardiogram is performed. Summary 1. Complete two-dimensional, color flow and Doppler transthoracic echocardiogram is performed. 2. Left ventricular chamber dimension is moderately enlarged. 3. Left ventricular systolic function is severely reduced, estimated at 30-35%. 4. There is mild concentric increased left ventricular wall thickness. 5. The left ventricular diastolic function is grade I diastolic dysfunction. 6. E/e' 20 is elevated. 7. Left atrial chamber dimension is mildly enlarged. 8. Right atrial chamber dimension is mildly enlarged. 9. There is mild aortic valve sclerosis. 10. There is mild aortic valve regurgitation. 11. The mitral valve has mildly calcified annulus. 12. There is moderate mitral valve regurgitation. 13. There is mild to moderate tricuspid valve regurgitation. 14. Moderate pulmonary hypertension, estimated pulmonary arterial systolic pressure is 54 mmHg. 15. There is trivial pericardial effusion. Left Ventricle E/e' 20 is elevated. Left ventricular chamber dimension is moderately enlarged. Left ventricular systolic function is severely reduced, estimated at 30-35%. There is mild concentric increased left ventricular wall thickness. The left ventricular diastolic function is grade I diastolic dysfunction. Right Ventricle Right ventricular systolic function is normal and with normal TAPSE 2.2 cm. Right ventricular chamber dimension is normal. Left Atria Left atrial chamber dimension is mildly enlarged. Right Atria Right atrial chamber dimension is mildly enlarged. Aortic Valve The aortic valve is trileaflet. There is mild aortic valve sclerosis. There is no aortic valve stenosis. There is mild aortic valve regurgitation. Pulmonic Valve There is no pulmonic regurgitation. Mitral Valve The mitral valve has mildly calcified annulus. There is no mitral valve stenosis. There is moderate mitral valve regurgitation. Tricuspid Valve There is mild to moderate tricuspid valve regurgitation. Moderate pulmonary hypertension, estimated pulmonary arterial systolic pressure is 54 mmHg. Pericardium/Pleural There is trivial pericardial effusion. Inferior Vena Cava Normal inferior vena cava with >50% collapse upon inspiration consistent with normal right atrial pressure, 5 mmHg. Aorta The aortic root size at the sinus of Valsalva is normal. Left Ventricular Outflow Tract Name Value Normal LVOT 2D LVOT Diameter 1.9 cm LVOT Doppler LVOT Peak Gradient 3 mmHg LVOT Mean Gradient 2 mmHg LVOT VTI
== END 2023-04-09 12:36 | disposition home or self-care (01) ==
LOC: ANHCARD 12:35
PROVIDERS: PCP Family Medicine; Visit Provider Internal Medicine Cardiovascular Disease
DX: I42.9 Cardiomyopathy, unspecified (principal); I08.3 Combined rheumatic disorders of mitral, aortic and tricuspid valves
CPT/HCPCS: 93306

== ENCOUNTER 2023-04-15 08:14 | Outpatient (CLI) | payer MEDICARE, OTHER, SELFPAY ==
[2023-04-15 13:43] LABS: Anion Gap 8 mmol/L (8-16); Blood Urea Nitrogen 31 mg/dL (7-17); Carbon Dioxide 28 mmol/L (22-30); Chloride 102 mmol/L (98-107); Estimated Glomerular Filt Rate > 60; Glucose 97 mg/dL (65-110); Magnesium 2.7 mg/dL (1.6-2.3); Potassium 4.4 mmol/L (3.4-5.0); Sodium 138 mmol/L (137-145)
== END 2023-04-15 08:15 | disposition home or self-care (01) ==
LOC: ANHGOSHLAB 08:16
PROVIDERS: PCP Family Medicine; Visit Provider Internal Medicine Cardiovascular Disease
DX: I50.9 Heart failure, unspecified (principal)
CPT/HCPCS: 36415; 80048; 83735

== ENCOUNTER 2023-05-20 08:43 | Outpatient (CLI) | payer MEDICARE, OTHER, SELFPAY ==
[2023-05-20 14:14] LABS: Alanine Aminotransferase 18 U/L (6-35); Albumin Level 4.3 g/dL (3.5-5.1); Alkaline Phosphatase 77 U/L (38-126); Anion Gap 5 mmol/L (8-16); Aspartate Amino Transferase 49 U/L (14-36); Bilirubin,Total 0.8 mg/dL (0.2-1.3); Blood Urea Nitrogen 27 mg/dL (7-17); Calcium 9.4 mg/dL (8.4-10.2); Carbon Dioxide 30 mmol/L (22-30); Chloride 104 mmol/L (98-107); Estimated Glomerular Filt Rate > 60; Glucose 115 mg/dL (65-110); Potassium 4.5 mmol/L (3.4-5.0); Sodium 139 mmol/L (137-145)
[2023-05-20 22:34] LABS: Hemoglobin A1C 6.6 % (<5.7)
== END 2023-05-20 08:44 | disposition home or self-care (01) ==
PROVIDERS: PCP Family Medicine; Visit Provider Family Medicine
DX: E11.9 Type 2 diabetes mellitus without complications (principal)
CPT/HCPCS: 36415; 80053; 83036

== ENCOUNTER 2023-06-13 17:33 | Emergency (ER) | payer MEDICARE, OTHER, SELFPAY ==
--- NOTE | 2023-06-13 17:36 | ED.GENADULT ---
HPI - General Adult General Chief complaint: Headache Stated complaint: Headache Source: patient, RN notes reviewed and old records reviewed Mode of arrival: ambulatory Limitations: no limitations History of Present Illness HPI narrative: 78-year-old female presents to [facility] with complaints headache, chest pressure, abdominal pain, weakness, states just not feeling right. Patient states symptoms all started around 3:00 p.m. today. Patient has not taken anything for symptoms. Related Data Home Medications Medication Instructions Recorded Confirmed calcium carbonate 600 mg PO DAILY 09/23/21 06/13/23 albuterol sulfate 90 mcg/actuation 2 puff inhalation QID PRN Wheezing 03/13/22 06/13/23 aerosol inhaler (ProAir HFA) citalopram 20 mg tablet (Celexa) 20 mg PO DAILY 06/13/23 06/13/23 metformin 500 mg tablet,extended 500 mg PO DAILY 06/13/23 06/13/23 release 24 hr Allergies Allergy/AdvReac Type Severity Reaction Status Date / Time No Known Allergies Allergy Verified 06/13/23 17:54 Review of Systems Constitutional: Constitutional: Reports no additional constitutional complaints, Denies body ache(s), Denies chills, Denies fatigue, Denies fever(s) and Reports headache(s) Eyes: Eyes: Reports no additional eye complaints and Denies blurry vision ENT: Reports system reviewed and no additional complaints, except as documented, Denies vertigo, Denies dizziness, Denies ear discharge, Denies otalgia, Denies facial pain, Reports headache(s), Denies nasal congestion, Denies nasal discharge, Denies sinus pain, Denies sinus pressure and Denies sore throat Cardiovascular: Cardiovascular: Reports no additional cardiovascular complaints, Denies chest pain, Denies chest pain at rest, Denies rapid heart rate, Denies dyspnea and Reports other ( Chest pressure) Respiratory: Respiratory: Reports no additional respiratory complaints, Denies chest congestion, Denies cough, Denies pain on inspiration, Denies pain with cough and Denies dyspnea Gastrointestinal: Gastrointestinal: Denies abdominal pain, Denies diarrhea, Denies nausea and Denies vomiting Integumentary/Breasts: Skin/Breast: Denies rash Neurologic: Reports as per HPI, Denies Neuro-related abnormal movements, Denies Abnormal speech present, Denies abnormal gait, Denies vertigo, Denies dizziness, Reports headache(s) and Reports weakness Endocrine: Endocrine: Denies fatigue FORMERLY [facility], [facility]1983 Past Medical History Medical History Anxiety Bilateral hip pain Cardiomyopathy 05/2021 EF 40-45% Carpal tunnel syndrome Coronary artery calcification 05/2021 cardiac catheterization showed no significant coronary disease. Diet-controlled diabetes mellitus Dyslipidemia Gastroesophageal reflux disease Gout Hammer toe Hepatic steatosis HLD (hyperlipidemia) HTN (hypertension) Hyperlipidemia IFG (impaired fasting glucose) Intraductal papillary mucinous neoplasia Left bundle branch block Left bundle branch block Metabolic syndrome Mitral regurgitation Pancreatic cyst Primary osteoarthritis of left knee Primary osteoarthritis of right knee Right clavicle fracture RLS (restless legs syndrome) Sleep apnea Uses CPAP Tricuspid regurgitation Type 2 diabetes mellitus with diabetic neuropathy, without long-term current use of insulin Vitamin D deficiency, unspecified Surgical History Surgical History H/O cataract extraction Bilateral eyes June 2020 H/O: hysterectomy History of orthopedic surgery Right toe surgery Hx of tonsillectomy Presence of right artificial knee joint Status post total knee replacement, 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
[2023-06-13 17:48] VITALS: BP 125/67; PULSE 78; RESP 16; TEMP 36.9; O2SAT 96
--- NOTE | 2023-06-13 18:19 | ECG_ITS ---
SEE SCANNED COPY FOR CONFIRMED REPORT MTDD
== END 2023-06-13 18:19 | disposition short-term general hospital (02) ==
PROVIDERS: Emergency Provider Registered Nurse; PCP Family Medicine
DX: R07.89 Other chest pain (principal); R51.9 Headache, unspecified; R53.1 Weakness; E11.9 Type 2 diabetes mellitus without complications; E78.5 Hyperlipidemia, unspecified; K21.9 Gastro-esophageal reflux disease without esophagitis; M10.9 Gout, unspecified; I10 Essential (primary) hypertension; E88.810 Metabolic syndrome; M17.0 Bilateral primary osteoarthritis of knee; G25.81 Restless legs syndrome; G47.30 Sleep apnea, unspecified; E11.42 Type 2 diabetes mellitus with diabetic polyneuropathy; E55.9 Vitamin D deficiency, unspecified; Z98.42 Cataract extraction status, left eye; F41.9 Anxiety disorder, unspecified; Z98.41 Cataract extraction status, right eye; Z96.653 Presence of artificial knee joint, bilateral
CPT/HCPCS: 93005; 99213; G0463

== ENCOUNTER 2023-07-12 08:58 | Outpatient (CLI) | payer MEDICARE, OTHER, SELFPAY ==
--- NOTE | ~2023-07-12 | MM_ITS ---
EXAMINATION: MM screening [place] BI w camille HISTORY: Screening mammogram TECHNIQUE: Craniocaudal and mediolateral oblique 3-D tomosynthesis images were obtained and synthetic 2-D images were generated. CAD analysis was submitted and interpreted. COMPARISON: 02/27/2022 bilateral screening mammogram 09/06/2020 diagnostic bilateral mammogram 12/08/2019 diagnostic left mammogram and Limited left breast ultrasound 03/17/2019 bilateral screening mammogram BREAST PARENCHYMAL COMPOSITION: There are scattered areas of fibroglandular density. FINDINGS: There is no evidence of suspicious mass, calcification, or architectural distortion to sugg est malignancy in either breast. There has been no suspicious interval change. IMPRESSION: 1. No mammographic evidence of malignancy. 2. Recommend routine screening mammography in one year. BI-RADS Category 1: Negative Reviewed, dictated and finalized at location B.
== END 2023-07-12 08:59 | disposition home or self-care (01) ==
PROVIDERS: PCP Family Medicine; Visit Provider Family Medicine
DX: Z12.31 Encounter for screening mammogram for malignant neoplasm of breast (principal)
CPT/HCPCS: 77063; 77067

== ENCOUNTER 2023-08-16 13:30 | Outpatient (CLI) | payer MEDICARE, OTHER, SELFPAY ==
--- NOTE | 2023-08-16 13:37 | ECHO_ITS ---
Patient Info Name: Scarlett Gómez Age: 78 years : 1945 Gender: Female Ht: 63 in Wt: 209 lbs BSA: 2.10 m2 HR: 69 bpm BP: 113 / 66 mmHg Technical Quality: Fair Exam Date: 08/16/2023 1:44 PM Exam Location: Echo Lab Patient Status: Outpatient Admit Date: 08/16/2023 Staff Ordering Physician: Tom Hernandez DO Financial Internship: Skip Mills RDCS Attending Provider: Tom Hernandez DO Referring Physician: David ABRAHAM; Exam Type: CA echo dop color flow w con Study Info Indications I42.9 - Cardiomyopathy, unspecified Complete two-dimensional, color flow and Doppler transthoracic echocardiogram is performed. Summary 1. Complete two-dimensional, color flow and Doppler transthoracic echocardiogram is performed. 2. Left ventricular chamber dimension is mildly enlarged. 3. Basal to apical anterior, anteroseptal, septal curtis are severely hypokinetic to akinetic. 4. Left ventricular systolic function is moderately reduced, estimated at 40-45%. 5. There is mild concentric increased left ventricular wall thickness. 6. The left ventricular diastolic function is grade I diastolic dysfunction. 7. E/e' 14 is mildly elevated. 8. Left atrial chamber dimension is mildly enlarged. 9. There is mild aortic valve sclerosis. 10. There is mild to moderate aortic valve regurgitation. 11. The mitral valve has mildly calcified annulus. 12. There is moderate mitral valve regurgitation. 13. There is mild to moderate tricuspid valve regurgitation. 14. No pulmonary hypertension, estimated pulmonary arterial systolic pressure is 31 mmHg. Left Ventricle E/e' 14 is mildly elevated. Basal to apical anterior, anteroseptal, septal curtis are severely hypokinetic to akinetic. Left ventricular chamber dimension is mildly enlarged. Left ventricular systolic function is moderately reduced, estimated at 40-45%. There is mild concentric increased left ventricular wall thickness. The left ventricular diastolic function is grade I diastolic dysfunction. Right Ventricle Right ventricular chamber dimension is normal. Right ventricular systolic function is normal. Left Atria Left atrial chamber dimension is mildly enlarged. Right Atria Right atrial chamber dimension is normal. Aortic Valve The aortic valve is trileaflet. There is mild aortic valve sclerosis. There is no aortic valve stenosis. There is mild to moderate aortic valve regurgitation. Pulmonic Valve There is no pulmonic regurgitation. Mitral Valve The mitral valve has mildly calcified annulus. There is no mitral valve stenosis. There is moderate mitral valve regurgitation. Tricuspid Valve There is mild to moderate tricuspid valve regurgitation. No pulmonary hypertension, estimated pulmonary arterial systolic pressure is 31 mmHg. Pericardium/Pleural There is no pericardial effusion. Inferior Vena Cava Normal inferior vena cava with >50% collapse upon inspiration consistent with normal right atrial pressure, 5 mmHg. Aorta The aortic root size at the sinus of Valsalva is normal. Left Ventricular Outflow Tract Name Value Normal LVOT 2D LVOT Diameter 1.91 cm LVOT Doppler LVOT Peak Gradient 4 mmHg LVOT Mean Gradient 2 mm
== END 2023-08-16 13:31 | disposition home or self-care (01) ==
LOC: ANHCARD 13:31
PROVIDERS: PCP Family Medicine; Visit Provider Internal Medicine Cardiovascular Disease
DX: I42.9 Cardiomyopathy, unspecified (principal); I34.0 Nonrheumatic mitral (valve) insufficiency; I35.1 Nonrheumatic aortic (valve) insufficiency; I36.1 Nonrheumatic tricuspid (valve) insufficiency
CPT/HCPCS: 93306

== ENCOUNTER 2023-08-22 08:02 | Outpatient (CLI) | payer MEDICARE, OTHER, SELFPAY ==
[2023-08-22 19:08] LABS: Alanine Aminotransferase 17 U/L (6-35); Albumin Level 4.4 g/dL (3.5-5.1); Alkaline Phosphatase 79 U/L (38-126); Anion Gap 6 mmol/L (4-12); Aspartate Amino Transferase 40 U/L (14-36); Bilirubin,Total 0.6 mg/dL (0.2-1.3); Blood Urea Nitrogen 33 mg/dL (7-17); Calcium 9.4 mg/dL (8.4-10.2); Carbon Dioxide 31 mmol/L (22-30); Chloride 103 mmol/L (98-107); Estimated Glomerular Filt Rate 48; Glucose 106 mg/dL (65-110); Potassium 4.4 mmol/L (3.4-5.0); Sodium 140 mmol/L (137-145)
[2023-08-22 22:34] LABS: Hemoglobin A1C 6.4 % (<5.7)
== END 2023-08-22 08:03 | disposition home or self-care (01) ==
PROVIDERS: PCP Family Medicine; Visit Provider Family Medicine
DX: E11.9 Type 2 diabetes mellitus without complications (principal)
CPT/HCPCS: 36415; 80053; 83036

== ENCOUNTER 2023-12-09 16:10 | Emergency (ER) | payer MEDICARE, OTHER, SELFPAY ==
[2023-12-09] VITALS (21 sets, daily range): BP systolic 115–149; BP diastolic 55–90; PULSE 63–80; RESP 12–18; TEMP 36.6; O2SAT 90–98
--- NOTE | ~2023-12-09 | XR_ITS ---
EXAMINATION: XR chest 2V DATE: 12/09/2023 16:40 INDICATION: Chest pain and weakness TECHNIQUE: frontal and lateral views of the chest were obtained. COMPARISON: Chest radiograph dated 09/23/[address] dated 09/25/2021 FINDINGS: Cardiomegaly. Small lung volumes. Opacities at the bilateral lower lung zones which could represent a telectasis, pneumonia or mild pulmonary edema. No pleural effusion or pneumothorax. Mild thoracic spo ndylosis. IMPRESSION: 1. Small lung volumes with mild opacities in the lower lung zones which could represent atelectasis, pneumonia or mild pulmonary edema. 2. Cardiomegaly. Reviewed, dictated and finalized at location A. IMPRESSION: 1. Small lung volumes with mild opacities in the lower lung zones which could r epresent atelectasis, pneumonia or mild pulmonary edema. 2. Cardiomegaly.
--- NOTE | 2023-12-09 16:11 | ECG_ITS ---
Test Date: 2023-12-09 16:17:03 Measurements Intervals [place] Rate: 67 P: 78 SD: 188 QRS: -60 QRSD: 154 T: 80 QT: 462 QTc: 491 Interpretive Statements SINUS RHYTHM WITH FREQUENT SUPRAVENTRICULAR PREMATURE COMPLEXES MARKED LEFT AXIS DEVIATION [QRS AXIS < -30] LEFT BUNDLE BRANCH BLOCK [120+ ms QRS DURATION, 80+ ms Q/S IN V1/V2, 85+ ms R IN I/aVL/V5/V6] No previous ECG available for comparison Electronically Signed On 12-10-2023 11:58:53 CDT by Marcin Douglas M.D.
--- NOTE | 2023-12-09 16:29 | PC.NURSE ---
Pt reports taking one baby ASA at home, was given 3 more in ambulance.
[2023-12-09 16:38] LABS: Basophils Percent Auto 0.4 % (0.2-1.2); Eosinophils Absolute Auto 0.2 K/mm3 (0-0.3); Eosinophils Percent Auto 1.6 % (0-4.4); Hematocrit 43.8 % (37.0-47.0); Hemoglobin 14.5 g/dL (12.0-15.0); Immature Granulocyte Absolute 0.03 K/mm3 (0.00-0.031); Immature Granulocyte Percent A 0.3 % (0-0.5); Lymphocytes Absolute Auto 2.52 K/mm3 (0.9-3.2); Lymphocytes Percent Auto 23.6 % (18.3-44.2); Mean Corpuscular HGB Conc 33.1 g/dl (32-36); Mean Corpuscular Hemoglobin 29.1 pg (26-34); Mean Corpuscular Volume 87.8 fl (80-100); Mean Platelet Volume 11.3 fl (7.4-10.4); Monocytes Absolute Auto 0.7 K/mm3 (0.1-0.6); Monocytes Percent Auto 6.8 % (2.6-8.5); Neutrophils Absolute Auto 7.2 K/mm3 (1.3-6.7); Neutrophils Percent Auto 67.3 % (45.5-73.1); Platelet Count Result 191 k/mm3 (150-375); Red Blood Count 4.99 M/mm3 (4.2-5.4); Red Cell Distribution Width 14.6 % (11.5-14.5); White Blood Count 10.7 K/mm3 (4.5-10.0)
[2023-12-09 16:47] LABS: Alanine Aminotransferase 18 U/L (6-35); Albumin Level 4.6 g/dL (3.5-5.1); Alkaline Phosphatase 80 U/L (38-126); Anion Gap 12 mmol/L (4-12); Aspartate Amino Transferase 29 U/L (14-36); Blood Urea Nitrogen 29 mg/dL (7-17); Calcium 9.3 mg/dL (8.4-10.2); Carbon Dioxide 26 mmol/L (22-30); Chloride 101 mmol/L (98-107); Estimated CRCL calculation 43 ml/min; Estimated Glomerular Filt Rate 48; Glucose 98 mg/dL (65-110); Lipase 142 U/L (23-300); Potassium 3.9 mmol/L (3.4-5.0); Prothrombin Time 13.8 Seconds (11.1-14.7); Sodium 139 mmol/L (137-145)
[2023-12-09 16:48] LABS: Partial Thromboplastin Time 27.5 Seconds (22.3-36.8)
[2023-12-09 16:58] LABS: Troponin I < 0.012 ng/mL (0.000-0.034)
--- NOTE | 2023-12-09 17:30 | ED.CHESTPAIN ---
HPI - Chest Pain General Chief Complaint: Chest Pain Stated Complaint: chest pain/h/a Time Seen by Provider: 12/09/23 16:46 History of Present Illness HPI narrative: 78-year-old female presenting to the emergency department for evaluation for headache and chest pain that resolved. Patient states she just got back from a dentist office when she had onset of chest pain. Patient had no procedures or medications done. Patient states shortly after she got home she started developing a right-sided headache that lasted approximately 30 minutes. Patient states her response to the headache she had onset of chest pain. Symptoms last about 30 minutes and then resolved. Upon arrival emergency department patient states that her symptoms are resolved. Patient denies any prior history of coronary artery disease. Patient did have an echo approximately 6 months ago and had a stress test approximately 3-4 years ago. She has no cardiac stents and no prior history of TIA, CVA or DE. Related Data Home Medications Medication Instructions Recorded Confirmed calcium carbonate 600 mg PO DAILY 09/23/21 09/03/23 albuterol sulfate 90 mcg/actuation 2 puff inhalation QID PRN Wheezing 03/13/22 09/03/23 aerosol inhaler (ProAir HFA) metformin 500 mg tablet,extended 500 mg PO DAILY 06/13/23 09/03/23 release 24 hr Allergies Allergy/AdvReac Type Severity Reaction Status Date / Time No Known Allergies Allergy Verified 09/03/23 13:06 Review of Systems Review of Systems: All systems reviewed & are unremarkable except as noted in HPI and below PMFSH Past Medical History Medical History (Updated 12/09/23 @ 20:00 by Manuel Ortiz MD) Anxiety Bilateral hip pain Cardiomyopathy 05/2021 EF 40-45% Carpal tunnel syndrome Coronary artery calcification 05/2021 cardiac catheterization showed no significant coronary disease. Diet-controlled diabetes mellitus Dyslipidemia Gastroesophageal reflux disease Gout Hammer toe Hepatic steatosis HLD (hyperlipidemia) HTN (hypertension) Hyperlipidemia IFG (impaired fasting glucose) Intraductal papillary mucinous neoplasia Left bundle branch block Left bundle branch block Metabolic syndrome Mitral regurgitation Pancreatic cyst Primary osteoarthritis of left knee Primary osteoarthritis of right knee Right clavicle fracture RLS (restless legs syndrome) Sleep apnea Uses CPAP Tricuspid regurgitation Type 2 diabetes mellitus with diabetic neuropathy, without long-term current use of insulin Vitamin D deficiency, unspecified Surgical History Surgical History H/O cataract extraction Bilateral eyes June 2020 H/O: hysterectomy History of orthopedic surgery Right toe surgery Hx of tonsillectomy Presence of right artificial knee joint Status post total knee replacement, 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hroat cancer Son Kidney stones Myocardial infarct Chronic kidney disease Mother Cerebrovascular accident Father Family history of coronary artery disease Other Family history of arthritis Social History Social History Social History: lives at home with Smoking status: Never smoker Second hand tobacco smoke exposure: No Additional smoking assessment comments: PT DENIES ALL FORMS OF TOBACCO USE Alcohol intake: never Substance use: never Substance use type: does not use Do You Feel Safe in your Home?: Yes Lack of Transportation: No Lack of Food: Never True Current Housing: I Have Housing Concerned About Future Housing: No Difficulty Paying Gas/Electric Bills: No Difficulty Paying for Meds: No Curre
--- NOTE | 2023-12-09 17:57 | PC.NURSE ---
Pt reports MERCADO has improved, no CP since initial episode. Pt resting comfortably in bed, lights dimmed, no requests at this time.
--- NOTE | 2023-12-09 18:58 | ECG_ITS ---
Test Date: 2023-12-09 19:06:26 Measurements Intervals [employer] Rate: 65 P: 54 NV: 193 QRS: -50 QRSD: 162 T: 76 QT: 482 QTc: 503 Interpretive Statements SINUS RHYTHM LEFT AXIS DEVIATION [QRS AXIS < -30] LEFT BUNDLE BRANCH BLOCK [120+ ms QRS DURATION, 80+ ms Q/S IN V1/V2, 85+ ms R IN I/aVL/V5/V6] Compared to ECG 12/09/2023 16:17:03 No significant changes Electronically Signed On 12-10-2023 12:00:09 CDT by Marcin Douglas M.D.
[2023-12-09 19:42] LABS: Troponin I < 0.012 ng/mL (0.000-0.034)
== END 2023-12-09 20:12 | disposition home or self-care (01) ==
PROVIDERS: Emergency Medicine; Emergency Provider Emergency Medicine; PCP Family Medicine
DX: R07.9 Chest pain, unspecified (principal); R51.9 Headache, unspecified; I42.9 Cardiomyopathy, unspecified; I10 Essential (primary) hypertension; I08.1 Rheumatic disorders of both mitral and tricuspid valves; E78.5 Hyperlipidemia, unspecified; E11.40 Type 2 diabetes mellitus with diabetic neuropathy, unspecified; E55.9 Vitamin D deficiency, unspecified; K21.9 Gastro-esophageal reflux disease without esophagitis; M17.0 Bilateral primary osteoarthritis of knee; G25.81 Restless legs syndrome; G47.30 Sleep apnea, unspecified; Z79.85 Long-term (current) use of injectable non-insulin antidiabetic drugs; Z79.899 Other long term (current) drug therapy; I49.1 Atrial premature depolarization; I44.7 Left bundle-branch block, unspecified
CPT/HCPCS: 36415; 71046; 80053; 83690; 84484; 85025; 85610; 85730; 93005; 99284

== ENCOUNTER 2024-01-28 08:20 | Outpatient (CLI) | payer MEDICARE, OTHER, SELFPAY ==
[2024-01-28 12:57] LABS: Hematocrit 45.5 % (37.0-47.0); Mean Corpuscular HGB Conc 30.8 g/dl (32-36); Mean Corpuscular Hemoglobin 28.4 pg (26-34); Mean Corpuscular Volume 92.3 fl (80-100); Mean Platelet Volume 11.6 fl (7.4-10.4); Platelet Count Result 213 k/mm3 (150-375); Red Blood Count 4.93 M/mm3 (4.2-5.4); Red Cell Distribution Width 14.6 % (11.5-14.5); White Blood Count 7.6 K/mm3 (4.5-10.0)
[2024-01-28 13:02] LABS: Add Urine Microscopic? YES; Appearance Urine Cloudy (Clear); Bacteria Urine 4+ /hpf; Bilirubin Urine Negative (Negative); Blood Urine Negative (Negative); Color Urine Yellow (Yellow); Glucose Urine UA 3+ mg/dL (Negative); Ketones Urine Trace mg/dL (Negative); Leukocyte Esterase Ur 2+ LEU/UL (Negative); Nitrate Urine Positive (Negative); Protein Urine 1+ mg/dL (Negative); RBC Urine 0-2 /hpf (0-2); Specific Grav Ur 1.033 (1.001-1.035); Squamous Epithelial Cell Urine Occasional /hpf (Few); WBC Urine >100 /hpf (0-3)
[2024-01-28 13:08] LABS: Alanine Aminotransferase 18 U/L (6-35); Albumin Level 4.4 g/dL (3.5-5.1); Alkaline Phosphatase 74 U/L (38-126); Anion Gap 6 mmol/L (4-12); Aspartate Amino Transferase 41 U/L (14-36); Bilirubin,Total 0.8 mg/dL (0.2-1.3); Blood Urea Nitrogen 28 mg/dL (7-17); Calcium 9.5 mg/dL (8.4-10.2); Carbon Dioxide 32 mmol/L (22-30); Chloride 102 mmol/L (98-107); Cholesterol 167 mg/dL (0-200); Estimated Glomerular Filt Rate 54; Glucose 116 mg/dL (65-110); HDL Direct 37 mg/dL; Potassium 4.7 mmol/L (3.4-5.0); Sodium 140 mmol/L (137-145); Triglycerides 218 mg/dL (<150)
[2024-01-28 13:20] LABS: LDL Cholesterol Direct 72 mg/dL
[2024-01-28 13:44] LABS: Microalbumin Urine Random 42.2 mg/L (0-16.7)
[2024-01-28 13:46] LABS: Hemoglobin A1C 6.5 % (<5.7)
== END 2024-01-28 08:21 | disposition home or self-care (01) ==
PROVIDERS: PCP Family Medicine; Visit Provider Family Medicine
DX: E11.9 Type 2 diabetes mellitus without complications (principal); E78.5 Hyperlipidemia, unspecified; I10 Essential (primary) hypertension; Z00.00 Encounter for general adult medical examination without abnormal findings; R07.9 Chest pain, unspecified
CPT/HCPCS: 36415; 80053; 80061; 81001; 82043; 83036; 84443; 85027

== ENCOUNTER 2024-05-28 08:05 | Outpatient (CLI) | payer MEDICARE, OTHER, SELFPAY ==
--- OUTSIDE RECORDS SUMMARY | 2024-05-28 08:14 | XMS_ITS | Continuity of Care Document ---
Author Name [facility] Organization [facility] Care Team Providers Care Asbestos Cloth Inspector Name Role Phone [facility] Unavailable Unavailable Medications Combined list of outpatient medications from Department of Defense and Veterans Affairs facilities.Medications provided include 1) outpatient medications from the last 15 months, and 2) patient-reported medications. Medication Details Route Status Patient Instructions Prescription Expires Prescription Number Last Dispense Date Ordering Provider Order Date Order Qty Source aspirin EC 81 mg tablet 81 mg, Oral, Daily, # 90 EA, 3 total refill(s ), Hard Stop Oral (given by mouth) Complet ed 02/20/2024 3 2023 90.0 Ambulat ory Pharmac y aspirin EC 81 mg tablet 81 mg, Oral, Daily, # 90 EA, 3 total refill(s ), Hard Stop Oral (given by mouth) Complet ed 11/23/2023 3 2023 90.0 Ambulat ory Pharmac y aspirin EC 81 mg tablet See Instruct ions, # 90 EA, 2 total refill(s ), Acute Complet ed 02/21/2023 3 2022 90.0 Ambulat ory Pharmac y carvedilol 12.5 mg tablet 12.5 mg, Oral, every 12 hr, # 180 EA, 2 total refill(s ), Hard Stop Oral (given by mouth) Ordered 01/01/2025 5 2024 180.0 Ambulat ory Pharmac y carvedilol 12.5 mg tablet 12.5 mg, Oral, # 60 EA, 5 total refill(s ), Hard Stop Oral (given by mouth) Discont inued 06/20/2023 4 2023 60.0 Ambulat ory Pharmac y carvedilol 6.25 mg tablet 6.25 mg, Oral, BID, # 180 EA, 2 total refill(s ), Hard Stop Oral (given by mouth) Complet ed 02/01/2024 3 2023 180.0 Ambulat ory Pharmac y cetirizine 10 mg tablet See Instruct ions, # 45 EA, 2 total refill(s ), Acute Complet ed 02/21/2023 3 2022 45.0 Ambulat ory Pharmac y citalopram 20 mg tablet 20 mg, Oral, Daily, # 90 EA, 2 total refill(s ), Hard Stop Oral (given by mouth) Ordered 01/01/2025 5 2024 90.0 Ambulat ory Pharmac y Entresto 97 mg-103 mg tablet = 1 tab(s), Oral, BID, # 180 EA, 2 total refill(s ), Hard Stop Oral (given by mouth) Discont inued 01/07/2024 3 2023 180.0 Ambulat ory Pharmac y Entresto 97 mg-103 mg tablet = 1 tab(s), Oral, BID, # 180 EA, 2 total refill(s ), Hard Stop Oral (given by mouth) Ordered 01/01/2025 5 2024 180.0 Ambulat ory Pharmac y Entresto 97 mg-103 mg tablet See Instruct ions, # 180 EA, 1 total refill(s ), Acute Complet ed 11/15/2022 3 2022 180.0 Ambulat ory Pharmac y Farxiga 10 mg tablet 10 mg, Oral, Daily, # 90 EA, 2 total refill(s ), Hard Stop Oral (given by mouth) Complet ed 02/01/2024 4 2023 90.0 Ambulat ory Pharmac y fluticasone 50 mcg/inh nasal spray INSTILL 2 SPRAYS INTRANAS ALLY DAILY NEEDED FOR CONGESTI ON, # 16 g, 3 total refill(s ), Acute Complet ed 02/21/2023 3 2022 16.0 Ambulat ory Pharmac y fluticasone 50 mcg/inh nasal spray [16g] See Instruct ions, # 16 g, 2 total refill(s ), Hard Stop Ordered 01/01/2025 4 2023 16.0 Ambulat ory Pharmac y fluticasone 50 mcg/inh nasal spray [16g] See Instruct ions, # 16 g, 3 total refill(s ), Hard Stop Complet ed 12/11/2023 3 2023 16.0 Ambulat ory Pharmac y Freestyle 28g lancets [100EA] See Instruct ions, # 100 EA, 3 total refill(s ), Hard Stop Ordered 06/19/2024 4 2023 100.0 Ambulat ory Pharmac y Freestyle 28g lancets [100EA] See dose instruct ions in comments , # 100 EA, 2 total refill(s ), Acute Complet ed 02/21/2023 3 2022 100.0 Ambulat ory Pharmac y Freestyle [place] Lite Monitor See Instruct ions, Use as directed to test in the morning. , # 1 EA, 0 total refill(s ), Soft Stop Ordered 5 2024 1.0 Ambulat ory Pharmac y freestyle lite (glucose) test strip [50EA] See Instruct ions, every morning, # 100 EA, 3 total refill(s ), Hard Stop Ordered 06/19/2024 4 2023 100.0 Ambulat ory Pharmac y freestyle lite (glucose) test strip [50EA] See dose instruct ions in comments , # 100 EA, 2 total refill(s ), Acute Complet ed 02/21/2023 3 2022 100.0 Ambulat ory Pharmac y Jardiance 10 mg tablet 10 mg, Oral, Daily, # 90 EA, 2 total refill(s ), Hard Stop Oral (given by mouth) Ordered 01/01/2025 5 2024 90.0 Ambulat ory Pharmac y Jardiance 10 mg tablet 10 mg, Oral, Daily, # 30 EA, 5 total refill(s ), Hard Stop Oral (given by mouth) Discont inued 01/07/2024 4 2023 30.0 Ambulat ory Pharmac y metFORMIN 500 mg oral tablet, extended release TAKE ONE TABLET TWICE DAILY, # 180 EA, 1 total refill(s ), Acute Complet ed 11/16/2022 3 2022 180.0 Ambulat ory Pharmac y metFORMIN XR 500 mg/24 hour tablet 500 mg, Oral, Daily, # 90 EA, 2 total refill(s ), Hard Stop Oral (given by mouth) Ordered 01/01/2025 5 2024 90.0 Ambulat ory Pharmac y metFORMIN XR 500 mg/24 hour tablet 500 mg, Oral, BID, # 180 EA, 3 total refill(s ), Hard Stop Oral (given by mouth) Complet ed 12/11/2023 3 2023 180.0 Ambulat ory Pharmac y omep[address]ole [address] 40 mg capsule 40 mg, Oral, Daily, # 90 EA, 2 total refill(s ), Hard Stop Oral (given by mouth) Ordered 01/01/2025 5 2024 90.0 Ambulat ory Pharmac y om[address]ole [address] 40 mg capsule See dose instruct ions in comments , # 90 EA, 1 total refill(s ), Acute Complet ed 11/16/2022 3 2022 90.0 Ambulat ory Pharmac y omep[address]ole [address] 40 mg capsule 40 mg, Oral, Daily, # 90 EA, 3 total refill(s ), Hard Stop Oral (given by mouth) Complet ed 12/11/2023 4 2023 90.0 Ambulat ory Pharmac y Paxlovid 300 mg-100 mg Dose Pack-EUA [30] See Instruct ions, # 30 EA, 0 total refill(s ), Hard Stop Discont inued 01/07/2024 3 2023 30.0 Ambulat ory Pharmac y pramipexole 1.5 mg tablet See Instruct ions, # 45 EA, 3 total refill(s ), Hard Stop Discont inued 11/26/2023 3 2023 45.0 Ambulat ory Pharmac y pramipexole 1.5 mg tablet See Instruct ions, # 45 EA, 3 total refill(s ), Hard Stop Ordered 11/24/2024 4 2023 45.0 Ambulat ory Pharmac y pramipexole 1.5 mg tablet See dose instruct ions in comments , # 45 EA, 2 total refill(s ), Acute Complet ed 02/21/2023 3 2022 45.0 Ambulat ory Pharmac y simvastatin 20 mg tablet 20 mg, Oral, Daily, # 90 EA, 2 total refill(s ), Hard Stop Oral (given by mouth) Discont inued 01/07/2024 4 2023 90.0 Ambulat ory Pharmac y simvastatin 20 mg tablet See dose instruct ions in comments , # 90 EA, 1 total refill(s ), Acute Complet ed 11/16/2022 3 2022 90.0 Ambulat ory Pharmac y simvastatin 20 mg tablet 20 mg, Oral, Daily, # 90 EA, 2 total refill(s ), Hard Stop Oral (given by mouth) Ordered 01/01/2025 5 2024 90.0 Ambulat ory Pharmac y simvastatin 20 mg tablet 20 mg, Oral, Daily, # 90 EA, 3 total refill(s ), Hard Stop Oral (given by mouth) Discont inued 02/01/2023 3 2022 90.0 Ambulat ory Pharmac y simvastatin 20 mg tablet 20 mg, Oral, Daily, # 90 EA, 3 total refill(s ), Hard Stop Oral (given by mouth) Complet ed 11/23/2023 3 2023 90.0 Ambulat ory Pharmac y spironolact one 25 mg tablet 25 mg, Oral, Daily, # 90 EA, 2 total refill(s ), Hard Stop Oral (given by mouth) Ordered 01/01/2025 5 2024 90.0 Ambulat ory Pharmac y torsemide 20 mg tablet 20 mg, Oral, Daily, # 90 EA, 2 total refill(s ), Hard Stop Oral (given by mouth) Discont inued 01/07/2024 3 2023 90.0 Ambulat ory Pharmac y torsemide 20 mg tablet 20 mg, Oral, Daily, # 90 EA, 2 total refill(s ), Hard Stop Oral (given by mouth) Ordered 01/01/2025 5 2024 90.0 Ambulat ory Pharmac y Immunizations Combined list of available immunizations from the Department of Defense and Veterans Affairs facilities. 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 Source SARS-CoV-2 mRNA(tojag cwm-msya-fmk) vac 2021 217 PFIZER complet ed SARS-CoV- 2 mRNA(oleg willis-t ris-suc)v ac 07/18/21 Given Ambulat ory Pharmac y zoster vaccine, inactivated 2018 187 [employer] complet ed zoster vaccine, inactivat ed 12/09/18 Given Ambulat ory Pharmac y influenza, seasonal,high dose-pf 2018 135 sanofi pasteur complet ed influenza , seasonal, high dose-pf 12/05/18 Given Ambulat ory Pharmac y zoster vaccine live 2011 TRANSCR IBED 121 [employer] complet ed zoster vaccine live 03/23/11 Given Ambulat ory Pharmac y tetanus, diphtheria, acellular pertu is 2007 Efren ht Arm [id number] sanofi pasteur complet ed tetanus, diphtheri a, acellular pertussis 12/30/07 Given Ambulat ory Pharmac y influenza virus vaccine, whole virus 2000 Katie t Arm [id number] sanofi pasteur complet ed influenza virus vaccine, whole virus 01/13/01 Given Ambulat ory Pharmac y Procedures Combined list of: 1) Procedures from Department of Veterans Affairs facilities going back up to thelast 18 months, not all VA non-surgical procedures are included; 2) All procedures from the Department of Defense facilities. Procedure Procedure Type Code Date Perfomer Comments Sourc e No data available for this section Ambulatory P harmacy Assessment and Plan Combined list of future care activities from Department of Defense and Veterans Affairs facilities (e.g., assessment and plan notes, appointments, orders, and referrals). Additional future care activities may be listed in the Plan of Care section. Result Assessment and Plan Date Source Assessment and Plan No data available for this section 05/28/2024 Ambulatory Pharmacy Functional Status Combined list of recent functional and cognitive assessments recorded at Department of Defense and Veterans Affairs (VA).VA Functional Sutter Measurement (FIM) Scale: 1 = Total Assistance (Subject = 0% +), 2 = Maximal Assistance (Subject = 25% +), 3 = Moderate Assistance (Subject = 50% +), 4 = Minimal Assistance (Subject = 75% +), 5 = Supervision, 6 = Modified Sutter (Device), 7 = Complete Sutter (Timely, Safely). Assessment Date/Time Source Assessment Type Assessment Skill Assessment Score Assessment Details No data available for this section
--- OUTSIDE RECORDS SUMMARY | 2024-05-28 08:14 | XMS_ITS | Clinical Summary ---
Author Organization [facility] Address [address] [place] [address] Care Team Providers Care Electrical Assistant Name Role Phone Celso Mack MD Primary Care Provider [phone] Source Comments [facility],non-owned Affiliates and Associated Physician Practices is amultiple site organization consisting of ambulatory clinics and hospital sitesin [place], [place], [place] and [place]. This disclosure is being madepursuant to the Care Everywhere program and may not contain all information available regarding this patient. Last updated 17.[facility] Allergies No known active allergies Medications * Be aware that medications may not be up to date on this document. Alwaysverify current medications with the patient. Medication Sig Dispensed Refills Start Date End Date Status sacubitril-valsartan (Entresto) 97-103 MG tablet Take 97 (ninety seven) tablets to 103 (one hundred three) tablets by mouth 2 times daily 11/16/2021 Active fluticasone propionate (Flonase) 50 MCG/ACT nasal spray [place] 2 (two) sprays into each nostril once daily Active cetirizine (ZyrTEC) 10 MG tablet Take 1 (one) tablet by mouth Active metFORMIN ER 24hr (Glucophage XR) 500MG tablet Take 1 (one) tablet by mouth once Active pramipexole (Mirapex ER) 0.75 MG tablet Take 1 (one) tablet by mouth at bedtime Active albuterol HFA (ProAir HFA) 108 (90 Base) MCG/ACT inhaler Inhale 2 (two) puffs by mouth every 4 hours Active simvastatin (Zocor) 20 MG tablet Take 1 (one) tablet by mouth at bedtime Active aspirin EC (Ecotrin) 81 MG tablet Take 1 (one) tablet by mouth once daily Active vitamin D3 (Cholecalciferol) (25 MCG) 1000 UNIT capsule Take 1 (one) capsule by mouth once daily Active omeprazole (PriLOSEC) 40 MG capsule Take 1 (one) capsule by mouth daily before breakfast Active torsemide (Demadex) 20 MG tablet Take 1 (one) tablet by mouth once daily 90 tablet 3 08/27/2022 Active Ascorbic Acid (Vitamin C) 500 MG as directed Orally Active Multiple Vitamins-Minerals (CertaVite Senior/Antioxidant) TABS 11/17/2021 Active oyster shell calcium 500 MG tablet 1 tablet with meals Orally Twice a day for 30 day(s) Active carvedilol (Coreg) 6.25 MG tablet Take 1 (one) tablet by mouth 2 times daily 08/14/2021 Active citalopram (CeleXA) 20 MG tablet Take 1 (one) tablet by mouth once daily Active pramipexole (Mirapex) 1.5 MG tablet Do not drink alcohol.Take with food/milk.Obtain advice for OTCs.May cause drowsiness/dizzine ss.May impair driving.Check with your doctor before becoming . 02/22/2022 Active Entresto 49-51 MG tablet Take 1 (one) tablet by mouth 2 times daily 90 tablet 7 10/03/2023 Active Social History Tobacco Use Types Packs/Day Years Used Date Smoking Tobacco: Never Smokeless Tobacco: Never Tobacco Cessation:Counseling Given: Not Answered Sex and Gender Information Value Date Recorded Sex Assigned at Female 05/22/2022 1:37 PM CDT Gender Identity Female 05/22/2022 1:37 PM CDT Sexual Orientation Straight 05/22/2022 1: 37 PM CDT Last Filed Vital Signs Vital Sign Reading Time Taken Comments Blood Pressure 113/68 12/18/2022 10:24 AM CDT Pulse 74 12/18/2022 10:24 AM CDT Temperature - - Respiratory Rate 16 11/28/2021 12:11 PM CDT Oxygen Saturation - - Inhaled Oxygen Concentration - - Weight 92.1 kg (203 lb) 12/18/2022 10:24 AM CDT Height 160 cm (5' 2.99 ) 12/18/2022 10:24 AM CDT Body Mass Index 35.97 12/18/2022 10:24 AM CDT Plan of Treatment Health Maintenance Due Date Last Done Comments BONE DENSITY TESTING 1945 MEDICARE AWV 12 MONTHS 1945 HEPATITIS C SCREENING 01/11/1964 DTAP/TDAP/TD VACCINES (1 - Tdap) 1965 PNEUMOCOCCAL VACCINE 50+ (1 of 1 - PCV) 01/16/1996 ZOSTER VACCINE (1 of 2) 01/16/1996 Respiratory Syncytial Virus (RSV) Vaccine Pt: or over 60 yrs (1 - 1-dose 75+ series) 2021 COVID-19 VACCINE (2 - 2023-2 5 season) 2023 07/18/2021 INFLUENZA VACCINE (#1) 2023 12/05/2018 DEPRESSION SCREENING 02/26/2024 HEPATITIS B VACCINE Aged Out No longe r eligible based on patient's age to complete this topic HIB VACCINE Aged Out No longer eligi ble based on patient's age to complete this topic HPV VACCINE Aged Out No longer eligi ble based on patient's age to complete this topic MENINGOCOCCAL (Group B) VACC INE SHARED DECISION-MAKING Aged Out No longer eligibl e based on patient's age to complete this topic MENINGOCOCCAL GROUPS A/C/Y/W VACCINE Aged Out No longer eligible b ased on patient's age to complete this topic Care Teams Electrical Assistant Relationship Specialty Start Date End Date Celso Mack MD [address] [place] [address] PCP - General Family Medicine 11/28/21
--- OUTSIDE RECORDS SUMMARY | 2024-05-28 08:14 | XMS_ITS | Referral Summary ---
Author Organization [facility] [address] Address [address] [place] [address] Care Team Providers Care Floral Manager Name Role Phone Celso Mack MD Primary Care Provider Encounters Date Type Department Care Team Description 05/06/2024 8:00 AM CDT Office Visit [facility] Surgery [address] [place] [address] [place] [address] Christine Nice MD Pancreatic cyst (Primary Dx) 05/06/2024 5:50 AM CDT - 05/06/2024 11:59 PM CDT Hospital Encounter [facility] [address] [place] [address] Pancreatic lesion Discharge Disposition: Discharge to home or self care 03/31/2024 Orders Only [facility] Surgery [address] [place] [address] [place] [address] Christine Nice MD Pancreatic lesion (Primary Dx) from Last 3 Months Allergies Active Allergy Reactions Criticality Noted Date Comments Ropinirole Hcl Other (See comments) Low 08/27/2018 insomnia Medications aspirin 81 mg enteric coated tablet Take 81 mg by mouth nightly 9 Active CHOLECALCIFEROL 1,000 unit tablet Take 1,000 Units by mouth daily 9 Active citalopram (CeleXA) 20 mg tablet Take 20 mg by mouth daily Active omeprazole (PriLOSEC) 40 mg capsule Take 40 mg by mouth daily 9 Active simvastatin (ZOCOR) 20 mg tabletIndications :Mixed hyperlipidemia,He patic steatosis Take 1 tablet (20 mg total) by mouth nightly 90 tablet 3 9 Active CALCIUM 600 600 mg calcium (1,500 mg) tablet Take 600 mg by mouth daily 9 Active PROAIR HFA 90 mcg/actuation inhaler Inhale 2 puffs every 4 (four) hours as needed 9 Active FreeStyle Lite Strips strip 2 Active freestyle 28 gauge lancets 2 Active CertaVite Senior 0.4-300-250 mg-mcg-mcg tablet Take 1 tablet by mouth daily 2 Active cetirizine (ZyrTEC) 10 mg tablet Take 5 mg by mouth daily 2 Active metFORMIN XR (GLUCOPHAGE XR) 500 mg 24 hr tablet Take 500 mg by mouth 2 (two) times a day with meals 2 Active pramipexole (MIRAPEX) 1.5 mg tablet Take 0.75 mg by mouth nightly Active fluticasone propionate (FLONASE) 50 mcg/actuation nasal spray Administer 1 spray into each nostril daily as needed for rhinitis Active carvediloL (COREG) 6.25 mg tabletIndications :Systolic dysfunction,Essen tial hypertension Take 1 tablet (6.25 mg total) by mouth 2 (two) times a day 180 tablet 3 2 Active torsemide (DEMADEX) 20 mg tabletIndications :Systolic dysfunction Take 1 tablet (20 mg total) by mouth daily 90 tablet 3 2 Active sacubitriL-valsar ramsay (ENTRESTO) 97-103 mg tabletIndications :chronic heart failure Take 1 tablet by mouth 2 (two) times a day 180 tablet 3 2 Active Active Problems Problem Noted Date Diagnosed Date PVC (premature ventricular contraction) 08/15/19 22 Morbid (severe) obesity due to excess calories 0 07/31/2021 History of COVID-19 07/31/2021 Nonrheumatic mitral valve regurgitation 05/30/19 Nonrheumatic tricuspid valve regurgitation 05/29 Systolic dysfunction 05/29/2021 Varicose veins of left lower extremity with fay a 12/01/2018 Other chest pain 09/29/2018 Mixed hyperlipidemia 09/29/2018 Coronary artery calcification 09/29/2018 Hiatal hernia 09/29/2018 Hepatic steatosis 09/29/2018 LBBB (left bundle branch block) 09/29/2018 Essential hypertension 09/29/2018 Pancreatic lesion 08/26/2018 Overview (08/26/2018): Added automatically from request for surgery [id number] Social History Tobacco Use Types Packs/Day Years Used Date Smoking Tobacco: Never Smokeless Tobacco: Never Tobacco Cessation:Counseling Given: Not Answered Alcohol Use Standard Drinks/Week Comments Yes 0 (1 standard drink = 0.6 oz pur e alcohol) rarely AUDIT-C Answer Date Recorded Q1: How often do you have a drink containing alc ohol? Monthly or less 06/13/2021 Q2: How many drinks containi ng alcohol do you have on a typical day when you are drinking? 1 or 2 06/13/2021 Q3: How often do you have si x or more drinks on one occasion? 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 Gender Identity Female 02/02/2021 10:01 AM PATTERN DRUM MAKER Sexual Orientation Straight 02/02/2021 10 :01 AM PATTERN DRUM MAKER Last Filed Vital Signs Vital Sign Reading Time Taken Comments Blood Pressure 141/68 05/06/2024 8:44 AM CDT Pulse 75 05/06/2024 8:44 AM CDT Temperature 36.8 C (98.2 F) 06/13/2021 7:26 AM CDT Respiratory Rate 18 06/13/2021 7:26 AM CDT Oxygen Saturation 94% 05/06/2024 8:44 AM CDT Inhaled Oxygen Concentration - - Weight 102.9 kg (226 lb 12.8 oz) 05/06/2024 8:44 AM CDT Height 160 cm (5' 3 ) 05/06/2024 8:44 AM CDT Body Mass Index 40.18 05/06/2024 8:44 AM CDT Plan of Treatment Not on file Medical Devices Implanted Type Area Nursing Informatics Analyst Device Identifier Shelf Expiration Date Model / Serial / Lot Bilateral Total Knee Arthroplasty Bilateral : Knee Angio-Seal Vip 6fr Closere Device [id number] - [id number] Implanted:Qty: 1 on 06/13/2021 by Korina Christie MD at [facility] 03/27/2022 [id number] / / Procedures Procedure Name Priority Date/Time Associated Diagnosis Comments MRI ABDOMEN MRCP W WO CONTRAST Schedule Routine, Read Routine (OP Routine) 05/06/2024 7:26 AM CDT Pancreatic lesion from Last 3 Months Results * MRI Abdomen MRCP W WO Contrast Incl 3D (05/06/2024 7:26 AM CDT) Anatomical Region Laterality Modality Body N/A Magnetic Resonan ce 05/06/2024 10:0 8 AM CDT Impressions 05/06/2024 10:08 AM CDT 1. 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 Small hiatal hernia 3. Mild diffuse hepatic steatosis Electronically signed by: Romeo Munoz M.D. Narrative 05/06/2024 10:08 AM CDT EXAMINATION: 1. MAGNETIC RESONANCE IMAGING OF THE ABDOMEN WITH AND WITHOUT CONTRAST 2. THREE DIMENSIONAL RECONSTRUCTION OF THE BILIARY TREE AND PANCREATIC DUCT HISTORY: Follow-up pancreatic cysts TECHNIQUE: Magnetic resonance imaging of the abdomen was performed prior to and following the uneventful administration of intravenous Gadolinium contrast. The raw data was processed on the scanner by the technologist for 3 dimensional reconstructions of the intrahepatic ducts, extrahepatics ducts, and pancreatic duct. Protocol: Liver MRCP Contrast: gadoterate 20 mL COMPARISON: 05/08/2023 and 04/30/2022 FINDINGS: Liver: Normal size and contour. Mild diffuse hepatic steatosis. No hepatic iron deposition - Bile ducts: No biliary ductal dilatation - Focal liver lesions: None - Vasculature: Portal and hepatic veins are patent Gallbladder: Normal Pancreas: No substantial change in size and features of 3 T2 hyperintense cystic lesions in the pancreatic body and tail. The largest of which measures 1.8 cm (series 9, image 23). All of these appear multilocular macrocystic, but there are no areas of nodular enhancement, wall thickening, or thick enhancing septations. Pancreatic parenchymal signal intensity is normal. All appear to communicate with the pancreatic duct. No pancreatic duct dilatation. Spleen: Normal Adrenals: Normal Kidneys: Scattered cysts. Kidneys enhance symmetrically. No hydronephrosis Other Findings: Lung bases are clear. No pericardial effusion. Mild stranding with subcentimeter lymph nodes in the central mesentery, may represent mesenteric diverticulitis. No abdominal lymphadenopathy. No marrow replacing osseous lesion. Small hiatal hernia Procedure Note Romeo Munoz MD PhD - 05/06/2024 EXAMINATION: 1. MAGNETIC RESONANCE IMAGING OF THE ABDOMEN WITH AND WITHOUT CONTRAST 2. THREE DIMENSIONAL RECONSTRUCTION OF THE BILIARY TREE AND PANCREATIC DUCT HISTORY: Follow-up pancreatic cysts TECHNIQUE: Magnetic resonance imaging of the abdomen was performed prior to and following the uneventful administration of intravenous Gadolinium contrast. The raw data was processed on the scanner by the technologist for 3 dimensional reconstructions of the intrahepatic ducts, extrahepatics ducts, and pancreatic duct. Protocol: Liver MRCP Contrast: gadoterate 20 mL COMPARISON: 05/08/2023 and 04/30/2022 FINDINGS: Liver: Normal size and contour. Mild diffuse hepatic steatosis. No hepatic iron deposition - Bile ducts: No biliary ductal dilatation - Focal liver lesions: None - Vasculature: Portal and hepatic veins are patent Gallbladder: Normal Pancreas: No substantial change in size and features of 3 T2 hyperintense cystic lesions in the pancreatic body and tail. The largest of which measures 1.8 cm (series 9, image 23). All of these appear multilocular macrocystic, but there are no areas of nodular enhancement, wall thickening, or thick enhancing septations. Pancreatic parenchymal signal intensity is normal. All appear to communicate with the pancreatic duct. No pancreatic duct dilatation. Spleen: Normal Adrenals: Normal Kidneys: Scattered cysts. Kidneys enhance symmetrically. No hydronephrosis Other Findings: Lung bases are clear. No pericardial effusion. Mild stranding with subcentimeter lymph nodes in the central mesentery, may represent mesenteric diverticulitis. No abdominal lymphadenopathy. No marrow replacing osseous lesion. Small hiatal hernia IMPRESSION: 1. 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 Small hiatal hernia 3. Mild diffuse hepatic steatosis Electronically signed by: Romeo Munoz M.D. Christine Niec MD IMG MRI PROCEDURES Fin al Result from Last 3 Months Insurance MEDICARE FOR LIFE MEDICARE FOR LIFE [facility] [employer] [facility] MEDICARE Advance Directives For more information, please contact: [phone] * Full Code (Latest Code Status on File) Date Activated Date Inactivated Comments 06/13/2021 9:35 AM 06/13/2021 3:31 PM * Full Code Date Activated Date Inactivated Comments 08/27/2018 12:08 PM 08/27/2018 7:02 PM Care Teams Floral Manager Relationship Specialty Start Date End Date Celso Mack MD [address] [place] [address] PCP - General 12/17/08
--- OUTSIDE RECORDS SUMMARY | 2024-05-28 08:14 | XMS_ITS | Patient Health Record ---
Author Organization [facility] Address [address] [address] Care Team Providers Care Fruit Harvester Machine Operator Name Role Phone Celso Mack Primary Care Provider Maximo BOYER EMANUEL Unavailable [phone] Allergies No Known Allergies Reason For Referral No Information Medications Medication SIG (Take, Route, Frequency, Duration) Notes Start Date End Date Status amLODIPine Besylate 10 MG 1 tablet Orall y Once a day for 30 day(s) Active metFORMIN HCl 500 MG 1 tablet with a saundra l Orally Once a day for 30 day(s) Active Alpha Lipoic Acid 200 MG as directed Orally Active Cetirizine HCl 10 MG 1 tablet Orally Onc e a day for 30 day(s) Active Vitamin B Complex - as directed Orally Active Losartan Potassium 100 MG 1 tablet Orall y Once a day for 30 day(s) Active Vitamin D3 [id number] UNIT/GM as directed Active Atenolol 50 MG 1 tablet Orally Once a day for 30 day(s) Active Vitamin C 500 MG as directed Orally Active Calcium 500 MG 1 tablet with meals Orally Twice a day for 30 day(s) Active CeleXA 20 MG 1 tablet Orally Once a day for 30 day(s) Active Zocor 20 MG 1 tablet in the even ing Orally Once a day for 30 day(s) Active Aspirin 81 81 MG 1 tablet Orally Once a day for 30 day(s) Active Senior Multivitamin Plus Active PriLOSEC 10 MG as directed Orally Active Social History Tobacco Use: Social History Observation Description Date Details (start date - stop date) Never Smoker NA - NA Tobacco Use/Smoking Question Answer Notes Are you a nonsmoker Problems Problem Type SNOMED Code ICD Code Onset Dates Problem Status W/U Status Risk Notes Problem Varicose veins of bilateral lower limbs (46838405593540 106) Varicose veins of both legs with edema (I83.893) Active confirmed Problem Lymphedema (12544950) Lymphedema (I89.0) Active confirmed Plan Of Treatment No Information Insurance Providers Payer Name Payer Address Payer Phone Subscriber Number Group Number Insured Name Patient Relationship to Insured Coverage Start Date Coverage End Date MEDICARE [place] [address] [place], [place] [id number] Scarlett Gómez Self - patient is the insured [facility] [address] [address] [place], [place] [id number] Scarlett Gómez Self - patient is the insured MEDICARE [place] [address] [address] [place], [place] [id number] Scarlett Gómez Self - patient is the insured Medical (General) History Medical History History ICD Code High blood pressure Cataracts Arthritis Asthma Diabetes Surgical History Surgery Date(Month/Year) Knee replacement 02/2017 Hysterectomy 02/1977 Tonsilectomy 1957
--- OUTSIDE RECORDS SUMMARY | 2024-05-28 08:14 | XMS_ITS | Clinical Summary ---
Author Organization [facility] [address] Address [address] [place] [address] Care Team Providers Care Family And Consumer Sciences Teacher Name Role Phone Celso Mack MD Primary Care Provider Allergies Active Allergy Reactions Criticality Noted Date [...] Diagnosed Date PVC (premature ventricular contraction) 08/15/19 Morbid (severe) obesity due to excess calories [...] (08/26/2018): Added automatically from request for surgery [id number] Encounters Date Type Department Care Team Description 05/06/2024 8:00 AM CDT Office Visit [facility] Surgery [address] [address] [place] [address] [place] [address] Christine Nice MD Pancreatic cyst (Primary Dx) 05/06/2024 5:50 AM CDT - 05/06/2024 11:59 PM CDT Hospital Encounter [facility] [address] [place] [address] Pancreatic lesion Discharge Disposition: Discharge to home or self care 03/31/2024 Orders Only [facility] Surgery [address] [facility] [address] [place] [address] [place] [address] Christine Nice MD Pancreatic lesion (Primary Dx) from Last 3 Months Surgical History Surgery Date Site/Laterality Comments HYSTERECTOMY TOTAL KNEE ARTHROPLASTY Right JOINT REPLACEMENT Right toe joint replacement TONSILLECTOMY UPPER ENDOSCOPIC ULTRASOUND W/ FNA COLONOSCOPY CATARACT EXTRACTION, BILATERAL CATARACT EXTRACTION Medical History Medical History Date Comments Sleep apnea Hyperlipidemia Hypertension GERD (gastroesophageal reflux disease) Left bundle branch block Asthma mild Type 2 diabetes mellitus (HCC) d iet controlled Restless leg syndrome Arthritis Nonrheumatic mitral valve regurgitation 05/27/19 22 Nonrheumatic tricuspid valve regurgitation 05/26 SOB (shortness of breath) on exertion Delayed emergence from general anesthesia Uterine cyst had hsyterectomy Family History Medical History Relation Name Comments Alcohol abuse Father Hugh Paula Heart attack Father Hugh Paula Hypertension Father Hugh Paula Hypertension Mother Rose Paula Stroke Mother Rose Paula Asthma Son 1 Wayne Palma Cancer Son 2 Eric Palma Kidney disease Son 3 Juan Gómez Colon cancer Neg Hx Relation Name Status Comments Father Hugh Paula Had DC at ag e 55 Mother Rose Paula She was 70 when she had stroke Son 1 Wayne Woodl Son 2 Eric Woodl Son 3 Juan Gómez Social History Tobacco Use Types Packs/Day Years [...] on file Legal Sex Female 11:56 PM STAVE LOG 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 OPERATOR Gender Identity Female 02/02/2021 10:01 AM STAVE LOG RIPSAW OPERATOR Sexual Orientation Straight 02/02/2021 10 :01 AM STAVE LOG RIPSAW OPERATOR Obstetrics History Last Filed Vital Signs Vital Sign Reading [...] 05/06/2024 8:44 AM CDT Plan of Treatment Health Maintenance Due Date Last Done Comments Depression Screening 1945 Hepatitis C Screening 1945 Osteoporosis Screening-Bone Density Scan 1945 Hepatitis B Screening 01/16/1964 Well Visit 65+ 2011 DTaP/Tdap/Td Vaccine (2 - Td or Tdap) 12/29/2017 12/30/2007 Pneumococcal vaccine 65+ (2 of 2 - PPSV23) 01/30/2019 12/05/2018, 12/03/2014 Zoster Vaccine (3 of 3) 02/03/2019 12/09/2018, 03/23 Fall Risk Assessment 06/13/2022 06/13/2021 Covid-19 Vaccine (4 - 2023-2 5 season) 2023 11/22/2020, 05/10/2020, 04/19/2020 Influenza Vaccine (Season Ended) 2024 11/22/2020, 11/11/2019, 12/05/2018, Additional history exists Medical Devices Implanted Type Area Dot Etcher Device Identifier Shelf Expiration Date Model / Serial / Lot Bilateral Total Knee Arthroplasty Bilateral : Knee Angio-Seal Vip 6fr Closere Device [id number] - [id number] Implanted:Qty: 1 on 06/13/2021 by Korina Christie MD at [facility] 03/27/2022 [id number] / / Procedures Procedure Name Priority Date/Time [...] Electronically signed by: Romeo Munoz M.D. Christine Nice MD IMG MRI PROCEDURES Fin al Result from Last 3 Months Insurance MEDICARE FOR LIFE MEDICARE FOR LIFE FOR LIFE MEDICARE Advance Directives For more information, please contact: [phone] * Full Code (Latest Code Status on File) Date Activated Date Inactivated Comments 06/13/2021 9:35 AM 06/13/2021 3:31 PM * Full Code Date Activated Date Inactivated Comments 08/27/2018 12:08 PM 08/27/2018 7:02 PM Care Teams Family And Consumer Sciences Teacher Relationship Specialty Start Date End Date Celso Mack MD [address] [facility] [address] [place] [address] PCP - General 12/17/08
[2024-05-28 11:04] LABS: Hemoglobin A1C 6.7 % (<5.7)
[2024-05-28 12:03] LABS: Alanine Aminotransferase 19 U/L (6-35); Albumin Level 4.3 g/dL (3.5-5.1); Alkaline Phosphatase 79 U/L (38-126); Anion Gap 11 mmol/L (4-12); Aspartate Amino Transferase 42 U/L (14-36); Bilirubin,Total 0.5 mg/dL (0.2-1.3); Blood Urea Nitrogen 28 mg/dL (7-17); Calcium 9.2 mg/dL (8.4-10.2); Carbon Dioxide 25 mmol/L (22-30); Chloride 104 mmol/L (98-107); Estimated Glomerular Filt Rate 52; Glucose 135 mg/dL (65-110); Potassium 4.3 mmol/L (3.4-5.0); Sodium 140 mmol/L (137-145)
== END 2024-05-28 08:06 | disposition home or self-care (01) ==
LOC: ANHGOSHLAB 08:07
PROVIDERS: PCP Family Medicine; Visit Provider Family Medicine
DX: E11.40 Type 2 diabetes mellitus with diabetic neuropathy, unspecified (principal); I10 Essential (primary) hypertension
CPT/HCPCS: 36415; 80053; 83036

== ENCOUNTER 2024-07-01 01:20 | Day surgery (SDC) | payer MEDICARE, OTHER, SELFPAY ==
[2024-06-25 10:57] VITALS: BMI 38.9
--- OUTSIDE RECORDS SUMMARY | 2024-07-01 01:24 | XMS_ITS | Clinical Summary ---
Author Organization [facility] [place] [address] Address [address] [place] [address] Care Team Providers Care Electron Beam Operator Name Role Phone Celso Mack MD Primary [...] (08/26/2018): Added automatically from request for surgery [id number] Encounters Date Type Department Care Team Description 05/06/2024 8:00 AM CDT Office Visit [facility] Surgery [address] 12th [place] [address] [place] [address] Christine Nice MD Pancreatic cyst (Primary Dx) 05/06/2024 5:50 AM CDT - 05/06/2024 11:59 PM CDT Hospital Encounter [facility] [address] [place] [address] Pancreatic lesion Discharge Disposition: Discharge to home or self care from Last 3 Months Surgical History Surgery [...] Name Status Comments Father Hugh Paula Had [place] at ag e 55 Mother Rose Paula [...] on file Legal Sex Female 11:56 PM FIELD PIPELINES SUPERVISOR Gender Identity Female 02/02/2021 10:01 AM FIELD PIPELINES SUPERVISOR Sexual Orientation Straight 02/02/2021 10 :01 AM FIELD PIPELINES SUPERVISOR Obstetrics History Last Filed Vital Signs Vital [...] history exists Medical Devices Implanted Type Area Director Of Professional Services Device Identifier Shelf Expiration Date Model / Serial / Lot Bilateral Total Knee Arthroplasty Bilateral : Knee Angio-Seal Vip 6fr Closere Device [id number] - [id number] Implanted:Qty: 1 on 06/13/2021 by Korina Christie MD at [facility] [employer] [facility] 03/27/2022 [id number] / / Procedures Procedure Name Priority Date/Time [...] Advance Directives For more information, please contact: [phone] * Full Code (Latest Code Status on File) Date Activated Date Inactivated Comments 06/13/2021 9:35 AM 06/13/2021 3:31 PM * Full Code Date Activated Date Inactivated Comments 08/27/2018 12:08 PM 08/27/2018 7:02 PM Care Teams Electron Beam Operator Relationship Specialty Start Date End Date Celso Mack MD [address] [facility] [address] [place] [address] PCP - General 12/17/08
--- OUTSIDE RECORDS SUMMARY | 2024-07-01 01:24 | XMS_ITS | Referral Summary ---
Author Organization [facility] [place] [address] Address [address] [place] [address] Care Team Providers Care Flag Signaler Name Role Phone Celso Mack MD Primary Care Provider Encounters Date Type Department Care Team Description 05/06/2024 8:00 AM CDT Office Visit [facility] Surgery [address] [facility] [address]th [place] [address] [place] [address] Christine Nice MD Pancreatic cyst (Primary Dx) 05/06/2024 5:50 AM CDT - 05/06/2024 11:59 PM CDT Hospital Encounter [facility] [address] [place] [address] Pancreatic lesion Discharge Disposition: Discharge to home or self care from Last 3 Months Allergies Active Allergy [...] (08/26/2018): Added automatically from request for surgery [id number] Social History Tobacco Use Types Packs/Day Years [...] on file Legal Sex Female 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 [employer] [facility] 03/27/2022 [id number] / / Procedures Procedure Name Priority Date/Time [...] Insurance MEDICARE FOR LIFE MEDICARE FOR LIFE [facility] FOR LIFE MEDICARE Advance Directives For more information, please contact: [phone] * Full Code (Latest Code Status on File) Date Activated Date Inactivated Comments 06/13/2021 9:35 AM 06/13/2021 3:31 PM * Full Code Date Activated Date Inactivated Comments 08/27/2018 12:08 PM 08/27/2018 7:02 PM Care Teams Flag Signaler Relationship Specialty Start Date End Date Celso Mack MD [address] [facility] [address] [place] [address] PCP - General 12/17/08
--- OUTSIDE RECORDS SUMMARY | 2024-07-01 01:24 | XMS_ITS | Continuity of Care Document ---
Author Organization [facility] [employer] [place] Address [address] [place] [address] [place] [address] Phone Care Team Providers Care [employer] Social Studies Tutor Name Role Phone Vince PARISHMariela Unavailable Unavailable Procedures Procedure Date PT RE-EVALUATION THERAPEUTIC EXERCISES NEUROMUSCULAR RE-ED MANUAL THERAPY FUNC ACTIVITY 15 MIN HOT/COLD PACK Carrying, Moving And Handling Objects-Di scharge Carrying, Moving And Handling Objects-Go al THERAPEUTIC EXERCISES NEUROMUSCULAR RE-ED MANUAL THERAPY FUNC ACTIVITY 15 MIN /COLD PACK THERAPEUTIC EXERCISES NEUROMUSCULAR RE-ED MANUAL THERAPY FUNC ACTIVITY 15 MIN HOT/COLD PACK PT RE-EVALUATION THERAPEUTIC EXERCISES NEUROMUSCULAR RE-ED MANUAL THERAPY FUNC ACTIVITY 15 MIN HOT/COLD PACK Carrying, Moving And Handling Objects-Cu rrent Carrying, Moving And Handling Objects-Go al THERAPEUTIC EXERCISES NEUROMUSCULAR RE-ED MANUAL THERAPY HOT/COLD PACK ELECTRIC STIMULATION UNATT THERAPEUTIC EXERCISES NEUROMUSCULAR RE-ED MANUAL THERAPY FUNC ACTIVITY 15 MIN HOT/COLD PACK THERAPEUTIC EXERCISES NEUROMUSCULAR RE-ED MANUAL THERAPY FUNC ACTIVITY 15 MIN HOT/COLD PACK THERAPEUTIC EXERCISES NEUROMUSCULAR RE-ED MANUAL THERAPY FUNC ACTIVITY 15 MIN HOT/COLD PACK THERAPEUTIC EXERCISES NEUROMUSCULAR RE-ED MANUAL THERAPY HOT/COLD PACK THERAPEUTIC EXERCISES NEUROMUSCULAR RE-ED MANUAL THERAPY HOT/COLD PACK THERAPEUTIC EXERCISES NEUROMUSCULAR RE-ED MANUAL THERAPY HOT/COLD PACK PT EVALUATION THERAPEUTIC EXERCISES MANUAL THERAPY /COLD PACK Carrying, Moving And Handling Objects-Cu rrent Carrying, Moving And Handling Objects-Go al Medications Name Dose Freq Route DOC Jul Pain Assess Positive DOC 2012 No Falls or 1 Fall w/o Injury Screened f or Fall Risk Advance Directives Directive Yes / No Effective Date File Name No Information Encounters Encounter Description Practice Location Reason(s) For Visit Diagnoses Date Provider Providers Copied on Encounter [facility] [place] [employer] [address] [place] [address], [id number], tel:[phone] [place] No Information 3 Vince Sierra. [address] [facility], [address], [place], [address], [place]. tel:[phone] Referring Provider: Makeda Woodard , [address] [facility] [address], [place], [address]. tel:[phone] [facility] [place] [place], [id number], tel:[phone] Jew[place] No Information Baldemar-1 7-201 3 Clarke Mariela. [address] [place] [address], [address], [place], [facility], [place]. tel: [phone] Referring Provider: Makeda Woodard , [address] [facility], [place], [address]. tel:[phone] [place], [place] [address], [place], [id number], [place] tel:[phone] Jew[place] No Information 5-201 3 Clarek Mariela. [address] [place] [address], [address], [place], [address], [place]. tel: [phone] Referring Provider: Makeda Woodard , [address] [facility], [place], [address]. tel:[phone] [place] [address], [id number], [place] tel:[phone] Jew[place] No Information 0-201 3 Clarke Mariela. [address] [place] [address] [address], [place], [facility], [place]. tel: [phone] Referring Provider: Makeda Woodard , [address] [place], [address]. tel:[phone] [place], [place] [address] [address] [place] [address], [id number], [place] tel:[phone] Jewell No Information 8-201 3 Clarke Mariela. [address] [place] [address], [address], [place], [facility], [place]. tel: [phone] Referring Provider: Makeda Woodard , [address] [place], [address]. tel:[phone] [place], [place] [address], [id number], [place] tel:[phone] [place] No Information 0 3-201 3 Clarke Mariela. [address] [place] [address], [facility], . tel:[phone] Referring Provider: Makeda Woodard , [address] [facility], [place], [place], [facility]. tel:[phone], [id number], tel:[phone] [place] No Information Aug-0 1-201 3 Clarke Mariela. [address] [place] [address], [facility], . tel:[phone] Referring Provider: Makeda Woodard , [address] [facility], [place], [place], [facility]. tel:[phone] [place] [address], [id number], tel:[phone] Jewell No Information Jul-2 7-201 3 Clarke Mariela. [address] [place] [address], [facility], . tel:[phone] Referring Provider: Makeda Woodard , [address] [facility], [place], [address]. tel:[phone], [id number], tel:[phone] Jewell No Information Jul-2 6-201 3 Clarke Mariela. [address] [place] [address], [facility], . tel:[phone] Referring Provider: Makeda Woodard , [address] [place], [address]. tel:[phone], [id number], tel:[phone] Jewell No Information Jul-2 4-201 3 Clarke Mariela. [address] [place] [address], [facility], . tel:[phone] Referring Provider: Makeda Woodard , [address] [facility], [place], [address]. tel:[phone], [id number], tel:[phone] Jewell No Information 3 Clarkefara Sierra. [address], [facility], . tel:[phone] Referring Provider: Makeda Woodard , [address] [place], [address]. tel:[phone], [id number], tel:[phone] [place] Pain in joint involving shoulder region 3 Clarkefara Mackayi. [address] [place] [address], [address], [facility], . tel:[phone] Referring Provider: Makeda Woodard , [address] [place], [address]. tel:[phone] Family History Family Member Type Diagnosis Age At Onset No Information Payers Payer name Insurance type Covered green party ID Authoriza tion(s) Medicare [place] [id number] POC [id number] For Life Medicare Se condary Only CI [id number] Social History Type Description Quantity Date Captured Comments Sex Female Smoking Status No Information Chief Complaint And Reason For Visit No Information Reason For Referral Reason For Referral No Information History Of Present Illness Encounter Date Complaint History Of Prese nt Illness No Information Functional Status Date Functional Assessmen t No Information Instructions Date Instruction Additional Infor mation No Information Assessments Type Assessment Date No Information Patient Care Teams Name Effective Dates (start - stop) Status Members No Information
--- OUTSIDE RECORDS SUMMARY | 2024-07-01 01:24 | XMS_ITS | Clinical Summary ---
Author Organization [facility] Address [address] [facility] [place] [address] Care Team Providers Care Roll Sheeting Cutter Name Role Phone Celso Mack MD Primary Care Provider [phone] Source Comments [facility],non-owned Affiliates and Associated Physician Practices is amultiple site organization consisting of ambulatory clinics and hospital sitesin [place], [place], [place] and [place]. This disclosure is being madepursuant to the Care Everywhere program and may not contain all information available regarding this patient. Last updated 17.[facility] Allergies No known active allergies Medications * Be aware that medications may not be up to date on this document. Alwaysverify current medications with the patient. sacubitril-vals jarred (Entresto) 97-103 MG tablet Take 97 (ninety seven) tablets to 103 (one hundred three) tablets by mouth 2 times daily 2 Active fluticasone propionate (Flonase) 50 MCG/ACT nasal spray [facility] 2 (two) sprays into each nostril once [...] by mouth once daily Active vitamin D3 (Cholecalcifero l) (25 MCG) 1000 UNIT capsule Take 1 (one) capsule by mouth once daily Active omeprazole (PriLOSEC) 40 MG capsule Take 1 (one) capsule by mouth daily before breakfast Active torsemide (Demadex) 20 MG tablet Take 1 (one) tablet by mouth once daily 90 tablet 3 3 Active Ascorbic Acid (Vitamin C) 500 MG as directed Orally Active Multiple Vitamins-Minera ls (CertaVite Senior/Antioxid ant) TABS 2 Active oyster shell calcium 500 MG tablet 1 tablet with meals Orally Twice a day for 30 day(s) Active carvedilol (Coreg) 6.25 MG tablet Take 1 (one) tablet by mouth 2 times daily 2 Active citalopram (CeleXA) 20 MG tablet Take 1 (one) tablet by mouth once daily Active pramipexole (Mirapex) 1.5 MG tablet Do not drink alcohol.Take with food/milk.Obta in advice for OTCs.May cause drowsiness/diz ziness.May impair driving.Check with your doctor before becoming . 2 Active Entresto 49-51 MG tablet Take 1 (one) tablet by mouth 2 times daily 90 tablet 7 4 Active Social History Tobacco Use Types Packs/Day Years Used Date Smoking Tobacco: Never Smokeless Tobacco: Never Tobacco Cessation:Counseling Given: Not Answered Comments Unknown Sex and Gender Information Value Date Recorded Sex Assigned at Female 05/22/2022 1:37 PM CDT Legal Sex Female 10:15 AM CDT Gender Identity Female 05/22/2022 1:37 PM [...] (2 - 2023-2 5 season) 2023 07/18/2021 DEPRESSION SCREENING 02/26/2024 INFLUENZA VACCINE (Season Ended) 2024 12/06/19 19 HEPATITIS B VACCINE Aged Out No longe [...] on patient's age to complete this topic Insurance MEDICARE Care Teams Roll Sheeting Cutter Relationship Specialty Start Date End Date Celso Mack MD [address] [place] [address] PCP - General Family Medicine 11/28/21
[2024-07-01 08:37] VITALS: BP 142/63; PULSE 74; RESP 20; TEMP 36.6; O2SAT 95; BMI 39.5
[2024-07-01] MEDS: LACTATED RINGERS 1,000 ML 150 ML IV CONT (08:47)
--- NOTE | 2024-07-01 09:11 | WPDHPUPDATE1 ---
History and Physical Update Update Date/Time: 07/01/24 09:11 History and Physical has been reviewed, including an updated exam of the patient. There are NO changes in the patient's condition. Risks, benefits, and alternatives have been discussed and questions answered. Patient agrees to proceed with procedure.
[2024-07-01 09:46] VITALS: BP 101/48; PULSE 71; RESP 18; O2SAT 96
[2024-07-01 09:56] VITALS: BP 96/51; PULSE 66; RESP 18; O2SAT 96
[2024-07-01 10:06] VITALS: BP 132/56; PULSE 71; RESP 18; O2SAT 98
[2024-07-01 11:09] LABS: Glucose Point of Care 130 mg/dl (65-105)
== END 2024-07-01 10:16 | disposition home or self-care (01) ==
PROVIDERS: PCP Family Medicine; Visit Provider Internal Medicine Gastroenterology
PROC: 0DJ08ZZ Inspection of Upper Intestinal Tract, Via Natural or Artificial Opening Endoscopic (ICD-10-PCS; CPT 43239; principal; 2024-07-01 09:45)
DX: K29.50 Unspecified chronic gastritis without bleeding (principal); K44.9 Diaphragmatic hernia without obstruction or gangrene; K21.9 Gastro-esophageal reflux disease without esophagitis; E78.5 Hyperlipidemia, unspecified; R07.89 Other chest pain; E88.810 Metabolic syndrome; M17.0 Bilateral primary osteoarthritis of knee; E11.40 Type 2 diabetes mellitus with diabetic neuropathy, unspecified; E55.9 Vitamin D deficiency, unspecified; G47.33 Obstructive sleep apnea (adult) (pediatric); F41.9 Anxiety disorder, unspecified; G47.30 Sleep apnea, unspecified; G25.81 Restless legs syndrome; I11.0 Hypertensive heart disease with heart failure; I44.7 Left bundle-branch block, unspecified; G56.00 Carpal tunnel syndrome, unspecified upper limb; I07.1 Rheumatic tricuspid insufficiency; Z79.51 Long term (current) use of inhaled steroids; Z79.82 Long term (current) use of aspirin; Z79.84 Long term (current) use of oral hypoglycemic drugs; Z98.890 Other specified postprocedural states; Z87.19 Personal history of other diseases of the digestive system; Z80.0 Family history of malignant neoplasm of digestive organs; Z80.1 Family history of malignant neoplasm of trachea, bronchus and lung; Z82.49 Family history of ischemic heart disease and other diseases of the circulatory system
CPT/HCPCS: 43239; 82948; 88305; J2003; J2704; J7120

== ENCOUNTER 2024-08-21 08:41 | Outpatient (CLI) | payer MEDICARE, OTHER, SELFPAY ==
--- NOTE | 2024-08-21 08:59 | ECHO_ITS ---
Patient Info Name: Scarlett Gómez Age: 79 years : 1945 Gender: Female Ht: 63 in Wt: 220 lbs BSA: 2.16 m2 HR: 76 bpm BP: 153 / 70 mmHg Technical Quality: Good Exam Date: 08/21/2024 9:05 AM Patient Status: O Admit Date: 08/21/2024 Exam Type: CA echo doppler color flow Complete two-dimensional, color flow and Doppler transthoracic echocardiogram is performed. Strain analysis performed. Lumber Trimmer: Jacqueline Skinner Attending Provider: Tom Hernandez DO Summary 1. Complete two-dimensional, color flow and Doppler transthoracic echocardiogram is performed. 2. Left ventricular chamber dimension is mildly enlarged. 3. Left ventricular systolic function is moderately globally reduced, estimated at 40-45. 4. There is mild concentric increased left ventricular wall thickness. 5. The left ventricular diastolic function is grade I diastolic dysfunction. 6. E/e' 14 is mildly elevated. 7. Global longitudinal strain is abnormal at -11.6%. 8. Left atrial chamber dimension is mildly enlarged. 9. There is mild aortic valve sclerosis. 10. There is mild aortic valve regurgitation. 11. The mitral valve has a moderately calcified annulus. 12. There is moderate to severe mitral valve regurgitation. 13. There is trivial pericardial effusion. Left Ventricle E/e' 14 is mildly elevated. Left ventricular chamber dimension is mildly enlarged. Left ventricular systolic function is moderately globally reduced, estimated at 40-45. There is mild concentric increased left ventricular wall thickness. The left ventricular diastolic function is grade I diastolic dysfunction. Global longitudinal strain is abnormal at -11.6%. Right Ventricle Right ventricular chamber dimension is normal. Right ventricular systolic function is normal. Left Atria Left atrial chamber dimension is mildly enlarged. Right Atria Right atrial chamber dimension is normal. Aortic Valve The aortic valve is probable trileaflet. There is mild aortic valve sclerosis. There is no aortic valve stenosis. There is mild aortic valve regurgitation. Pulmonic Valve There is no pulmonic regurgitation. Mitral Valve The mitral valve has a moderately calcified annulus. There is no mitral valve stenosis. There is moderate to severe mitral valve regurgitation. Tricuspid Valve There is no tricuspid valve regurgitation. Pericardium/Pleural There is trivial pericardial effusion. Inferior Vena Cava Normal inferior vena cava with >50% collapse upon inspiration consistent with normal right atrial pressure, 10 mmHg. Aorta The aortic root size at the sinus of Valsalva is normal. Left Ventricular Outflow Tract Name Value Normal LVOT 2D LVOT Diameter 1.9 cm LVOT Doppler LVOT Peak Velocity 116 cm/s LVOT Peak Gradient 5 mmHg LVOT Mean Gradient 3 mmHg LVOT VTI 27 cm LVOT VTI/AV VTI Ratio 0.7 LVOT Stroke Volume 78 ml LVOT CO 5.8 l/min LVOT CI 2.7 l/min/m2 Pulmonic Valve Name Value Normal RVOT Doppler RVOT Peak Velocity 86 cm/s RVOT Peak Gradient 3 mmHg PV Doppler PV Peak Velocity 106 cm/s PV Peak Gradient 5 mmHg Mitral Valve Name Value Normal MV Regurgitation Doppler MR Peak Gradient 131 mmHg MV Diastolic Function MV E Peak Velocity 101 cm/s MV A Peak Velocity 132 cm/s MV E/A 0.8 MV Decel Time (PW) 188 ms Tricuspid Valve Name Value Normal TV Regurgitation Doppler TR Peak Velocity 290 cm/s TR Peak Gradient 34 mmHg Estimated PAP/RSVP RA Pressure 10 mmHg <=5 PA Systolic Pressure 44 mmHg <36 RV Systolic Pressure 44 mmHg <36 TV Annular TDI TV Lateral Kaila s' Velocity 12.5 cm/s >=9.5 Aorta Name Value Normal Ascending Aorta Ao Root Diameter (MM) 2.9 cm Ao Root Diam Index (MM) 1.3 cm/m2 Aortic Valve Name Value Normal AV Doppler AV Peak Velocity 175 cm/s AV Peak Gradient 10 mmHg AV Mean Gradient 6 mmHg AV VTI 39 cm AV Area (Cont Eq VTI) 2.0 cm2 >=3.0 AV Area (Cont Eq Bertin) 1.9 cm2 AV DI (Bertin) 0.66 AV Regurgitation 2D LVOT Area 2.9 cm2 Ventricles Name Value Normal LV Dimensions 2D/MM IVS Diastolic Thickness (2D) 1.0 cm 0.6-1.0 IVS Diastole Thickness (MM) 1.3 cm 0.6-0.9 LVID Diastole (2D) 5.0 cm 3.8-5.2 LVID Diastole (MM) 7.6 cm 3.8-5.2 LVIW Diastolic Thickness (2D) 1.0 cm 0.6-0.9 LVIW Diastolic Thickness (MM) 1.0 cm 0.6-0.9 LVID Systole (2D) 3.8 cm 2.2-3.5 LVID Systole (MM) 5.8 cm 2.2-3.5 LVOT Diameter 1.9 cm LV Mass (2D Cubed) 182.94 g 67.00-162.00 LV Mass Index (2D Cubed) 85 g/m2 43-95 Relative Wall Thickness (2D) 0.41 <=0.42 LV Mass (MM Cubed) 437.21 g 67.00-162.00 LV Mass Index (MM Cubed) 203 g/m2 43-95 Relative Wall Thickness (MM) 0.27 LV Fractional Shortening/Ejection Fraction 2D/MM LV Fractional Shortening (2D) 25 % 27-45 LV Fractional Shortening (MM) 24 % 27-45 LV EF (MM Teichholz) 46 % LV EF (2D Teichholz) 49 % LV Diastolic Volume (4C MOD) 127 ml LV EF (4C MOD) 51 % LV Diastolic Volume (2C MOD) 136 ml LV EF (2C MOD) 46 % LV Diastolic Volume (BP MOD) 132 ml 46-106 LV Diastolic Volume Index (BP MOD) 61 ml/m2 29-61 LV Systolic Volume (BP MOD) 67 ml 14-42 LV Systolic Volume Index (BP MOD) 31 ml/m2 8-24 LV EF (BP MOD) 49 % 54-74 LV Diastolic Length (4C) 8.8 cm LV Systolic Length (4C) 7.5 cm LV Stroke Volume (4C MOD) 65 ml Atria Name Value Normal LA Dimensions LA Dimension (MM) 4.1 cm 2.7-3.8 LA Volume (4C A-L) 69 ml LA Volume (BP A-L) 76 ml RA Dimensions RA Systolic Major Firestone Length (4C) 5.4 cm 2.2-2.8 RA Area (4C) 14.7 cm2 <=18.0 EchoPAC Name Value Normal AutoEF LVCO_BiP_Q (Weiw3TGQ) 4.7 l/min LVEF_BiP_Q (Lwci0XXV) 45 % LVSV_BiP_Q (Mgse3YGP) 71 ml LVVED_BiP_Q (Axqs0GMK) 156 ml LVVES_BiP_Q (Hroj0XBY) 85 ml HR_4Ch_Q (Kxdg0YDO) 74 bpm LVCO_4Ch_Q (Bdvl7TWM) 4.8 l/min LVEF_4Ch_Q (Myor7PCO) 50 % LVLd_4Ch_Q (Rzuj6SJX) 8.8 cm LVLs_4Ch_Q (Glzy5TQK) 7.8 cm LVSV_4Ch_Q (Ffxq1YQO) 65 ml LVVED_4Ch_Q (Xgdm4BAI) 130 ml LVVES_4Ch_Q (Ugyx9YKQ) 65 ml HR_2Ch_Q (Ajpe5BLZ) 73 bpm LVCO_2Ch_Q (Ezej3UJV) 4.6 l/min LVEF_2Ch_Q (Yezy3KHD) 38 % LVLd_2Ch_Q (Wjsi0RNP) 8.7 cm LVLs_2Ch_Q (Tsmx5NWB) 7.4 cm LVSV_2Ch_Q (Fcbi9CCD) 63 ml LVVED_2Ch_Q (Vyye1DMB) 167 ml LVVES_2Ch_Q (Iatj3MNW) 104 ml KAYLA LV Apical Anterior Longitudinal Strain (KAYLA) -10.9 % LV Apical Anteroseptal Longitudinal Strain (KAYLA) 3.1 % LV Apical Inferior Longitudinal Strain (KAYLA) -7.6 % LV Apical Lateral Longitudinal Strain (KAYLA) -7.2 % LV Apical Posterior Longitudinal Strain (KAYLA) -9.7 % LV Apical Septal Longitudinal Strain (KAYLA) -9.5 % AV Closure (KAYLA) 477 ms LV Basal Anterior Longitudinal Strain (KAYLA) -16.8 % LV Basal Anteroseptal Longitudinal Strain (KAYLA) -7.2 % LV Basal Inferior Longitudinal Strain (KAYLA) -8.5 % LV Basal Anterolateral Longitudinal Strain (KAYLA) -25.3 % LV Basal Inferolateral Longitudinal Strain (KAYLA) -16.9 % LV Basal Inferoseptal Longitudinal Strain (KAYLA) -16.7 % LV Global Longitudinal Strain (2C KAYLA) -11.1 % LV Global Longitudinal Strain (4C KAYLA) -14.4 % LV Global Longitudinal Strain (APLAX KAYLA) -9.3 % LV Global Longitudinal Strain (KAYLA) -11.6 % LV Mid Anterior Longitudinal Strain (KAYLA) -17.5 % LV Mid Anteroseptal Longitudinal Strain (KAYLA) -8.5 % LV Mid Inferior Longitudinal Strain (KAYLA) -4.2 % LV Mid Anterolateral Longitudinal Strain (KAYLA) -21.0 % LV Mid Inferolateral Longitudinal Strain (KAYLA) -17.2 % LV Mid Inferoseptal Longitudinal Strain (KAYLA) -12.2 % Report Signatures
== END 2024-08-21 08:42 | disposition home or self-care (01) ==
LOC: ANHCARD 08:43
PROVIDERS: PCP Family Medicine; Visit Provider Internal Medicine Cardiovascular Disease
DX: I42.9 Cardiomyopathy, unspecified (principal); I35.8 Other nonrheumatic aortic valve disorders; I08.0 Rheumatic disorders of both mitral and aortic valves
CPT/HCPCS: 93306

== ENCOUNTER 2024-08-27 10:15 | Outpatient (CLI) | payer MEDICARE, OTHER, SELFPAY ==
--- NOTE | ~2024-08-27 | MM_ITS ---
EXAMINATION: MM screening [place] [facility] w [facility] HISTORY: Screening mammogram TECHNIQUE: Craniocaudal and mediolateral oblique 3-D tomosynthesis images were obtained and synthetic 2-D images were generated. CAD analysis was submitted and interpreted. COMPARISON: 07/12/2023, 02/27/2022, 09/06/2020 BREAST PARENCHYMAL COMPOSITION:Not Dense. There are scattered areas of fibroglandular density. FINDINGS: No suspicious mass, calcification, or architectural distortion are identified in either hermelinda ast to suggest malignancy. There has been no suspicious interval change. IMPRESSION: No mammographic evidence of malignancy. Recommend routine screening mammography in one year. BI-RADS Category 1: Negative Reviewed, dictated and finalized at location .
--- OUTSIDE RECORDS SUMMARY | 2024-08-27 10:24 | XMS_ITS | Clinical Summary ---
Author Organization [facility] Address [address] [place] [address] Care Team Providers Care Dry Wall Finisher Name Role Phone Celso Mack MD Primary Care Provider [phone] Source Comments [facility],non-owned Affiliates and Associated Physician Practices is amultiple site organization consisting of ambulatory clinics and hospital sitesin [place], [place], [place] and [place]. This disclosure is being madepursuant to the Care Everywhere program and may not contain all information available regarding this patient. Last updated 17.[facility] Allergies No known active allergies Medications * Be aware that medications may not be up to date on this document. Alwaysverify current medications with the patient. sacubitril-vals jarred (Entresto) 97-103 MG tablet Take 97 (ninety seven) tablets to 103 (one hundred three) tablets by mouth 2 times daily 2 Active fluticasone propionate (Flonase) 50 MCG/ACT nasal spray [place] 2 (two) sprays into each nostril once [...] 10:24 AM CDT Height 160 cm (5' 2.99) 12/18/2022 10:24 AM CDT Body Mass Index [...] age to complete this topic Insurance MEDICARE MEDICARE SELF PAY NO INSURANCE Member Subscriber Plan / Payer (Ef fective for All Dates) Name:Scarlett Gómez Member ID:Not on file Relation to Subscriber:Not on file Name:SCARLETT GÓMEZ Subscriber ID:Not on file (Home) Address: [address] [place] [phone] Payer ID:Not on file Group ID:Not on file Type:Self Pay Address: [place], [place] Care Teams Dry Wall Finisher Relationship Specialty Start Date End Date Celso Mack MD [address] [place] [address] PCP - General Family Medicine 11/28/21
--- OUTSIDE RECORDS SUMMARY | 2024-08-27 10:24 | XMS_ITS | Referral Summary ---
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 Gender Identity Female 02/02/2021 10:01 AM COAL HAULER OPERATOR Sexual Orientation Straight 02/02/2021 10 :01 AM COAL HAULER OPERATOR Last Filed Vital Signs Vital Sign [...] 8:44 AM CDT Height 160 cm (5' 3) 05/06/2024 8:44 AM CDT Body Mass Index 40.18 05/06/2024 8:44 AM CDT Plan of Treatment Not on file Medical Devices Implanted Type Area Sewage Disposal Engineer Device Identifier Shelf Expiration Date Model / Serial / Lot Bilateral Total Knee Arthroplasty Bilateral : Knee Angio-Seal Vip 6fr Closere Device [id number] - [id number] Implanted:Qty: 1 on 06/13/2021 by Korina Christie MD at [facility] 03/27/2022 [id number] / / Insurance MEDICARE FOR LIFE MEDICARE FOR LIFE FOR LIFE MEDICARE Advance Directives For more information, please contact: [phone] * Full Code (Latest Code Status on File) Date Activated Date Inactivated Comments 06/13/2021 9:35 AM 06/13/2021 3:31 PM * Full Code Date Activated Date Inactivated Comments 08/27/2018 12:08 PM 08/27/2018 7:02 PM Care Teams Commercial Credit Specialist Relationship Specialty Start Date End Date Celso Mack MD [address] [facility] [address] [place] [address] PCP - General 12/17/08
--- OUTSIDE RECORDS SUMMARY | 2024-08-27 10:25 | XMS_ITS | Patient Health Record ---
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) Active confirmed Problem Lymphedema (09779746) Lymphedema (I89.0) Active confirmed Plan Of Treatment No Information Insurance Providers Payer Name Payer Address Payer Phone Subscriber Number Group Number Insured Name Patient Relationship to Insured Coverage Start Date Coverage End Date MEDICARE [place] [address] [place], [place] [id number] Scarlett Gómez Self - patient is the insured [facility] [address] [address] [place], [place] [id number] Scarlett Gómez Self - patient is the insured MEDICARE [place] [address] [address] [place], [place] [id number] Scarlett Gómez Self - patient is the insured Medical (General) History Medical History History ICD Code High blood pressure Cataracts Arthritis Asthma Diabetes Surgical History Surgery Date(Month/Year) Knee replacement 02/2017 Hysterectomy 02/1977 Tonsilectomy 1957
--- OUTSIDE RECORDS SUMMARY | 2024-08-27 10:25 | XMS_ITS | Clinical Summary ---
Author Organization [facility] [place] [address] Address [address] [place] [address] Care Team Providers Care Gyroscopic Engineering Technician Name Role Phone Celso Mack MD Primary [...] (08/26/2018): Added automatically from request for surgery [id number] Surgical History Surgery Date Site/Laterality Comments HYSTERECTOMY [...] leg syndrome Arthritis Nonrheumatic mitral valve regurgitation 04/01/20 22 Nonrheumatic tricuspid valve regurgitation 05/26 SOB [...] Name Status Comments Father Hugh Paula Had NE at ag e 55 Mother Rose Paula She was 70 when she had stroke Son 1 Wayne Palma Son 2 Eric Palma Son 3 Juan Gómze Social History Tobacco Use Types Packs/Day Years [...] on file Legal Sex Female 11:56 PM ESTIMATOR PAPERBOARD BOXES Gender Identity Female 02/02/2021 10:01 AM ESTIMATOR PAPERBOARD BOXES Sexual Orientation Straight 02/02/2021 10 :01 AM ESTIMATOR PAPERBOARD BOXES Obstetrics History Last Filed Vital Signs Vital [...] history exists Medical Devices Implanted Type Area Channeling Machine Operator Device Identifier Shelf Expiration Date Model / Serial / Lot Bilateral Total Knee Arthroplasty Bilateral : Knee Angio-Seal Vip 6fr Closere Device [id number] - [id number] Implanted:Qty: 1 on 06/13/2021 by Korina Christie MD at [facility] 03/27/2022 [id number] / / Insurance MEDICARE [employer] MEDICARE [facility] Address: [facility] [address] [place] [address] FOR LIFE FOR LIFE MEDICARE Advance Directives For more information, please contact: [phone] * Full Code (Latest Code Status on File) Date Activated Date Inactivated Comments 06/13/2021 9:35 AM 06/13/2021 3:31 PM * Full Code Date Activated Date Inactivated Comments 08/27/2018 12:08 PM 08/27/2018 7:02 PM Care Teams Gyroscopic Engineering Technician Relationship Specialty Start Date End Date Celso Mack MD [address] [facility] [address] [place] [address] PCP - General 12/17/08
== END 2024-08-27 10:16 | disposition home or self-care (01) ==
LOC: ANHIMG 10:18
PROVIDERS: PCP Family Medicine
DX: Z12.31 Encounter for screening mammogram for malignant neoplasm of breast (principal)
CPT/HCPCS: 77063; 77067

== ENCOUNTER 2024-09-30 08:03 | Outpatient (CLI) | payer MEDICARE, OTHER, SELFPAY ==
--- OUTSIDE RECORDS SUMMARY | 2024-09-30 08:09 | XMS_ITS | Continuity of Care Document ---
Author Name [facility] Organization [facility] Care Team Providers Care Fruit Picker Machine Operator Name Role Phone [facility] Unavailable Unavailable Problems Combined list of problems from Department of Defense and Veterans Affairs facilities. It does not include entries that were removed or entered in error. Problem Status Onset Date Problem Type Date of Resolution Comments Source VARICOSE VEINS Active Condition DoD BUNION Active Condition DoD PLANTAR FASCIITIS Active Condition [facility] Imaging Studies Nonspecific Abnormal Findings Inactive Condition DoD STYE (HORDEOLUM EXTERNUM) - RIGHT EYE Inactive Condition [facility] BUNION RIGHT Active Condition DoD anxiety Active Condition [facility] Laboratory Studies Active Condition [facility] Administrative Evaluation Services Active Condition [facility] Preventive Medicine Estab Patient Checkup Adult 40-64 Active Condition [facility] joint pain, localized in the shoulder Active Condition [facility] Total Abdominal Hysterectomy Active Condition [facility] OSTEOARTHRITIS Active Condition [facility] ESSENTIAL HYPERTENSION Active Condition [facility] HYPERLIPIDEMIA FAMILIAL HYPERCHOLESTEROLEMIA Active Condition [facility] SINUSITIS Active Condition [facility] visit for: issue repeat prescription for medication Active Condition [facility] X-Ray Inactive Condition [facility] EPISCLERITIS Active Condition [facility] EPISCLERITIS RIGHT EYE Active Condition [facility] Patient Education Dietary Energy Expenditure Inactive Condition [facility] Patient Education Dietary Changing Eating Habits Inactive Condition [facility] OBESITY Active Condition [facility] NORMAL ROUTINE HISTORY AND PHYSICAL Inactive Condition [facility] visit for: administrative purpose Active Condition Do D SLEEP APNEA OBSTRUCTIVE Active Condition [facility] visit for: screening exam malignant neoplasm breast Inactive Condition [facility] Medications Combined list of outpatient medications from [...] ory Pharmac y carvedilol 12.5 mg tablet = 1 tab(s), Oral, every 12 hr, # 180 EA, [...] ory Pharmac y citalopram 20 mg tablet = 1 tab(s), Oral, Daily, # 90 EA, 2 total refill(s ), Hard Stop Oral (given by mouth) Ordered 01/01/2025 5 2024 90.0 Ambulat ory Pharmac y empaglifloz in 10 mg tablet = 1 tab(s), Oral, Daily, # 90 EA, 2 total [...] EA, 3 total refill(s ), Hard Stop Complet ed 06/19/2024 4 2024 100.0 Ambulat ory Pharmac y Freestyle 28g lancets [100EA] See dose instruct ions in comments , # 100 EA, 2 total refill(s ), Acute Complet ed 02/21/2023 3 2022 100.0 Ambulat ory Pharmac y Freestyle [place] Lite Monitor See Instruct ions, Use as directed to test in the morning. , # 1 EA, 0 total refill(s ), Soft Stop Ordered 5 2024 1.0 Ambulat ory Pharmac y freestyle lite (glucose) test strip [50EA] See Instruct ions, every morning, # 100 EA, 3 total refill(s ), Hard Stop Complet ed 06/19/2024 4 2024 100.0 Ambulat ory Pharmac y freestyle lite (glucose) test strip [50EA] See dose instruct ions in comments , # 100 EA, 2 total refill(s ), Acute Complet ed 02/21/2023 3 2022 100.0 Ambulat ory Pharmac y glucose test strip (freestyle lite) See Instruct ions, # 100 EA, 3 total refill(s ), Soft Stop Ordered 5 2024 100.0 Ambulat ory Pharmac y Jardiance 10 mg tablet 10 mg, Oral, Daily, # 30 EA, 5 total refill(s ), Hard Stop Oral (given by mouth) Discont inued 01/07/2024 4 2023 30.0 Ambulat ory Pharmac y lancet freestyle 28g See Instruct ions, # 100 EA, 3 total refill(s ), Soft Stop Ordered 5 2024 100.0 Ambulat ory Pharmac y metFORMIN 500 mg oral tablet, extended release TAKE ONE TABLET TWICE DAILY, # 180 EA, 1 total refill(s ), Acute Complet ed 11/16/2022 3 2022 180.0 Ambulat ory Pharmac y metFORMIN XR 500 mg/24 hour tablet = 1 tab(s), Oral, Daily, # 90 EA, 2 total refill(s ), Hard Stop Oral (given by mouth) Ordered 01/01/2025 5 2024 90.0 Ambulat ory Pharmac y metFORMIN XR 500 mg/24 hour tablet 500 mg, Oral, BID, # 180 EA, 3 total refill(s ), Hard Stop Oral (given by mouth) Complet ed 12/11/2023 3 2023 180.0 Ambulat ory Pharmac y omeprazole DR 40 mg capsule = 1 cap(s), Oral, Daily, # 90 EA, 2 total [...] 3 2022 45.0 Ambulat ory Pharmac y sacubitril- valsartan 97 mg-103 mg tablet = 1 tab(s), Oral, BID, # 180 EA, 2 total refill(s ), Hard Stop Oral (given by mouth) Ordered 01/01/2025 5 2024 180.0 Ambulat ory Pharmac y simvastatin 20 mg [...] ory Pharmac y simvastatin 20 mg tablet = 1 tab(s), Oral, Daily, # 90 EA, 2 total [...] Pharmac y spironolact one 25 mg tablet = 1 tab(s), Oral, Daily, # 90 EA, 2 total refill(s ), Hard Stop Oral (given by mouth) Ordered 01/01/2025 5 2024 90.0 Ambulat ory Pharmac y torsemide 20 mg tablet 20 mg, Oral, Daily, # 90 EA, 2 total refill(s ), Hard Stop Oral (given by mouth) Discont inued 01/07/2024 3 2023 90.0 Ambulat ory Pharmac y torsemide 20 mg tablet = 1 tab(s), Oral, Daily, # 90 EA, 2 total refill(s ), Hard Stop Oral (given by mouth) Ordered 01/01/2025 5 2024 90.0 Ambulat ory Pharmac y Allergies, Adverse Reactions, Alerts Combined list of allergies from Department of Defense and Veterans Affairs facilities. It does not include entries that were removed or entered in error. Substance Category Reaction Severity Reaction type Status Date Reported Comments Source NO OUTPUT FOR NCID [id number] Drug allergy (disorder) active 10/17/2007 [facility] Omero SCOTT ([facility] Immunizations Combined list of available immunizations from the Department of Defense and Veterans Affairs facilities. Immunization Series Date Given Administered By Site Reaction Lot Number CVX Code Drug Service Girl Status Comments Source zoster recombinant 2023 () Not Given zoster recombina nt DoD zoster recombinant 2023 () Not Given zoster recombina nt DoD SARS-CoV-2 mRNA(towilliannamdelmar opr-zyvg-jhp) vac 2021 217 PFIZER complet ed SARS-CoV- 2 mRNA(towillian nameran-t ris-suc)v ac 07/18/21 Given Ambulat ory Pharmac y COVID-19, mRNA, LNP-S, PF, 30 mcg/0.3 mL dose, johana-sucrose 2021 ALUL, () Not Given COVID-19, mRNA, LNP-S, PF, 30 mcg/0.3 mL dose, johana-sucr ose DoD influenza, high-dose, quadrivalent 2019 ALUL, () Not Given influenza , high-dose , quadrival ent DoD zoster recombinant 2019 LENNY BROTHERS () Not Given zoster recombina nt DoD zoster vaccine, inactivated 2018 187 GlaxoSmithK[employer] ne complet ed zoster vaccine, inactivat ed 12/09/18 Given Ambulat ory Pharmac y influenza, seasonal,high dose-pf 2018 135 sanofi pasteur complet ed influenza , seasonal, high dose-pf 12/05/18 Given Ambulat ory Pharmac y Pneumococcal conjugate PCV 13 2018 ALUL, () Not Given Pneumococ miguel a conjugate PCV 13 DoD zoster recombinant 2018 ALUL, () Not Given zoster recombina nt DoD Influenza, seasonal, injectable, preservative free 2015 ALUL, () Not Given Influenza , seasonal, injectabl e, preservat arnel free DoD zoster vaccine live 2011 TRANSCR IBED 121 [employer]ck [employer] Inc complet ed zoster vaccine live 03/23/11 Given Ambulat ory Pharmac y tetanus, diphtheria, acellular pertu is 2007 zzRig ht Arm [id number] sanofi pasteur complet ed tetanus, diphtheri a, acellular pertussis 12/30/07 Given Ambulat ory Pharmac y tetanus toxoid, reduced diphtheria toxoid, and acellular pertu is vaccine, adsorbed 1 2007 Unknown, Provider [id number] 115 Sanofi Pasteur (PMC) complet ed tetanus toxoid, reduced diphtheri a toxoid, and acellular pertussis vaccine, adsorbed DoD influenza virus vaccine, whole virus 2000 zzLsanjuanita t Arm [id number] 16 sanofi pasteur complet ed influenza virus vaccine, whole virus 01/13/01 Given Ambulat ory Pharmac y influenza virus vaccine, whole virus 1 2000 Unknown, Provider [id number] 16 Sanofi Pasteur ([facility]MC) complet ed influenza virus vaccine, whole virus DoD Encounters Combined list of: 1) Encounters from Department of Veterans Affairs facilities going backup to the last 18 months, not all VA inpatient encounters are included; 2) Encounters from the Department of Defense facilities going backup to 280 months. Location Location Details Encounter Type Encounter Number Reason For Visit Attending Provider ADM Date DC Date Status Disposition Source [address] [place] [address])([facility] ) OUTPATIENT [id number] rt knee pain x 4 days, unrelie hollie by CINDI Conklin 06/28 Released w/o Limitations [address] [place] [address])([facility] [address] [place] [address])([facility] ) TELE CONSULT [id number] Med RefVIRGIE Farias 07/[address] [place] [address])([facility] [address] [place] [address])([facility] ) OUTPATIENT [id number] hyperte nsion THEODORE BRAN 08/11 Released w/o Limitations [address] [place] [address])([facility] [address] [place] [address])([facility] ) TELE CONSULT [id number] questio ns about meds THEODORE BRAN 08/[address] [place] [address])([facility]) [address] [place] [address] Group Omero Shahram [facility]) OUTPATIENT [id number] ANGELO LOU 08/24 Released w/o Limitations [address] [place] [address] Group [facility] Shahram [facility])(N utritio nal Medicin e) [address] [place] [address] Omero [facility])([facility]) TELE CONSULT [id number] med refills ERENDIRA AVILA 08/[address] [place] [address] Group [facility])([facility]) [address] [place] [address] [facility])([facility]) OUTPATIENT [id number] follow- up HTN, HLP, brest exam THEODORE BRAN 10/04 Released w/o Limitations [address] [place] [address] [facility])([facility]) [address] [place] [address] [facility])(Opt ometry) OUTPATIENT [id number] pt here from [facility] for possibl e corneal abrasio TIARRA Aden 10/04 Released w/o Limitations [address] [place] [address] Omero SADIEShahram [facility])(O ptometr y) [address] [place] [address] [facility])([facility] ) TELE CONSULT [id number] Med renewal ERENDIRA AVILA 11/[address] [place] [address] [facility])([facility] T[facility]) [address] [place] [address] [facility])([facility]) TELE CONSULT [id number] weight loss program / ERENDIRA Meza 11/[address] [place] [address] Group [facility])([facility] Tm) [facility]mero Shahram [facility])([facility]) TELE CONSULT [id number] med renewal VIRGIE BOWLING 03/[address] [place] [address] Group [facility])([facility] Intern[facility] l Medicin e Tm) [facility])([facility]) OUTPATIENT [id number] cold, cough, sinus x 12 days JUDITH CAMACHO 06/06 Released w/o Limitations [address] [place] [address] [facility])([facility] Tm) [address] [place] [address] Omer[facility] ) TELE CONSULT [id number] Blood work results and Possibl e tendoni tis VIRGIE BOWLING P 08/[address] [place] [address] O[facility] ([facility] Intern[facility] l Medicin e Tm) [address] [place] [address] [facility])([facility] Non-GME FHI1) TELE CONSULT [id number] hystere ctomy GERMAN HERRMANN M 09/[address] [place] [address] [facility])(F amily Practic e Non-GME FHI1) [address] [place] [address] [facility])([facility] ) OUTPATIENT [id number] f/u bloodwo rk RODRI [facility] CPT 10/16 Released w/o Limitations [address] [place] [address] Omer[facility] ([facility] Intern[facility] l Medicin e Tm) [address] [place] [address] [facility])([facility] ) TELE CONSULT [id number] rad review RODRI [facility] 11/[address] [place] [address] O[facility])([facility] cott Interna l Medicin e Tm) [address] [place] [address] [facility])([facility] ) TELE CONSULT [id number] Request s Appt. KHUSHBOO WONG 05/[address] [place] [address] [facility])([facility] Intern[facility] l Medicin e Tm) [address] [place] [address] [facility])([facility] ) OUTPATIENT [id number] f/u ER [id number] , shortne ss of breath, chest discomf ort RODRI, [facility] CPT 06/08 Released w/o Limitations [address] [place] [address] [facility])([facility] Interna l Medicin e Tm) [address] [place] [address] [facility])([facility] ) TELE CONSULT [id number] Test Results and change Meds KHUSHBOO WONG M 06/[address] [place] [address] [facility])([facility] Interna l Medicin e Tm) [address] [place] [address] [facility])([facility] ) OUTPATIENT [id number] foot pain RODRI, W[facility]ATT CPT 10/02 Released w/o Limitations [address] [place] [address] Group Omer[facility])(S cott Interna l Medicin e Tm) [address] [place] [address] [facility]o [facility])([facility] ) TELE CONSULT [id number] [place] ERENDIRA Delmar 10/[address] [place] [address] [facility])([facility] cott Interna l Medicin e Tm) [address] [place] [address] [facility])([facility] ) TELE CONSULT [id number] med refill AUSTINERENDIRA ARROYO Delmar 11/[address] [place] [address] Omero [facility])(S cott Interna l Medicin e Tm) [address] [place] [address] Moero [facility])([facility] ) TELE CONSULT [id number] lab results RODRI, WYATT CPT 11/[address] [place] [address] Omero [facility])(S cott Interna l Medicin e Tm) [address] [place] [address])([facility] ) OUTPATIENT [id number] fol b.p. and chol RODRI, [facility] CPT 12/29 Released w/o Limitations [address] [place] [address] [facility])(S cott Interna l Medicin e Tm) [address] [place] [address] [facility]o [facility])([facility] ) OUTPATIENT [id number] left ankle pain RAUL TAM 07/20 Released w/o Limitations [address] [place] [address] [facility])([facility] cott Interna l Medicin e Tm) [address] [place] [address] Omero [facility])(Arian matology) OUTPATIENT [id number] painful veins KUSUM VELAZQUEZ 08/11 Released w/o Limitations [address] [place] [address])(Katherine [facility]) Procedures Combined list of: 1) Procedures from Department of Veterans Affairs facilities [facility], not all VA non-surgical procedures are included; 2) All procedures from the Department of Defense facilities. Procedure Procedure Type Code Date Perfomer Comments Sourc e No data available for this section Ambulato ry Pharmacy Ophthalmological New Patient Start Intermediate Level Care Ophthalmological New Patient Start Intermediate Level Care [id number] TIARRA BROTHERS [facility] Medical Nutrition Therapy Group (2 or More Individual(s)) Medical Nutrition Therapy Group (2 or More Individual(s)) [id number] ANGELO LOU [facility] OPHTHALMOLOGICAL SERVICES: MEDICAL EXAMINATION AND EVALUATION WITH INITIATION OF DIAGNOSTIC AND TREATMENT PROGRAM; INTERMEDIATE, NEW PATIENT [facility] MEDICAL NUTRITION THERAPY; GROUP (2 OR MORE INDIVIDUAL(S)), EACH 30 MINUTES [facility] Social History Combined list of available smoking, tobacco, and other social history from Department of Defense and Veterans Affairs facilities. Social History Type Response Date Comment Sour e This section is an empty social history section. [facility] Assessment and Plan Combined list of future care activities from Department of Defense and Veterans Affairs facilities (e.g., assessment and plan notes, appointments, orders, and referrals). Additional future care activities may be listed in the Plan of Care section. Result Assessment and Plan Date Source Assessment and Plan No data available for this section 09/30/2024 Ambulatory Pharmacy Functional Status Combined list of recent functional and cognitive assessments recorded at Department of Defense and Veterans Affairs (VA).VA Functional [place] Measurement (FIM) Scale: 1 = Total Assistance (Subject = 0% +), 2 = Maximal Assistance (Subject = 25% +), 3 = Moderate Assistance (Subject = 50% +), 4 = Minimal Assistance (Subject = 75% +), 5 = Supervision, 6 = Modified [place] (Device), 7 = Complete [place] (Timely, Safely). Assessment Date/Time Source Assessment Type Assessment Skill Assessment Score Assessment Details No data available for this section
--- OUTSIDE RECORDS SUMMARY | 2024-09-30 08:09 | XMS_ITS | Clinical Summary ---
Author Organization [facility] [employer] Address [address] [place] [address] Care Team Providers Care Equipment Maintenance Supervisor Name Role Phone Celso Mack MD Primary Care Provider [phone] Source Comments [facility] [employer],non-owned Affiliates and Associated Physician Practices is amultiple site organization consisting of ambulatory clinics and hospital sitesin [place], [place], [place] and [place]. This disclosure is being madepursuant to the Care Everywhere program and may not contain all information available regarding this patient. Last updated 17.[facility] [employer] Allergies No known active allergies Medications * Be aware that medications may not be up to date on this document. Alwaysverify current medications with the patient. sacubitril-vals jarred (Entresto) 97-103 MG tablet Take 97 (ninety seven) tablets to 103 (one hundred three) tablets by mouth 2 times daily 2 Active fluticasone propionate (Flonase) 50 MCG/ACT nasal spray [place] 2 (two) sprays into each nostril once [...] 2023 07/18/2021 DEPRESSION SCREENING 02/26/2024 INFLUENZA VACCINE (#1) 2024 12/05/2018 HEPATITIS B VACCINE Aged Out No longe [...] GÓMEZ Subscriber ID:Not on file (Home) Address: [address] [place] [id number] Payer ID:Not on file Group ID:Not on file Type:Self Pay Address: [place], [place] Care Teams Equipment Maintenance Supervisor Relationship Specialty Start Date End Date Celso Mack MD [address] [place] [address] PCP - General Family Medicine 11/28/21
--- OUTSIDE RECORDS SUMMARY | 2024-09-30 08:09 | XMS_ITS | Clinical Summary ---
Author Organization [facility] [address] Address [address] [place] [address] Care Team Providers Care Administrative Director Name Role Phone Celso Mack MD Primary [...] (08/26/2018): Added automatically from request for surgery [id number] Surgical History Surgery Date Site/Laterality Comments HYSTERECTOMY TOTAL KNEE ARTHROPLASTY Right JOINT REPLACEMENT Right toe joint replacement TONSILLECTOMY UPPER ENDOSCOPIC ULTRASOUND W/ FNA COLONOSCOPY CATARACT EXTRACTION, BILATERAL CATARACT EXTRACTION Medical History Medical History Date Comments Sleep apnea Hyperlipidemia Hypertension GERD (gastroesophageal reflux disease) Left bundle branch block Asthma mild Type 2 diabetes mellitus diet co ntrolled Restless leg syndrome Arthritis Nonrheumatic mitral valve [...] Name Status Comments Father Hugh Paula Had GA at ag e 55 Mother Rose Paula She was 70 when she had stroke Son 1 Wayne Palma Son 2 Eric Palma Son 3 Juan Gómez Social History Tobacco [...] on file Legal Sex Female 11:56 PM PRODUCT SAFETY TESTER Gender Identity Female 02/02/2021 10:01 AM PRODUCT SAFETY TESTER Sexual Orientation Straight 02/02/2021 10 :01 AM PRODUCT SAFETY TESTER Obstetrics History Last Filed Vital Signs Vital [...] season) 2023 11/22/2020, 05/10/2020, 04/19/2020 Influenza Vaccine (#1) 2024 , 11/11/2019, 12/05/2018, Additional history exists Medical Devices Implanted Type Area Dynamite Reclaimer Device Identifier Shelf Expiration Date Model / Serial / Lot Bilateral Total Knee Arthroplasty Bilateral : Knee Angio-Seal Vip 6fr Closere Device [id number] - [id number] Implanted:Qty: 1 on 06/13/2021 by Korina Christie MD at [facility] 03/27/2022 [id number] / / Insurance MEDICARE [employer] MEDICARE FOR LIFE FOR LIFE MEDICARE Advance Directives For more information, please contact: [phone] * Full Code (Latest Code Status on File) Date Activated Date Inactivated Comments 06/13/2021 9:35 AM 06/13/2021 3:31 PM * Full Code Date Activated Date Inactivated Comments 08/27/2018 12:08 PM 08/27/2018 7:02 PM Care Teams Administrative Director Relationship Specialty Start Date End Date Celso Mack MD [address] [facility] [address] [place] [address] PCP - General 12/17/08
--- OUTSIDE RECORDS SUMMARY | 2024-09-30 08:10 | XMS_ITS | Patient Health Record ---
Author Organization [facility] Address [address] [address] Care Team Providers Care Voice Teacher Name Role Phone Celso Mack Primary Care Provider Maximo BOYER EMANUEL Unavailable [phone] Allergies No Known Allergies Reason For Referral No Information Medications Medication SIG (Take, Route, Frequency, Duration) Notes Start Date End Date Status amLODIPine Besylate 10 MG 1 tablet Orall y Once a day; Duration: 30 day(s) Active metFORMIN HCl 500 MG 1 tablet with a saundra l Orally Once a day; Duration: 30 day(s) Active Alpha Lipoic Acid 200 MG as directed Orally Active Cetirizine HCl 10 MG 1 tablet Orally Onc e a day; Duration: 30 day(s) Active Vitamin B Complex - as directed Orally Active Losartan Potassium 100 MG 1 tablet Orall y Once a day; Duration: 30 day(s) Active Vitamin D3 8538593 UNIT/GM as directed Active Atenolol 50 MG 1 tablet Orally Once a day; Duration: 30 day(s) Active Vitamin C 500 MG as directed Orally Active Calcium 500 MG 1 tablet with meals Orally Twice a day; Duration: 30 day(s) Active CeleXA 20 MG 1 tablet Orally Once a day; Duration: 30 day(s) Active Zocor 20 MG 1 tablet in the even ing Orally Once a day; Duration: 30 day(s) Active Aspirin 81 81 MG 1 tablet Orally Once a day; Duration: 30 day(s) Active Senior Multivitamin Plus Active [...] Problem Varicose veins of bilateral lower limbs (43238522765865 106) Varicose veins of both legs with edema (I83.893) Active confirmed Problem Lymphedema (85244471) Lymphedema (I89.0) Active confirmed Plan Of Treatment No Information Insurance Providers Payer Name Payer Address Payer Phone Subscriber Number Group Number Insured Name Patient Relationship to Insured Coverage Start Date Coverage End Date MEDICARE [place] [address] [place], [place] [id number] Scarlett Gómez Self - patient is the insured [facility] [address] [address] [place], [place] [id number] Scarlett Gómez Self - patient is the insured [place]ARE [place] [address] [address] [place], [place] [id number] Scarlett Gómez Self - patient is the insured Medical (General) History Medical History History ICD Code High blood pressure Cataracts Arthritis Asthma Diabetes Surgical History Surgery Date(Month/Year) Knee replacement 02/2017 Hysterectomy 02/1977 Tonsilectomy 1957
[2024-09-30 18:27] LABS: Alanine Aminotransferase 21 U/L (6-35); Albumin Level 4.3 g/dL (3.5-5.1); Alkaline Phosphatase 80 U/L (38-126); Anion Gap 11 mmol/L (4-12); Aspartate Amino Transferase 75 U/L (14-36); Bilirubin,Total 0.5 mg/dL (0.2-1.3); Blood Urea Nitrogen 25 mg/dL (7-17); Calcium 9.6 mg/dL (8.4-10.2); Carbon Dioxide 27 mmol/L (22-30); Chloride 101 mmol/L (98-107); Estimated Glomerular Filt Rate 43; Glucose 108 mg/dL (65-110); Potassium 4.7 mmol/L (3.4-5.0); Sodium 139 mmol/L (137-145); Total Protein 7.8 g/dL (6.3-8.2)
[2024-09-30 18:58] LABS: Hemoglobin A1C 6.6 % (<5.7)
== END 2024-09-30 08:04 | disposition home or self-care (01) ==
PROVIDERS: PCP Family Medicine; Visit Provider Physician Assistant
DX: I10 Essential (primary) hypertension (principal); E11.9 Type 2 diabetes mellitus without complications
CPT/HCPCS: 36415; 80053; 83036

== ENCOUNTER 2024-10-22 07:59 | Outpatient (CLI) | payer MEDICARE, OTHER, SELFPAY ==
--- OUTSIDE RECORDS SUMMARY | 2024-10-22 08:02 | XMS_ITS | Continuity of Care Document ---
Author Name [facility] Organization [facility] Care Team Providers Care Automotive Collision Estimator Name Role Phone [facility] Unavailable Unavailable Problems Combined list of problems from Department of Defense and Veterans Affairs facilities. It does not include entries that were removed or entered in error. Problem Status Onset Date Problem Type Date of Resolution Comments Source VARICOSE VEINS Active Condition DoD BUNION Active Condition DoD PLANTAR FASCIITIS Active Condition [facility] Imaging Studies Nonspecific Abnormal Findings Inactive Condition [facility] STYE (HORDEOLUM EXTERNUM) - RIGHT EYE Inactive Condition [facility] BUNION RIGHT Active Condition DoD anxiety Active Condition [facility] Laboratory Studies Active Condition [facility] Administrative Evaluation Services Active Condition [facility] Preventive Medicine Estab Patient Checkup Adult 40-64 Active Condition [facility] joint pain, localized in the shoulder Active Condition [facility] Total Abdominal Hysterectomy Active Condition [facility] OSTEOARTHRITIS Active Condition [facility] ESSENTIAL HYPERTENSION Active Condition [facility] HYPERLIPIDEMIA FAMILIAL HYPERCHOLESTEROLEMIA Active Condition [facility] SINUSITIS Active Condition DoD visit for: issue repeat prescription for medication Active Condition [facility] X-Ray Inactive Condition [facility] EPISCLERITIS Active Condition [facility] EPISCLERITIS RIGHT EYE Active Condition [facility] Patient Education Dietary Energy Expenditure Inactive Condition [facility] Patient Education Dietary Changing Eating Habits Inactive Condition [facility] OBESITY Active Condition [facility] NORMAL ROUTINE HISTORY AND PHYSICAL Inactive Condition [facility] visit for: administrative purpose Active Condition [facility] D SLEEP APNEA OBSTRUCTIVE Active Condition DoD visit for: screening exam malignant neoplasm breast Inactive Condition [facility] Medications Combined list of outpatient medications from [...] Pharmac y aspirin EC 81 mg tablet = 1 tab(s), Oral, Daily, # 90 EA, 3 total refill(s ), Soft Stop Oral (given by mouth) Ordered 5 2024 90.0 Ambulat ory Pharmac y aspirin EC [...] ory Pharmac y carvedilol 12.5 mg tablet See Instruct ions, Oral, # 180 EA, 2 total refill(s ), Soft Stop Oral (given by mouth) Ordered 5 2024 180.0 Ambulat ory Pharmac y carvedilol 12.5 mg tablet = 1 tab(s), Oral, every 12 hr, # 180 EA, 2 total refill(s ), Hard Stop Oral (given by mouth) Discont inued 10/09/2024 5 2024 180.0 Ambulat ory Pharmac y [...] 1 tab(s), Oral, Daily, # 90 EA, 3 total refill(s ), Soft Stop Oral (given by mouth) Ordered 5 2024 90.0 Ambulat ory Pharmac y citalopram 20 mg tablet = 1 tab(s), Oral, Daily, # 90 EA, 2 total refill(s ), Hard Stop Oral (given by mouth) Discont inued 10/09/2024 5 2024 90.0 Ambulat ory Pharmac y empaglifloz in 10 mg tablet = 1 tab(s), Oral, Daily, # 90 EA, 2 total refill(s ), Soft Stop Oral (given by mouth) Ordered 5 2024 90.0 Ambulat ory Pharmac y empaglifloz in 10 mg tablet = 1 tab(s), Oral, Daily, # 90 EA, 2 total refill(s ), Hard Stop Oral (given by mouth) Discont inued 10/09/2024 5 2024 90.0 Ambulat ory Pharmac y [...] 2022 100.0 Ambulat ory Pharmac y Freestyle [place] Lite Monitor See Instruct ions, Use as [...] 2022 180.0 Ambulat ory Pharmac y metFORMIN ER (eqv-Glucop theodora XR) 500 mg tablet = 1 tab(s), Oral, Daily, # 90 EA, 3 total refill(s ), Soft Stop Oral (given by mouth) Ordered 5 2024 90.0 Ambulat ory Pharmac y metFORMIN XR 500 mg/24 hour tablet = 1 tab(s), Oral, Daily, # 90 EA, 2 total refill(s ), Hard Stop Oral (given by mouth) Discont inued 10/09/2024 5 2024 90.0 Ambulat ory Pharmac y metFORMIN XR 500 mg/24 hour tablet 500 mg, Oral, BID, # 180 EA, 3 total refill(s ), Hard Stop Oral (given by mouth) Complet ed 12/11/2023 3 2023 180.0 Ambulat ory Pharmac y omeprazole DR 40 mg capsule = 1 cap(s), Oral, Daily, # 90 EA, 3 total refill(s ), Soft Stop Oral (given by mouth) Ordered 5 2024 90.0 Ambulat ory Pharmac y omeprazole DR 40 mg capsule = 1 cap(s), Oral, Daily, # 90 EA, 2 total refill(s ), Hard Stop Oral (given by mouth) Discont inued 10/09/2024 5 2024 90.0 Ambulat ory Pharmac y [...] total refill(s ), Hard Stop Discont inued 10/09/2024 4 2024 45.0 Ambulat ory Pharmac y pramipexole 1.5 mg tablet See dose instruct ions in comments , # 45 EA, 2 total refill(s ), Acute Complet ed 02/21/2023 3 2022 45.0 Ambulat ory Pharmac y pramipexole 1.5 mg tablet See Instruct ions, # 45 EA, 3 total refill(s ), Soft Stop Ordered 5 2024 45.0 Ambulat ory Pharmac y sacubitril- valsartan 97 mg-103 mg tablet = 1 tab(s), Oral, BID, # 180 EA, 2 total refill(s ), Soft Stop Oral (given by mouth) Ordered 5 2024 180.0 Ambulat ory Pharmac y sacubitril- valsartan 97 mg-103 mg tablet = 1 tab(s), Oral, BID, # 180 EA, 2 total refill(s ), Hard Stop Oral (given by mouth) Discont inued 10/09/2024 5 2024 180.0 Ambulat ory Pharmac y semaglutide (0.25-0.5mg dose) 2mg/3mL inj-pen [3 mL] See Instruct ions, # 3 mL, 0 total refill(s ), Soft Stop Notes: refriger ate Ordered 5 2024 3.0 Ambulat ory Pharmac y simvastatin 20 mg [...] 1 tab(s), Oral, Daily, # 90 EA, 3 total refill(s ), Soft Stop Oral (given by mouth) Ordered 5 2024 90.0 Ambulat ory Pharmac y simvastatin 20 mg tablet = 1 tab(s), Oral, Daily, # 90 EA, 2 total refill(s ), Hard Stop Oral (given by mouth) Discont inued 10/07/2024 5 2024 90.0 Ambulat ory Pharmac y [...] # 90 EA, 2 total refill(s ), Soft Stop Oral (given by mouth) Ordered 5 2024 90.0 Ambulat ory Pharmac y spironolact one 25 mg tablet = 1 tab(s), Oral, Daily, # 90 EA, 2 total refill(s ), Hard Stop Oral (given by mouth) Discont inued 10/09/2024 5 2024 90.0 Ambulat ory Pharmac y [...] Date Reported Comments [id number] allergy (disorder) active 10/17/2007 [facility] [place] Immunizations Combined list of available immunizations from the Department of Defense and Veterans Affairs facilities. Immunization Series Date Given Administered By Site Reaction Lot Number CVX Code Drug Profile Stitching Machine Operator Status Comments Source zoster recombinant 2023 () Not Given zoster recombina nt DoD zoster recombinant 2023 () Not Given zoster recombina nt DoD SARS-CoV-2 mRNA(marko ubw-kfpf-wkx) vac 2021 [facility] complet ed SARS-CoV- 2 mRNA(oleg willis-t ris-suc)v [...] tetanus, diphtheria, acellular pertu is 2007 Efren lazcano Arm [id number] sanofi pasteur complet ed tetanus, diphtheri a, acellular pertussis 12/30/07 Given Ambulat ory Pharmac y tetanus toxoid, reduced diphtheria toxoid, and acellular pertu is vaccine, adsorbed 1 2007 Unknown, Provider [id number] 115 Sanofi Pasteur ([facility]) complet ed tetanus toxoid, reduced diphtheri a toxoid, and acellular pertussis vaccine, adsorbed DoD influenza virus vaccine, whole virus 2000 Katie joshua Arm [id number] 16 sanofi pasteur complet ed influenza virus vaccine, whole virus 01/13/01 Given Ambulat ory Pharmac y influenza virus vaccine, whole virus 1 2000 Unknown, Provider [id number] 16 Sanofi Pasteur ([facility]) complet ed influenza [...] ADM Date DC Date Status Disposition Source [address] [place] [address] [facility] [place]Sco tt Internal Medicine Tm) OUTPATIENT [id number] rt knee pain x 4 days, unrelie hollie by CINDI Conklin 06/28 Released w/o Limitations [address] [place] [address] [facility] ([facility]S cott Interna l Medicin e Tm) [facility])(Nho tt Internal Medicine Tm) TELE CONSULT [id number] Med Refill VIRGIE BOWLING 07/11 [facility]S cott Interna l Medicin e Tm) 375 [facility] ([facility]Nho tt Internal Medicine Tm) OUTPATIENT [id number] hyperte nsion THEODORE BRAN 08/11 Released w/o Limitations [facility]S cott Interna l Medicin e Tm) [facility])(Nho tt Internal Medicine Tm) TELE CONSULT [id number] questio ns about meds THEODORE BRAN 08/11 [facility]S cott Interna l Medicin e Tm) [facility]) OUTPATIENT [id number] ANGELO LOU 08/24 Released w/o Limitations [facility] ([facility]N utritio nal Medicin e) [facility])(Nho tt Internal Medicine Tm) TELE CONSULT [id number] med refills ERENDIRA VAILA 08/30 [facility]S cott Interna l Medicin e Tm) [facility])(Nho tt Internal Medicine Tm) OUTPATIENT [id number] follow- up HTN, HLP, brest exam THEODORE BRAN 10/04 Released w/o Limitations [facility])(S cott Interna l Medicin e Tm) [facility])(Opt ometry) OUTPATIENT [id number] pt [place] [facility] for possibl e corneal abrasio TIARRA Aden 10/04 Released w/o Limitations [facility]O ptometr y) [facility])([facility] tt Internal Medicine Tm) TELE CONSULT [id number] Med renewal ERENDIRA AVILA 11/[address] [place] [address] Group [facility])(S cott Interna l Medicin e Tm) [facility])([facility] Internal Medicine ) TELE CONSULT [id number] weight loss program / ERENDIRA Meza 11/[address] [place] [address] [facility])(S cott Interna l Medicin e Tm) [address] [place] [address] [facility])([facility] Internal Medicine ) TELE CONSULT [id number] med renewal VIRGIE BOWLING P 03/[address] [place] [address] Group [facility])(S cott Interna l Medicin e Tm) [facility])([facility] Internal Medicine ) OUTPATIENT [id number] cold, cough, sinus x 12 days JUDITH CAMACHO 06/06 Released w/o Limitations [address] [place] [address] [facility])(S cott Interna l Medicin e Tm) [address] [place] [address] [facility])([facility] Internal Medicine ) TELE CONSULT [id number] Blood work results and Possibl e tendoni tis VIRGIE BOWLING P 08/[address] [place] [address] [facility])(S cott Interna l Medicin e Tm) [address] [place] [address] [facility])([facility]am [facility] Non-GME FHI1) TELE CONSULT [id number] hystere ctomy GERMAN HERRMANN Lisa 09/[address] [place] [address] [facility])(F amily Practic e Non-GME FHI1) [address] [place] [address] [facility])([facility] Internal Medicine ) OUTPATIENT [id number] f/u bloodwo carlie [facility] CPT 10/16 Released w/o Limitations [address] [place] [address] [facility])(S cott Interna l Medicin e Tm) [address] [place] [address] [facility])([facility] Internal Medicine ) TELE CONSULT [id number] rad bhavna [facility] CPT 11/[address] [place] [address] [facility])(S cott Interna l Medicin e Tm) [address] [place] [address] [facility])([facility] Internal Medicine ) TELE CONSULT [id number] Request s Appt. KHUSHBOO WONG 05/19 [facility])(S cott Interna l Medicin e Tm) [facility])([facility] Internal Medicine ) OUTPATIENT [id number] f/u ER [id number] , shortne ss of breath, chest discomf ort RODRI, WYATT CPT 06/08 Released w/o Limitations [facility])(S cott Interna l Medicin e Tm) [facility])([facility] Internal Medicine ) TELE CONSULT [id number] Test Results and change Meds KHUSHBOO WONG 06/[address] [place] [address] Group [facility])(S cott Interna l Medicin e Tm) [facility])([facility] Internal Medicine ) OUTPATIENT [id number] foot pain RODRI, WYATT CPT 10/02 Released w/o Limitations [address] [place] [address] [facility]S cott Interna l Medicin e Tm[facility])([facility] Internal Medicine ) TELE CONSULT [id number] ERENDIRA AVILA 10/16 [facility])(S cott Interna l Medicin e Tm) [facility])([facility] Internal Medicine ) TELE CONSULT [id number] med refill EREDNIRA AVILA 11/20 [facility])(S cott Interna l Medicin e Tm) [facility])([facility] Internal Medicine ) TELE CONSULT [id number] lab results RODRI, WYATT CPT 11/26 [facility])(S cott Interna l Medicin e Tm) [facility])([facility] Internal Medicine ) OUTPATIENT [id number] fol b.p. and chol RODRI, WYATT CPT 12/29 Released w/o Limitations [facility])(S cott Interna l Medicin e Tm) [facility])(Sco tt Internal Medicine Tm) OUTPATIENT [id number] left ankle pain RAUL TAM 07/20 Released w/o Limitations [facility] ([facility]S cott Interna l Medicin e Tm) [facility]Arian mat[facility] OUTPATIENT [id number] painful veins KUSUM VELAZQUEZ 08/11 Released w/o Limitations [facility]D ermatol ogy) Procedures Combined list of: 1) Procedures from Department of Veterans Affairs facilities [facility], not all [place] non-surgical procedures are included; 2) All procedures from the Department of Defense facilities. Procedure Procedure Type Code Date Perfomer Comments Karie jacobsen OPHTHALMOLOGICAL SERVICES: MEDICAL EXAMINATION AND EVALUATION WITH INITIATION OF DIAGNOSTIC AND TREATMENT PROGRAM; INTERMEDIATE, NEW PATIENT 006 [facility] MEDICAL NUTRITION THERAPY; GROUP (2 OR MORE INDIVIDUAL(S)), EACH 30 MINUTES 005 [facility] Ophthalmological New Patient Start Intermediate Level Care Ophthalmological New Patient Start Intermediate Level Care [id number] TIARRA BROTHERS [facility] Medical Nutrition Therapy Group (2 or More Individual(s)) Medical Nutrition Therapy Group (2 or More Individual(s)) [id number] ANGELO LOU [facility] No data available for this section Ambulato ry Pharmacy Social History Combined list of available smoking, tobacco, and other social history from Department of Defense and Veterans Affairs facilities. Social History Type Response Date Comment Karie jacobsen This section is an empty social history section. DoD Assessment and Plan Combined list of future care activities from Department of Defense and Veterans Affairs facilities (e.g., assessment and plan notes, appointments, orders, and referrals). Additional future care activities may be listed in the Plan of Care section. Result Assessment and Plan Date Source Assessment and Plan No data available for this section 10/22/2024 Ambulatory Pharmacy Functional Status Combined list of recent functional and cognitive assessments recorded at Department of Defense and Veterans Affairs (VA).VA Functional Dunning Measurement (FIM) Scale: 1 = Total Assistance (Subject = 0% +), 2 = Maximal Assistance (Subject = 25% +), 3 = Moderate Assistance (Subject = 50% +), 4 = Minimal Assistance (Subject = 75% +), 5 = Supervision, 6 = Modified Dunning (Device), 7 = Complete Dunning (Timely, Safely). Assessment Date/Time Source Assessment Type Assessment Skill Assessment Score Assessment Details No data available for this section
--- OUTSIDE RECORDS SUMMARY | 2024-10-22 08:03 | XMS_ITS | Clinical Summary ---
Author Organization [facility] Address [address] [place] [address] Care Team Providers Care Food Service Ambassador Name Role Phone Celso Makc MD Primary Care Provider Source Comments [facility],non-owned Affiliates and Associated Physician Practices is amultiple site organization consisting of ambulatory clinics and hospital sitesin [place], [place] and [place]. This disclosure is being madepursuant to the Care Everywhere program and may not contain all information available regarding this patient. Last updated 17.[facility] Allergies No known active allergies Medications * Be aware that medications may not be up to date on this document. Alwaysverify current medications with the patient. sacubitril-vals jarred (Entresto) 97-103 MG tablet Take 97 (ninety seven) tablets to 103 (one hundred three) tablets by mouth 2 times daily 2 Active fluticasone propionate (Flonase) 50 MCG/ACT nasal spray [place] 2 (two) sprays into each nostril once [...] GÓMEZ Subscriber ID:Not on file (Home) Address: [address] [place] [id number] Payer ID:Not on file Group ID:Not on file Type:Self Pay Address: [place], [place] Care Teams Food Service Ambassador Relationship Specialty Start Date End Date Celso Mack MD [address] [place] [address] PCP - General Family Medicine 11/28/21
--- OUTSIDE RECORDS SUMMARY | 2024-10-22 08:03 | XMS_ITS | Clinical Summary ---
Author Organization [facility] [address] Address [address] [place] [address] Care Team Providers Care Billet Heater Operator Name Role Phone Celso Mack MD [...] (08/26/2018): Added automatically from request for surgery [id number] Surgical History Surgery Date Site/Laterality Comments HYSTERECTOMY [...] Eric Palma Kidney disease Son 3 Juan Góemz Colon cancer Neg Hx Relation Name Status Comments Father Hugh Paula Had [facility] ag e 55 Mother Rose Paula [...] on file Legal Sex Female 11:56 PM RESIDENTIAL SUPPORT SPECIALIST Gender Identity Female 02/02/2021 10:01 AM RESIDENTIAL SUPPORT SPECIALIST Sexual Orientation Straight 02/02/2021 10 :01 AM RESIDENTIAL SUPPORT SPECIALIST Obstetrics History Last Filed Vital Signs Vital [...] Pneumococcal vaccine 65+ (2 of 2 - PPSV23, PCV20, or PCV21) 01/30/2019 12/05/2018, 12/03/2014 Zoster Vaccine (3 of 3) 02/03/2019 12/09/2018, 03/23 Fall Risk Assessment 06/13/2022 06/13/2021 Covid-19 Vaccine ( - 2023-2 5 season) 2023 11/22/2020, 05/10/2020, 04/19/2020 Influenza Vaccine (#1) 2024 , 11/11/2019, 12/05/2018, Additional history exists Medical Devices Implanted Type Area Nailer Machine Device Identifier Shelf Expiration Date Model / Serial / Lot Bilateral Total Knee Arthroplasty Bilateral : Knee Angio-Seal Vip 6fr Closere Device [id number] - [id number] Implanted:Qty: 1 on 06/13/2021 by Korina Christie MD at [facility] 03/27/2022 [id number] / / Insurance [place] [address] FOR LIFE FOR LIFE MEDICARE Advance Directives For more information, please contact: [phone] * Full Code (Latest Code Status on File) Date Activated Date Inactivated Comments 06/13/2021 9:35 AM 06/13/2021 3:31 PM * Full Code Date Activated Date Inactivated Comments 08/27/2018 12:08 PM 08/27/2018 7:02 PM Care Teams Billet Heater Operator Relationship Specialty Start Date End Date Celso Mack MD [address] [facility] [address] [place] [address] PCP - General 12/17/08
--- OUTSIDE RECORDS SUMMARY | 2024-10-22 08:04 | XMS_ITS | Patient Health Record ---
Author Organization [facility] Address [address] [address] Care Team Providers Care Bottom Liner Name Role Phone Celso Mack Primary Care Provider Maximo BOYER EMANUEL Unavailable [phone] Allergies No Known Allergies Reason For Referral [...] day; Duration: 30 day(s) Active Vitamin D3 5876848 UNIT/GM as directed Active Atenolol 50 MG [...] with edema (I83.893) Active confirmed Problem Lymphedema (78172363) Lymphedema (I89.0) Active confirmed Plan Of Treatment No Information Insurance Providers Payer Name Payer Address Payer Phone Subscriber Number Group Number Insured Name Patient Relationship to Insured Coverage Start Date Coverage End Date MEDICARE [place] [address] [place], [place] [id number] Scarlett Gómez Self - patient is the insured [facility] [address] [address] [place], [place] [id number] Scarlett Gómez Self - patient is the insured [place] [address] [address] [place], [place] [id number] Scarlett Gómez Self - patient is the insured Medical (General) History Medical History History ICD Code High blood pressure Cataracts Arthritis Asthma Diabetes Surgical History Surgery Date(Month/Year) Knee replacement 02/2017 Hysterectomy 02/1977 Tonsilectomy 1957
[2024-10-22 14:49] LABS: Alanine Aminotransferase 21 U/L (6-35); Albumin Level 4.2 g/dL (3.5-5.1); Alkaline Phosphatase 69 U/L (38-126); Anion Gap 8 mmol/L (4-12); Aspartate Amino Transferase 53 U/L (14-36); Bilirubin,Total 0.7 mg/dL (0.2-1.3); Blood Urea Nitrogen 30 mg/dL (7-17); Calcium 9.7 mg/dL (8.4-10.2); Carbon Dioxide 26 mmol/L (22-30); Chloride 103 mmol/L (98-107); Estimated Glomerular Filt Rate 45; Glucose 108 mg/dL (65-110); Potassium 4.5 mmol/L (3.4-5.0); Sodium 137 mmol/L (137-145); Total Protein 7.7 g/dL (6.3-8.2)
== END 2024-10-22 08:00 | disposition home or self-care (01) ==
PROVIDERS: PCP Family Medicine; Visit Provider Podiatrist Foot & Ankle Surgery
DX: Z01.818 Encounter for other preprocedural examination (principal)
CPT/HCPCS: 36415; 80053

== ENCOUNTER 2024-10-22 09:27 | Outpatient (CLI) | payer MEDICARE, OTHER, SELFPAY ==
--- OUTSIDE RECORDS SUMMARY | 2024-10-22 09:35 | XMS_ITS | Continuity of Care Document ---
Author Name [facility] Organization [facility] Care Team Providers Care Sponge Diver Name Role Phone [facility] Unavailable Unavailable Problems Combined list of problems from Department of Defense and Veterans Affairs facilities. It does not include entries that were removed or entered in error. Problem Status Onset Date Problem Type Date of Resolution Comments Source VARICOSE VEINS Active Condition DoD BUNION Active Condition DoD PLANTAR FASCIITIS Active Condition [facility] Imaging Studies Nonspecific Abnormal Findings Inactive Condition [facility] STYE (HORDEOLUM EXTERNUM) - RIGHT EYE Inactive Condition [facility] BUNION RIGHT Active Condition DoD anxiety Active Condition [facility] Laboratory Studies Active Condition [facility] Administrative Evaluation Services Active Condition [facility] Preventive Medicine Estab Patient Checkup Adult 40-[address] [facility] joint pain, localized in the shoulder Active Condition [facility] Total Abdominal Hysterectomy Active Condition [facility] OSTEOARTHRITIS Active Condition [facility] ESSENTIAL HYPERTENSION Active Condition [facility] HYPERLIPIDEMIA FAMILIAL HYPERCHOLESTEROLEMIA Active Condition [facility] SINUSITIS Active Condition DoD visit for: issue repeat prescription for medication Active Condition [facility] X-Ray Inactive Condition [facility] EPISCLERITIS Active Condition [facility] EPISCLERITIS RIGHT EYE Active Condition [facility] Patient Education Dietary Energy Expenditure Inactive Condition [facility] Patient Education Dietary Changing Eating Habits Inactive Condition [facility] OBESITY Active Condition [facility] NORMAL ROUTINE HISTORY AND PHYSICAL Inactive Condition [facility] visit for: administrative purpose Active Condition Do D SLEEP APNEA OBSTRUCTIVE Active Condition DoD visit for: screening exam malignant neoplasm breast Inactive Condition [facility] Medications Combined list of outpatient medications [...] 2022 100.0 Ambulat ory Pharmac y Freestyle Wallace Lite Monitor See Instruct ions, Use as [...] Date Reported Comments Source NO OUTPUT FOR [facility] INSTITUTED 157061 Drug allergy (disorder) active 10/17/2007 [facility] Immunizations Combined list of available immunizations from the Department of Defense and Veterans Affairs facilities. Immunization Series Date Given Administered By Site Reaction Lot Number CVX Code Drug Chief Nurse Anesthetist Status Comments Source zoster recombinant 2023 () Not Given zoster recombina nt DoD zoster recombinant 2023 () Not Given zoster recombina nt DoD SARS-CoV-2 mRNA(marko thx-vtqb-nho) vac 2021 [address] [facility] complet ed SARS-CoV- 2 mRNA(oleg willis-t [...] acellular pertu is 2007 Efren lazcano Arm [id number] sanofi pasteur complet ed tetanus, diphtheri a, acellular pertussis 12/30/07 Given Ambulat ory Pharmac y tetanus toxoid, reduced diphtheria toxoid, and acellular pertu is vaccine, adsorbed 1 2007 Unknown, Provider [id number] 115 Sanofi Pasteur ([facility]) complet ed tetanus toxoid, reduced diphtheri a toxoid, and acellular pertussis vaccine, adsorbed DoD influenza virus vaccine, whole virus 2000 Katie joshua Arm [id number] 16 sanofi pasteur complet ed influenza virus vaccine, whole virus 01/13/01 Given Ambulat ory Pharmac y influenza virus vaccine, whole virus 1 2000 Unknown, Provider [id number] 16 Sanofi Pasteur ([facility]) complet ed influenza [...] ADM Date DC Date Status Disposition Source [address] [place] [address] [facility]Sco tt Internal Medicine Tm) OUTPATIENT [id number] rt knee pain x 4 days, unrelie hollie by CINDI Conklin 06/28 Released w/o Limitations [address] [place] [address] [facility] ([facility])(S cott Interna l Medicin e Tm) [facility]Wvo tt Internal Medicine Tm) TELE CONSULT [id number] Med Refill VIRGIE BOWLING 07/11 [facility] ([facility])(S cott Interna l Medicin e Tm) [address] [facility] ([facility]Wvo tt Internal Medicine Tm) OUTPATIENT [id number] hyperte nsion THEODORE BRAN 08/11 Released w/o Limitations Medical [facility] ([facility])(S cott Interna l Medicin e Tm) [facility])(Wvo tt Internal Medicine Tm) TELE CONSULT [id number] questio ns about meds THEODORE BRAN 08/11 [facility] ([facility])(S cott Interna l Medicin e Tm) [facility] Medical [facility])([facility] Medicine) OUTPATIENT [id number] ANGELO LOU 08/24 Released w/o Limitations [facility] ([facility])(N utritio nal Medicin e) [facility])(Wvo tt Internal Medicine Tm) TELE CONSULT [id number] med refills ERENDIRA AVILA 08/30 [facility] ([facility]S cott Interna l Medicin e Tm) [facility] Medical [facility])(Wvo tt Internal Medicine Tm) OUTPATIENT [id number] follow- up HTN, HLP, brest exam THEODORE BRAN 10/04 Released w/o Limitations [facility])(S cott Interna l Medicin e Tm) [facility])(Opt ometry) OUTPATIENT [id number] pt here from [facility] for possibl e corneal abrasio TIARRA Aden 10/04 Released w/o Limitations [facility] ([facility])(O ptometr y) [facility] Medical [facility])([facility] tt Internal Medicine Tm) TELE CONSULT [id number] Med renewal ERENDIRA AVILA 11/[address] [place] [address] Group [facility])(S cott Interna l Medicin e Tm) [facility] Medical [facility])([facility] Internal Medicine ) TELE CONSULT [id number] weight loss program / ERENDIRA Meza 11/[address] [place] [address] [facility])(S cott Interna l Medicin e Tm) [address] [place] [address] [facility])([facility] Internal Medicine ) TELE CONSULT [id number] med renewal VIRGIE BOWLING P 03/[address] [place] [address] Group [facility])(S cott Interna l Medicin e Tm) [facility] Medical [facility])([facility] Internal Medicine ) OUTPATIENT [id number] cold, cough, sinus x 12 days JUDITH CAMACHO 06/06 Released w/o Limitations [address] [place] [address] [facility])(S cott Interna l Medicin e Tm) [address] [place] [address] [facility])([facility] Internal Medicine ) TELE CONSULT [id number] Blood work results and Possibl e tendoni tis VIRGIE BOWLING P 08/[address] [place] [address] Group [facility])(S cott Interna l Medicin e Tm) [address] [place] [address] [facility])([facility]am [facility] Non-GME FHI1) TELE CONSULT [id number] hystere ctomy GERMAN HERRMANN Lisa 09/[address] [place] [address] [facility])(F amily Practic e Non-GME FHI1) [address] [place] [address] [facility])([facility] Internal Medicine ) OUTPATIENT [id number] f/u bloodwo carlie [facility] CPT 10/16 Released w/o Limitations [address] [place] [address] [facility])(S cott Interna l Medicin e Tm) [address] [place] [address] [facility])([facility] Internal Medicine ) TELE CONSULT [id number] rad bhavna [facility] CPT 11/[address] [place] [address] [facility])(S cott Interna l Medicin e Tm) [address] [place] [address] [facility])([facility] Internal Medicine ) TELE CONSULT [id number] Request s Appt. KHUSHBOO WONG 05/19 [facility])(S cott Interna l Medicin e Tm) [facility])([facility] Internal Medicine ) OUTPATIENT [id number] f/u ER [id number] , shortne ss of breath, chest discomf ort RODRI, WYATT CPT 06/08 Released w/o Limitations [facility])(S cott Interna l Medicin e Tm) [facility])([facility] Internal Medicine ) TELE CONSULT [id number] Test Results and change Meds KHUSHBOO WONG 06/[address] [place] [address] Group [facility])(S cott Interna l Medicin e Tm) [facility] Medical [facility])([facility] Internal Medicine ) OUTPATIENT [id number] foot pain RODRI, WYATT CPT 10/02 Released w/o Limitations [address] [place] [address] [facility] ([facility])(S cott Interna l Medicin e Tm) [facility] Medical [facility])([facility] Internal Medicine ) TELE CONSULT [id number] ERENDIRA AVILA 10/16 [facility])(S cott Interna l Medicin e Tm) [facility] Medical [facility])([facility] Internal Medicine ) TELE CONSULT [id number] med refill ERENDIRA AVILA 11/20 [facility])(S cott Interna l Medicin e Tm) [facility])([facility] Internal Medicine ) TELE CONSULT [id number] lab results RODRI, WYATT CPT 11/26 [facility])(S cott Interna l Medicin e Tm) [facility])([facility] Internal Medicine ) OUTPATIENT [id number] fol b.p. and chol RODRI, WYATT CPT 12/29 Released w/o Limitations [facility])(S cott Interna l Medicin e Tm) [facility])(Sco tt Internal Medicine Tm) OUTPATIENT [id number] left ankle pain RAUL TAM 07/20 Released w/o Limitations [facility] ([facility])(S cott Interna l Medicin e Tm) [facility])(Arian matology) OUTPATIENT [id number] painful veins KUSUM VELAZQUEZ 08/11 Released w/o Limitations [facility] Group [facility])(D ermatol ogy) Procedures Combined list of: 1) Procedures from Department of Veterans Affairs facilities [facility], not all [place] non-surgical procedures are included; 2) All procedures from the Department of Defense facilities. Procedure Procedure Type Code Date Perfomer Comments Karie jacobsen OPHTHALMOLOGICAL SERVICES: MEDICAL EXAMINATION AND EVALUATION WITH INITIATION OF DIAGNOSTIC AND TREATMENT PROGRAM; INTERMEDIATE, NEW PATIENT 006 [facility] MEDICAL NUTRITION THERAPY; GROUP (2 OR MORE INDIVIDUAL(S)), EACH [address] [facility] Ophthalmological New Patient Start Intermediate Level Care Ophthalmological New Patient Start Intermediate Level Care [address] [address] [facility] Medical Nutrition Therapy Group (2 or More Individual(s)) Medical Nutrition Therapy Group (2 or More Individual(s)) [id number] [address] [facility] No data available for this section Ambulato [...] of Defense and Veterans Affairs (VA).VA Functional [place] Measurement (FIM) Scale: 1 = Total Assistance (Subject = 0% +), 2 = Maximal Assistance (Subject = 25% +), 3 = Moderate Assistance (Subject = 50% +), 4 = Minimal Assistance (Subject = 75% +), 5 = Supervision, 6 = Modified Winifrede (Device), 7 = Complete Win[place] (Timely, Safely). Assessment Date/Time Source Assessment Type Assessment Skill Assessment Score Assessment Details No data available for this section
--- OUTSIDE RECORDS SUMMARY | 2024-10-22 09:40 | XMS_ITS | Clinical Summary ---
Author Organization [facility] [address] Address [address] [place] [address] Care Team Providers Care Sql Dba Name Role Phone Celso Mack MD Primary [...] (08/26/2018): Added automatically from request for surgery [id number] Surgical History Surgery Date Site/Laterality Comments HYSTERECTOMY [...] on file Legal Sex Female 11:56 PM NEWS REEL CAMERAMAN Gender Identity Female 02/02/2021 10:01 AM NEWS REEL CAMERAMAN Sexual Orientation Straight 02/02/2021 10 :01 AM NEWS REEL CAMERAMAN Obstetrics History Last Filed Vital Signs Vital [...] history exists Medical Devices Implanted Type Area Telephone Solicitor Device Identifier Shelf Expiration Date Model / Serial / Lot Bilateral Total Knee Arthroplasty Bilateral : Knee Angio-Seal Vip 6fr Closere Device [id number] - [id number] Implanted:Qty: 1 on 06/13/2021 by Korina Christie MD at [facility] 03/27/2022 [id number] / / Insurance MEDICARE [place] MEDICARE [facility] Address: [facility] [address] [place] [address] FOR LIFE FOR LIFE MEDICARE Advance Directives For more information, please contact: [phone] * Full Code (Latest Code Status on File) Date Activated Date Inactivated Comments 06/13/2021 9:35 AM 06/13/2021 3:31 PM * Full Code Date Activated Date Inactivated Comments 08/27/2018 12:08 PM 08/27/2018 7:02 PM Care Teams Sql Dba Relationship Specialty Start Date End Date Celso Mack MD [address] [facility] [address] [place] [address] PCP - General 12/17/08
--- OUTSIDE RECORDS SUMMARY | 2024-10-22 09:40 | XMS_ITS | Clinical Summary ---
Author Organization [facility] Address [address] [place] [address] Care Team Providers Care Grinding Machine Operator Name Role Phone Celso Mack MD Primary Care Provider Source Comments [facility],non-owned Affiliates and Associated Physician Practices is amultiple site organization consisting of ambulatory clinics and hospital sitesin [place], [place], [place] and [place]. This disclosure is being madepursuant to the Care Everywhere program and may not contain all information available regarding this patient. Last updated 17.[facility] Allergies No known active allergies Medications * Be aware that medications may not be up to date on this document. Alwaysverify current medications with the patient. sacubitril-vals jarred (Entresto) 97-103 MG tablet Take 97 (ninety seven) tablets to 103 (one hundred three) tablets by mouth 2 times daily 2 Active fluticasone propionate (Flonase) 50 MCG/ACT nasal spray [place] 2 (two) sprays into each nostril once [...] GÓMEZ Subscriber ID:Not on file (Home) Address: [address] [place] [id number] Payer ID:Not on file Group ID:Not on file Type:Self Pay Address: [place], [place] Care Teams Grinding Machine Operator Relationship Specialty Start Date End Date Celso Mack MD [address] [place] [address] PCP - General Family Medicine 11/28/21
--- NOTE | 2024-10-22 09:45 | ECG_ITS ---
Test Date: 2024-10-22 09:56:04 Measurements Intervals [place] Rate: 73 P: 50 [place]: 194 QRS: -48 QRSD: 160 T: 65 QT: 435 QTc: 481 Interpretive Statements SINUS RHYTHM WITH OCCASIONAL VENTRICULAR PREMATURE COMPLEXES LEFT AXIS DEVIATION LEFT BUNDLE BRANCH BLOCK ABNORMAL ECG Compared to ECG 12/09/2023 19:06:26 Ventricular premature complex(es) now present Electronically Signed On 10-22-2024 10:30:20 CDT by Tom Hernandez D.O.
== END 2024-10-22 09:28 | disposition home or self-care (01) ==
LOC: ANHCARD 09:29
PROVIDERS: PCP Family Medicine; Visit Provider Podiatrist Foot & Ankle Surgery
DX: Z01.818 Encounter for other preprocedural examination (principal); I44.7 Left bundle-branch block, unspecified
CPT/HCPCS: 36415; 80053; 93005

== ENCOUNTER 2024-12-02 08:13 | Outpatient (CLI) | payer MEDICARE, OTHER, SELFPAY ==
[2024-12-02 11:08] LABS: Anion Gap 9 mmol/L (4-12); Blood Urea Nitrogen 28 mg/dL (7-17); Calcium 9.4 mg/dL (8.4-10.2); Carbon Dioxide 29 mmol/L (22-30); Chloride 100 mmol/L (98-107); Estimated Glomerular Filt Rate 47; Glucose 108 mg/dL (65-110); Potassium 4.2 mmol/L (3.4-5.0); Sodium 138 mmol/L (137-145)
[2024-12-02 11:20] LABS: INR 1.0; Prothrombin Time 13.5 Seconds (11.1-14.7)
[2024-12-02 11:21] LABS: Partial Thromboplastin Time 31.7 Seconds (22.3-36.8)
== END 2024-12-02 08:14 | disposition home or self-care (01) ==
LOC: ANHGOSHLAB 08:14
PROVIDERS: PCP Family Medicine; Visit Provider Anesthesiology
DX: N18.30 Chronic kidney disease, stage 3 unspecified (principal)
CPT/HCPCS: 36415; 80048; 85610; 85730

== ENCOUNTER 2025-02-04 07:59 | Outpatient (CLI) | payer MEDICARE, OTHER, SELFPAY ==
[2025-02-04 18:42] LABS: Add Urine Microscopic? NO; Appearance Urine Clear (Clear); Glucose Urine UA 3+ mg/dL (Negative); Leukocyte Esterase Ur Negative LEU/UL (Negative); Nitrate Urine Negative (Negative); Specific Grav Ur 1.011 (1.001-1.035)
[2025-02-04 19:07] LABS: Hematocrit 43.7 % (37.0-47.0); Hemoglobin 14.3 g/dL (12.0-15.0); Mean Corpuscular HGB Conc 32.7 g/dl (32-36); Mean Corpuscular Hemoglobin 29.8 pg (26-34); Mean Corpuscular Volume 91.0 fl (80-100); Platelet Count Result 195 k/mm3 (150-375); Red Blood Count 4.80 M/mm3 (4.2-5.4); White Blood Count 8.3 K/mm3 (4.5-10.0)
[2025-02-04 19:22] LABS: MALB Creatinine Ratio 14.8 mg/g (0-30)
[2025-02-04 20:21] LABS: Alanine Aminotransferase 21 U/L (6-35); Albumin Level 4.4 g/dL (3.5-5.1); Alkaline Phosphatase 78 U/L (38-126); Anion Gap 8 mmol/L (4-12); Aspartate Amino Transferase 38 U/L (14-36); Bilirubin,Total 0.6 mg/dL (0.2-1.3); Blood Urea Nitrogen 25 mg/dL (7-17); Calcium 9.7 mg/dL (8.4-10.2); Carbon Dioxide 26 mmol/L (22-30); Chloride 102 mmol/L (98-107); Cholesterol 131 mg/dL (0-200); Estimated Glomerular Filt Rate 46; Glucose 112 mg/dL (65-110); HDL Direct 33 mg/dL; Potassium 4.4 mmol/L (3.4-5.0); Sodium 136 mmol/L (137-145); Total Protein 7.8 g/dL (6.3-8.2); Triglycerides 247 mg/dL (<150)
[2025-02-04 20:51] LABS: Thyroid Stimulating Hormone 2.410 uIU/mL (0.465-4.680)
[2025-02-04 21:27] LABS: Hemoglobin A1C 6.0 % (<5.7)
== END 2025-02-04 08:00 | disposition home or self-care (01) ==
PROVIDERS: PCP Family Medicine; Visit Provider Physician Assistant
DX: E11.40 Type 2 diabetes mellitus with diabetic neuropathy, unspecified (principal); I11.0 Hypertensive heart disease with heart failure; I50.9 Heart failure, unspecified; K21.9 Gastro-esophageal reflux disease without esophagitis; K76.0 Fatty (change of) liver, not elsewhere classified; K86.2 Cyst of pancreas
CPT/HCPCS: 36415; 80053; 80061; 81003; 82043; 83036; 84443; 85027